=== PATIENT | female | born 1975 | race Caucasian/White ===

== ENCOUNTER 2020-04-26 15:41 | Outpatient (CLI) | payer BC, SELFPAY ==
--- NOTE | ~2020-04-26 | XR_ITS ---
XR knee RT 3V 04/26/2020 16:04 INDICATION: Right knee pain PROCEDURE: 3 views right knee COMPARISON: 04/03/2015 FINDINGS: Fracture, dislocation or subluxation is not identified. No significant joint effusion. The soft tissues appear within normal limits. No foreign bodies are identified. IMPRESSION: 1: NO ACUTE BONE OR JOINT ABNORMALITY IDENTIFIED. Reviewed, dictated and finalized at location B.
== END 2020-04-26 15:42 | disposition home or self-care (01) ==
PROVIDERS: Visit Provider Physician Assistant
DX: M25.561 Pain in right knee (principal)
CPT/HCPCS: 73562

== ENCOUNTER 2020-05-04 16:26 | Emergency (ER) | payer BC, SELFPAY ==
--- NOTE | ~2020-05-04 | CT_ITS ---
EXAMINATION: CT abdomen pelvis w con INDICATION: Abdominal pain TECHNIQUE: Computed tomographic images of the abdomen and pelvis were obtained after the administrati on of 100 cc of Omnipaque 350 intravenous contrast. The dose-length product (DLP) was 1308.52 mGy-cm. Automated exposure control and iterative reconstruction technique were employed. COMPARISON: 09/25/2016 FINDINGS: Minimal dependent atelectasis is present in the lung bases. The heart size is normal. The g allbladder is surgically absent. The liver, spleen, pancreas, and adrenal glands are normal. The kidn eys are unremarkable. No pathologically enlarged abdominal or pelvic lymph nodes are identified. Ther e is no free intraperitoneal gas or evidence of bowel obstruction. The appendix is normal. There is a fat-containing umbilical hernia. Mild lumbar spondylosis is noted. IMPRESSION: 1. No CT correlate for the patient's symptoms. Reviewed, dictated and finalized at location A.
[2020-05-04 16:54] VITALS: BP 160/58; PULSE 87; RESP 18; TEMP 36.9; O2SAT 100
[2020-05-04 17:30] LABS: Basophils Percent Auto 0.5 % (0.2-1.2); Eosinophils Absolute Auto 0.4 K/mm3 (0-0.3); Eosinophils Percent Auto 4.6 % (0-4.4); Hematocrit 43.7 % (37.0-47.0); Hemoglobin 14.4 g/dL (12.0-15.0); Immature Granulocyte Absolute 0.02 K/mm3 (0.00-0.031); Immature Granulocyte Percent A 0.2 % (0-0.5); Lymphocytes Absolute Auto 2.43 K/mm3 (0.9-3.2); Lymphocytes Percent Auto 29.6 % (18.3-44.2); Mean Corpuscular Hemoglobin 31.6 pg (26-34); Mean Corpuscular Volume 95.8 fl (80-100); Mean Platelet Volume 10.5 fl (7.4-10.4); Monocytes Absolute Auto 0.6 K/mm3 (0.1-0.6); Monocytes Percent Auto 7.4 % (2.6-8.5); Neutrophils Absolute Auto 4.7 K/mm3 (1.3-6.7); Neutrophils Percent Auto 57.7 % (45.5-73.1); Platelet Count Result 264 k/mm3 (150-375); Red Blood Count 4.56 M/mm3 (4.2-5.4); Red Cell Distribution Width 12.9 % (11.5-14.5); White Blood Count 8.2 K/mm3 (4.5-10.0)
[2020-05-04 17:33] LABS: Add Urine Microscopic? NO; Appearance Urine Clear (Clear); Bilirubin Urine Negative (Negative); Blood Urine Negative (Negative); Color Urine Colorless (Yellow); Glucose Urine UA Negative (Negative); Ketones Urine Negative (Negative); Leukocyte Esterase Ur Negative LEU/UL (Negative); Nitrate Urine Negative (Negative); Protein Urine Negative (Negative); Urobilinogen Urine Negative mg/dL (<2.0)
[2020-05-04 17:36] LABS: Specific Grav Ur 1.003 (1.001-1.035)
[2020-05-04 17:41] LABS: Alanine Aminotransferase 27 U/L (4-35); Albumin Level 4.3 g/dL (3.5-5.1); Alkaline Phosphatase 118 U/L (38-126); Anion Gap 6 mmol/L (8-16); Aspartate Amino Transferase 25 U/L (14-36); Bilirubin,Total 0.4 mg/dL (0.2-1.3); Blood Urea Nitrogen 16 mg/dL (7-17); Calcium 9.6 mg/dL (8.4-10.2); Carbon Dioxide 27 mmol/L (22-30); Chloride 105 mmol/L (98-107); Estimated Glomerular Filt Rate > 60; Glucose 109 mg/dL (65-105); Lipase 85 U/L (23-300); Potassium 3.9 mmol/L (3.4-5.0); Sodium 138 mmol/L (137-145)
[2020-05-04] MEDS: SODIUM CHLORIDE 0.9% IV 1,000 ML 999 ML IV CONT (18:47)
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
[2020-05-04 20:28] VITALS: BP 138/72; PULSE 68; RESP 16; O2SAT 99
== END 2020-05-04 20:45 | disposition home or self-care (01) ==
PROVIDERS: Emergency Medicine; Emergency Provider Emergency Medicine; PCP Physician Assistant
DX: R10.13 Epigastric pain (principal)
CPT/HCPCS: 36415; 74177; 80053; 81003; 81025; 83690; 85025; 96360; 99284; J7030; Q9967

== ENCOUNTER 2020-09-17 16:53 | Outpatient (CLI) | payer BC, SELFPAY ==
[2020-09-17 17:30] LABS: Hematocrit 41.8 % (37.0-47.0); Mean Corpuscular HGB Conc 33.5 g/dl (32-36); Mean Corpuscular Hemoglobin 32.6 pg (26-34); Mean Corpuscular Volume 97.2 fl (80-100); Platelet Count Result 246 k/mm3 (150-375); Red Cell Distribution Width 13.1 % (11.5-14.5); White Blood Count 9.5 K/mm3 (4.5-10.0)
[2020-09-17 17:48] LABS: Alanine Aminotransferase 22 U/L (4-35); Albumin Level 4.1 g/dL (3.5-5.1); Alkaline Phosphatase 113 U/L (38-126); Anion Gap 5 mmol/L (8-16); Aspartate Amino Transferase 23 U/L (14-36); Bilirubin,Total 0.3 mg/dL (0.2-1.3); Blood Urea Nitrogen 14 mg/dL (7-17); CRP 0.7 mg/dL (<1.0); Calcium 9.4 mg/dL (8.4-10.2); Carbon Dioxide 29 mmol/L (22-30); Chloride 106 mmol/L (98-107); Estimated Glomerular Filt Rate > 60; Glucose 104 mg/dL (65-105); Lipase 73 U/L (23-300); Potassium 3.6 mmol/L (3.4-5.0); Sodium 140 mmol/L (137-145)
[2020-09-17 18:04] LABS: Amylase 58 U/L (30-110)
== END 2020-09-17 16:54 | disposition home or self-care (01) ==
LOC: ANHLAB 16:55
PROVIDERS: PCP Physician Assistant; Visit Provider Internal Medicine Gastroenterology
DX: R10.84 Generalized abdominal pain (principal); R11.0 Nausea
CPT/HCPCS: 36415; 80053; 82150; 83690; 85027; 86140

== ENCOUNTER 2021-03-10 19:22 | Emergency (ER) | payer SELFPAY ==
--- NOTE | 2021-03-10 20:24 | PC.NURSE ---
no answer for triage at 2023.
[2021-03-10 20:25] VITALS: BP 124/78; PULSE 90; RESP 18; TEMP 38.1; O2SAT 97
--- NOTE | 2021-03-10 22:12 | PC.NURSE ---
pt states my is gonna come get me and i'm gonna go lie down . ambulatory c steady, even, unassisted gait. speech clear. ambulatory out of ed waiting room.
== END 2021-03-10 22:27 | disposition left against medical advice (07) ==
LOC: ANHED 22:21
PROVIDERS: PCP Physician Assistant
DX: R50.9 Fever, unspecified (principal)
CPT/HCPCS: 99199

== ENCOUNTER → 2021-04-17 13:49 | Outpatient (CLI) | payer OTHER, SELFPAY ==
--- NOTE | ~2021-04-17 | US_ITS ---
EXAMINATION: US pelvic complete w TV EXAM DATE: 04/17/2021 14:59 INDICATION: Other intra-abdominal and pelvic swelling, mass and lump . CT scan at outside institution . TECHNIQUE: Pelvic transabdominal and transvaginal sonogram was performed. There are multiple graysca le and Doppler images available for interpretation. Comparison is made to prior examination from 10/30. Correlation was made with CT abdomen pelvis 05/04/2020. FINDINGS: Uterus measures 13.3 x 8.1 cm cm, suboptimally visualized due to left pelvic mass. Endomet rial stripe not well visualized. There is no free pelvic fluid. Right adnexa: Right ovary measures 9.0 x 6.6 x 8.1 cm, has complex cystic appearance, new compared to 2010. Correlation made to CT abdomen pelvis 01/02/2020, this is also new compared to that exam. Left adnexa: Surgically removed IMPRESSION: Right ovarian pelvic mass, new compared to last year. Differential diagnosis includes hem orrhagic cyst, endometrioma, malignant or benign cystic ovarian neoplasm. Options include 6 week foll ow-up pelvic sonogram, pelvic MR, or histologic correlation. Reviewed, dictated and finalized at location A. IMPRESSION: Right ovarian pelvic mass, new compared to last year. Differential diagnosis includes hemorrhagic cyst, endometrioma, malignant or benign cystic o varian neoplasm. Options include 6 week follow-up pelvic sonogram, pelvic MR, o r histologic correlation.
== END ==
PROVIDERS: PCP Physician Assistant; Visit Provider Nurse Practitioner
DX: R19.09 Other intra-abdominal and pelvic swelling, mass and lump (principal); R93.89 Abnormal findings on diagnostic imaging of other specified body structures
CPT/HCPCS: 76830; 76856

== ENCOUNTER 2021-04-18 08:52 | Outpatient (CLI) | payer OTHER, SELFPAY ==
[2021-04-21 00:57] LABS: CA-125 21 U/mL (<35)
== END 2021-04-18 08:53 | disposition home or self-care (01) ==
LOC: ANHLAB 08:56
PROVIDERS: PCP Physician Assistant; Visit Provider Obstetrics & Gynecology Gynecology
DX: N83.291 Other ovarian cyst, right side (principal)
CPT/HCPCS: 36415; 86304

== ENCOUNTER → 2021-05-16 13:04 | Outpatient (CLI) | payer OTHER, SELFPAY ==
--- NOTE | ~2021-05-16 | US_ITS ---
EXAMINATION: US pelvic complete w TV DATE: 05/16/2021 13:32 INDICATION: Unspecified ovarian cyst, right. Pelvic pain. TECHNIQUE: Multiple transabdominal and transvaginal sonographic images of the pelvis were obtained. COMPARISON: Ultrasound 04/17/2021, CT abdomen and pelvis 03/21/2021, 05/04/2020 FINDINGS: TRANSABDOMINAL ULTRASOUND: The uterus measures 5.7 x 3.6 x 3.3 cm. There is no free fluid in the pelvis. TRANSVAGINAL ULTRASOUND: The endometrial complex measures 8 mm in thickness. There is a 1.8 cm hypoechoic intramural fibroid i n the uterine fundus. There is a 7.7 x 6.7 x 6.5 cm hypoechoic mass in the left adnexa. The ovaries a re not visualized. IMPRESSION: 1. 7.7 cm left adnexal mass with improvement from 03/21/2021, consistent with hematoma. 2. Uterine fibroid. 3. Ovaries not visualized. Reviewed, dictated and finalized at location A. IMPRESSION: 1. 7.7 cm left adnexal mass with improvement from 03/21/2021, consistent with he matoma. 2. Uterine fibroid. 3. Ovaries not visualized.
== END ==
PROVIDERS: PCP Family Medicine; Visit Provider Nurse Practitioner
DX: N83.201 Unspecified ovarian cyst, right side (principal); D25.9 Leiomyoma of uterus, unspecified
CPT/HCPCS: 76830; 76856

== ENCOUNTER 2021-05-27 10:11 | Outpatient (CLI) | payer OTHER, SELFPAY ==
--- NOTE | ~2021-05-27 | XR_ITS ---
EXAMINATION: XR chest 2V 05/27/2021 14:21 INDICATION: Covid19. Dyspnea. PROCEDURE: 2 view chest COMPARISON: 05/22/2016 FINDINGS: The lungs are clear. The cardiomediastinal silhouette is within normal limits. There are no pleural effusions. There is no pneumothorax suspected. IMPRESSION: 1: NO ACUTE CARDIOPULMONARY DISEASE. Reviewed, dictated and finalized at location B.
[2021-05-27 10:54] LABS: Basophils Absolute Auto 0.1 K/mm3 (0.0-0.1); Basophils Percent Auto 1.1 % (0.2-1.2); Eosinophils Absolute Auto 0.2 K/mm3 (0-0.3); Eosinophils Percent Auto 3.4 % (0-4.4); Hematocrit 42.9 % (37.0-47.0); Hemoglobin 14.1 g/dL (12.0-15.0); Immature Granulocyte Absolute 0.01 K/mm3 (0.00-0.031); Immature Granulocyte Percent A 0.2 % (0-0.5); Lymphocytes Percent Auto 37.4 % (18.3-44.2); Mean Corpuscular HGB Conc 32.9 g/dl (32-36); Mean Corpuscular Hemoglobin 31.3 pg (26-34); Mean Corpuscular Volume 95.3 fl (80-100); Mean Platelet Volume 9.8 fl (7.4-10.4); Monocytes Absolute Auto 0.4 K/mm3 (0.1-0.6); Monocytes Percent Auto 7.8 % (2.6-8.5); Neutrophils Absolute Auto 2.8 K/mm3 (1.3-6.7); Neutrophils Percent Auto 50.1 % (45.5-73.1); Platelet Count Result 251 k/mm3 (150-375); Red Cell Distribution Width 13.8 % (11.5-14.5); White Blood Count 5.6 K/mm3 (4.5-10.0)
[2021-05-27 11:14] LABS: Cholesterol 287 mg/dL (0-200); HDL Direct 38 mg/dL; Triglycerides 253 mg/dL (<150)
[2021-05-27 11:26] LABS: LDL Cholesterol Direct 205 mg/dL
[2021-05-27 12:06] LABS: Iron 126 ug/dL (37-170)
[2021-05-27 12:15] LABS: Percent Iron Saturation 54 % (20-50)
[2021-05-27 12:27] LABS: Folic Acid 12.9 ng/mL (2.76->20)
== END 2021-05-27 10:12 | disposition home or self-care (01) ==
PROVIDERS: PCP Family Medicine; Visit Provider Nurse Practitioner Family
DX: U07.1 COVID-19 (principal); D64.9 Anemia, unspecified; J12.82 Pneumonia due to coronavirus disease 2019; R53.1 Weakness; Z13.220 Encounter for screening for lipoid disorders
CPT/HCPCS: 36415; 71046; 80061; 82607; 82728; 82746; 83540; 83550; 84443; 85025

== ENCOUNTER 2021-06-06 10:27 | Outpatient (CLI) | payer OTHER, SELFPAY ==
[2021-06-06 11:27] LABS: Alanine Aminotransferase 25 U/L (4-35); Alkaline Phosphatase 83 U/L (38-126); Anion Gap 5 mmol/L (8-16); Aspartate Amino Transferase 29 U/L (14-36); Bilirubin,Total 0.5 mg/dL (0.2-1.3); Blood Urea Nitrogen 6 mg/dL (7-17); Calcium 9.8 mg/dL (8.4-10.2); Carbon Dioxide 30 mmol/L (22-30); Chloride 104 mmol/L (98-107); Estimated Glomerular Filt Rate > 60; Glucose 95 mg/dL (65-110); Potassium 3.5 mmol/L (3.4-5.0); Sodium 139 mmol/L (137-145)
== END 2021-06-06 10:28 | disposition home or self-care (01) ==
LOC: ANHLAB 10:29
PROVIDERS: PCP Family Medicine; Visit Provider Nurse Practitioner Family
DX: D64.9 Anemia, unspecified (principal); R53.1 Weakness; Z68.31 Body mass index [BMI] 31.0-31.9, adult; U07.1 COVID-19; J12.82 Pneumonia due to coronavirus disease 2019
CPT/HCPCS: 36415; 80053

== ENCOUNTER 2021-07-29 09:46 | Outpatient (CLI) | payer OTHER, SELFPAY ==
--- NOTE | ~2021-07-29 | XR_ITS ---
EXAMINATION: XR shoulder RT min 2V DATE: 07/29/2021 10:10 INDICATION: Right shoulder pain TECHNIQUE: AP internally and externally rotated, AP oblique externally rotated and transscapular Y vi ews of the right shoulder were obtained. COMPARISON: None FINDINGS: Normal alignment. No fracture. Glenohumeral joint is normal. Mild acromioclavicular osteoarthritis. The acromion undersurface is curved in morphology (type II). Mild to moderate thoracic spondylosis. Soft tissues are unremarkable. Right lung is clear with no pleural effusion or pneumothorax. IMPRESSION: Mild right acromioclavicular osteoarthritis. No acute osseous abnormality. Reviewed, dictated and finalized at [facility]. [employer]
== END 2021-07-29 09:47 | disposition home or self-care (01) ==
LOC: ANHIMG 09:50
PROVIDERS: PCP Family Medicine; Visit Provider Nurse Practitioner Family
DX: M25.511 Pain in right shoulder (principal); M47.814 Spondylosis without myelopathy or radiculopathy, thoracic region
CPT/HCPCS: 73030

== ENCOUNTER 2021-08-14 15:49 | Outpatient (CLI) | payer OTHER, SELFPAY ==
--- NOTE | ~2021-08-14 | US_ITS ---
EXAMINATION: US pelvic complete w TV EXAM DATE: 08/14/2021 17:44 INDICATION: Ovarian cyst. TECHNIQUE: Pelvic transabdominal and transvaginal sonogram was performed. There are multiple graysca le and Doppler images available for interpretation. Comparison is made to prior examination from 05/16, correlation made to CT scan from outside institution 03/21/2021. FINDINGS: Uterus measures 4.4 x 3.7 x 4.3 cm, is retroverted, possibly with 1 cm fibroid posteriorly . Endometrial stripe measures 10 mm, within normal limits. There is no free pelvic fluid. Right adnexa: The ovary is not identified. There is no adnexal mass. Left adnexa: Reportedly left-sided nephrectomy. Complex cystic left ovarian mass measuring 3.9 x 3.6 x 5.2 cm (previous dimensions obtained at 7.7 x 6.7 x 6.5). Correlating with prior outside CT scan pa jessica did have large hematoma in the left side of the pelvis and retroperitoneum. IMPRESSION: Persistent nonspecific left adnexal region mass with continued interval decrease in size. Could be chronic hematoma seroma given prior imaging. Solid mass not excludable but would be unusual given oophorectomy. Reviewed, dictated and finalized at location A. [employer] IMPRESSION: Persistent nonspecific left adnexal region mass with continued inte rval decrease in size. Could be chronic hematoma seroma given prior imaging. So lid mass not excludable but would be unusual given oophorectomy.
== END 2021-08-14 15:50 | disposition home or self-care (01) ==
PROVIDERS: PCP Family Medicine; Visit Provider Obstetrics & Gynecology Gynecology
DX: N83.202 Unspecified ovarian cyst, left side (principal)
CPT/HCPCS: 76830; 76856

== ENCOUNTER 2021-11-11 07:04 | Outpatient (CLI) | payer OTHER, SELFPAY ==
[2021-11-11 07:45] LABS: Hematocrit 43.4 % (37.0-47.0); Hemoglobin 14.1 g/dL (12.0-15.0); Mean Corpuscular HGB Conc 32.5 g/dl (32-36); Mean Corpuscular Volume 98.4 fl (80-100); Mean Platelet Volume 10.1 fl (7.4-10.4); Platelet Count Result 226 k/mm3 (150-375); Red Blood Count 4.41 M/mm3 (4.2-5.4); Red Cell Distribution Width 12.6 % (11.5-14.5); White Blood Count 5.4 K/mm3 (4.5-10.0)
[2021-11-11 08:32] LABS: Iron 120 ug/dL (37-170)
[2021-11-11 08:41] LABS: Percent Iron Saturation 44 % (20-50)
== END 2021-11-11 07:05 | disposition home or self-care (01) ==
LOC: ANHLAB 07:05
PROVIDERS: PCP Family Medicine; Visit Provider Nurse Practitioner Family
DX: D64.9 Anemia, unspecified (principal)
CPT/HCPCS: 36415; 83540; 83550; 85027

== ENCOUNTER 2021-12-06 09:43 | Outpatient (CLI) | payer OTHER, SELFPAY ==
[2021-12-06 09:58] LABS: Hematocrit 47.1 % (37.0-47.0); Hemoglobin 15.6 g/dL (12.0-15.0); Mean Corpuscular HGB Conc 33.1 g/dl (32-36); Mean Corpuscular Hemoglobin 31.8 pg (26-34); Mean Corpuscular Volume 96.1 fl (80-100); Mean Platelet Volume 9.5 fl (7.4-10.4); Platelet Count Result 225 k/mm3 (150-375); Red Cell Distribution Width 12.3 % (11.5-14.5); White Blood Count 6.2 K/mm3 (4.5-10.0)
[2021-12-06 10:11] LABS: Alanine Aminotransferase 34 U/L (4-35); Albumin Level 4.3 g/dL (3.5-5.1); Alkaline Phosphatase 131 U/L (38-126); Anion Gap 7 mmol/L (8-16); Aspartate Amino Transferase 33 U/L (14-36); Bilirubin,Total 0.3 mg/dL (0.2-1.3); Blood Urea Nitrogen 12 mg/dL (7-17); Calcium 9.3 mg/dL (8.4-10.2); Carbon Dioxide 27 mmol/L (22-30); Chloride 103 mmol/L (98-107); Estimated Glomerular Filt Rate > 60; Glucose 97 mg/dL (65-110); Potassium 3.3 mmol/L (3.4-5.0); Sodium 137 mmol/L (137-145)
== END 2021-12-06 09:44 | disposition home or self-care (01) ==
LOC: ANHLAB 09:45
PROVIDERS: PCP Family Medicine; Visit Provider Nurse Practitioner Family
DX: R19.7 Diarrhea, unspecified (principal)
CPT/HCPCS: 36415; 80053; 85027

== ENCOUNTER 2021-12-30 12:30 | Outpatient (CLI) | payer OTHER, SELFPAY ==
--- NOTE | ~2021-12-30 | US_ITS ---
EXAMINATION: US pelvic complete w TV DATE: 12/30/2021 13:31 INDICATION: Follow-up left adnexal mass/hematoma Comparison:Ultrasound dated 08/14/2021 TECHNIQUE: Multiple transabdominal and endovaginal sonographic images of the pelvis performed. FINDINGS: The uterus measures 5.7 x 3.3 x 3 cm. The endometrial complex measures 2 mm. There is a sma ll fibroid at the fundus measuring 1.2 x 0.7 x 0.5 cm The right ovary measures 1.2 x 1 x 1 cm and the left ovary is absent surgically. There is trace free fluid in the pelvis. There are no abnormal masses seen on either side. IMPRESSION: 1. Small uterine fibroid at the fundus measuring 1.2 cm maximum dimension. Reviewed, dictated and finalized at location A.
== END 2021-12-30 12:31 | disposition home or self-care (01) ==
PROVIDERS: PCP Family Medicine; Visit Provider Obstetrics & Gynecology Gynecology
DX: R19.04 Left lower quadrant abdominal swelling, mass and lump (principal); D25.9 Leiomyoma of uterus, unspecified
CPT/HCPCS: 76830; 76856

== ENCOUNTER 2022-02-23 11:33 | Emergency (ER) | payer OTHER, SELFPAY ==
[2022-02-23 11:59] VITALS: BP 173/76; PULSE 68; RESP 16; TEMP 37.2; O2SAT 100
--- NOTE | 2022-02-23 12:36 | ED.SKABFB ---
HPI - Skin/Abscess/Foreign Bdy General Chief complaint: Skin/Abscess/Foreign Body Stated complaint: swollen/redness/itchy face Time Seen by Provider: 02/23/22 12:37 Source: patient and RN notes reviewed Mode of arrival: ambulatory Limitations: no limitations History of Present Illness HPI narrative: 47-year-old female presents to the [facility] with complaints of a rash to her face and anterior neck after applying some vitamin C cream. States that she was out of Benadryl. Has not taken anything. Reports that started today. No lip or tongue swelling. No chest pain or shortness of breath. Describes it as very itchy. Related Data Home Medications Medication Instructions Recorded Confirmed multivitamin 1 tablet PO DAILY 05/08/20 12/06/21 Allergies Allergy/AdvReac Type Severity Reaction Status Date / Time bupivacaine Allergy Unknown Hypotension Verified 12/06/21 08:56 BUPIVACAINE HCL AdvReac Intermediate HR DROP Uncoded 12/06/21 08:56 Review of Systems Review of Systems: All systems reviewed & are unremarkable except as noted in HPI and below Constitutional: Constitutional: Reports no additional constitutional complaints, Denies chills and Denies fever(s) Eyes: Eyes: Reports no additional eye complaints ENT: Reports system reviewed and no additional complaints, except as documented Cardiovascular: Cardiovascular: Reports no additional cardiovascular complaints Respiratory: Respiratory: Reports no additional respiratory complaints Gastrointestinal: Gastrointestinal: Reports no additional gastrointestinal complaints Musculoskeletal: Musculoskeletal: Reports no additional musculoskeletal complaints Integumentary/Breasts: Skin/Breast: Reports as per HPI and Reports rash Neurologic: Reports system reviewed and no additional complaints, except as documented Psychiatric: Psychiatric: Reports no additional psychiatric complaints Allergic/Immunologic: Allergic/Immunologic: Reports no additional allergic/immunologic complaints [facility] Past Medical History Medical History Adult BMI 32.0-32.9 kg/sq m BMI 31.0-31.9,adult Surgical History Surgical History Hx laparoscopic cholecystectomy 12/04/2009 at [facility] with Dr. houser Hx of section Hx of laparoscopy multiple for endometriosis Hx of tonsillectomy Family History Family History Mother Hypertension Depression Arthritis Father Patient's father is Family history of cardiovascular disease Acute myocardial infarction Sibling Family history of cardiovascular disease COPD (chronic obstructive pulmonary disease) Sibling Family history of [place] (myocardial infarction) COVID-19 Acute myocardial infarction Grandparent Family history of malignant neoplasm of breast Family history of cardiovascular disease Other Family history of heart disease in male family member before age 55 Family history of malignant neoplasm of breast in first degree relative Social History Social History Second hand tobacco smoke exposure: Yes Alcohol intake: current Substance use: never Substance use type: does not use 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 There is no relevant family history pertinent to the patient complaint. Exam Const: General: healthy appearing, no acute distress and alert Nutritional Appearance: well nourished Orientation/consciousness: patient oriented x3 Limitations: no limitations HENMT: Head: normal to inspection Ears: external ears normal Mouth: Yes Normal oral and palatal mucosa pres
== END 2022-02-23 12:52 | disposition home or self-care (01) ==
PROVIDERS: Emergency Provider Nurse Practitioner
DX: L25.9 Unspecified contact dermatitis, unspecified cause (principal)
CPT/HCPCS: 99213; G0463

== ENCOUNTER 2022-03-28 07:38 | Emergency (ER) | payer OTHER, SELFPAY ==
[2022-03-28] VITALS (15 sets, daily range): BP systolic 123–167; BP diastolic 66–109; PULSE 95–102; RESP 16; TEMP 36.8; O2SAT 86–99
--- NOTE | ~2022-03-28 | CT_ITS ---
EXAMINATION: CT abdomen pelvis w con INDICATION: Left flank pain TECHNIQUE: Computed tomographic images of the abdomen and pelvis were obtained after the administrati on of 100 cc of Omnipaque 350 intravenous contrast. The dose-length product (DLP) was 936.05 mGy-cm. Automated exposure control and iterative reconstruction technique were employed. COMPARISON: 05/04/2020 FINDINGS: Minimal dependent atelectasis is present in the lung bases. The heart size is normal. The g allbladder is surgically absent. There is focal fatty infiltration of the liver near the ligamentum t eres. The spleen, pancreas, and adrenal glands are normal. The kidneys are unremarkable. The appendix is normal. There is inflammation and a small amount of fluid in the left pelvis and left internal in guinal region which tracks into the cul-de-sac. IMPRESSION: 1. Small amount of free fluid in the left pelvis of unclear etiology which could possibly be related to the left adnexa or ovary. Further evaluation with pelvic ultrasound is recommended. Reviewed, dictated and finalized at location A. IMPRESSION: 1. Small amount of free fluid in the left pelvis of unclear etiology which coul d possibly be related to the left adnexa or ovary. Further evaluation with pelv ic ultrasound is recommended.
--- NOTE | ~2022-03-28 | US_ITS ---
EXAMINATION: US transvaginal DATE: 03/28/2022 12:16 INDICATION: Left flank pain. Fluid seen in the left adnexa on CT examination. Postmenopausal. Comparison:CT dated 03/28/2022 TECHNIQUE: Multiple transabdominal and endovaginal sonographic images of the pelvis performed. FINDINGS: The uterus measures 5.7 x 3.9 x 4.8 cm. The endometrial complex measures 1 mm. Small amount of fluid in the endometrium. There is a small uterine fibroid measuring 8 mm at the fundus.. The ovaries are not visualized. There is no free fluid in the pelvis. There are no abnormal masses seen on either side. IMPRESSION: 1. Small amount of free fluid in the pelvis, nonspecific. No adnexal masses are identified. 2: Normal endometrial thickness with trace fluid in the endometrium. 3: Small 8 mm uterine fibroid at the fundus. Reviewed, dictated and finalized at location B.
--- NOTE | 2022-03-28 07:47 | ED.BACK ---
HPI - Back Pain/Injury General Chief Complaint: Back Pain/Injury Stated Complaint: 2nd COVID shot - not feeling well Time Seen by Provider: 03/28/22 07:42 History of Present Illness HPI Narrative: Patient states she got her second COVID shot yesterday, and then around 1 AM started having chills and body aches. She was concerned because she also started having some pain in her left flank, and overwhelming urge to urinate, and was unable to the bathroom when she cannot hold it anymore. She was concerned because she has had similar symptoms in the past where she had kidney bleeding. Related Data Home Medications Medication Instructions Recorded Confirmed multivitamin 1 tablet PO DAILY 05/08/20 02/24/22 Allergies Allergy/AdvReac Type Severity Reaction Status Date / Time bupivacaine Allergy Unknown Hypotension Verified 02/24/22 13:07 BUPIVACAINE HCL AdvReac Intermediate HR DROP Uncoded 02/24/22 13:07 Review of Systems Review of Systems: CONST: No fever. HEENT: No sore throat C/V: No chest pain RESP: No cough GI: Left flank pain : dysuria. M/S: Muscle pains SKIN: No rash. NEURO: [No headache or focal numbness or weakness] PSYCH: [No depression] PMFSH Past Medical History Medical History Adult BMI 32.0-32.9 kg/sq m BMI 31.0-31.9,adult BMI 33.0-33.9,adult Surgical History Surgical History Hx laparoscopic cholecystectomy 12/04/[address] [facility] [address] houser Hx of section Hx of laparoscopy multiple for endometriosis Hx of tonsillectomy Family History Family History Mother Hypertension Depression Arthritis Father Patient's father is Family history of cardiovascular disease Acute myocardial infarction Sibling Family history of cardiovascular disease COPD (chronic obstructive pulmonary disease) Sibling Family history of [place] (myocardial infarction) COVID-19 Acute myocardial infarction Grandparent Family history of malignant neoplasm of breast Family history of cardiovascular disease Other Family history of heart disease in male family member before age 55 Family history of malignant neoplasm of breast in first degree relative Social History Social History Smoking status: Never smoker Second hand tobacco smoke exposure: Yes Alcohol intake: current Substance use: never Substance use type: does not use 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 EYES: EOMI, conjunctiva normal ENT: Hearing grossly intact LUNGS: Nonlabored breathing. HEART: [Regular rate and rhythm] ABD: Soft nontender abdomen, some left CVA tenderness EXT: Normal range of motion SKIN: [No rashes or lesions.] NEURO: [Alert and oriented x 3. No gross focal sensory or strength deficits.] PSYCH: Normal affect Course Vital Signs Vital signs: Vital Signs Temperature 98.3 F 03/28/22 07:42 Pulse Rate 102 H 03/28/22 07:42 Respiratory Rate 16 03/28/22 07:42 Blood Pressure 167/109 H 03/28/22 07:42 Pulse Oximetry 99 03/28/22 07:42 Oxygen Delivery Room Air 03/28/22 07:42 Temperature 98.3 F 03/28/22 07:42 Pulse Rate 102 H 03/28/22 07:42 Respiratory Rate 16 03/28/22 07:42 Blood Pressure 142/83 H 03/28/22 11:31 Pulse Oximetry 97 03/28/22 11:31 Oxygen Delivery Room Air 03/28/22 07:42 MDM - Back Pain/Injury MDM Narrative Medical decision making narrative: 47-year-old female presents concerned she may have bleeding again in her abdomen as she had similar symptoms in the past, vital
[2022-03-28] MEDS: ACETAMINOPHEN 500 MG TABLET 1000 MG PO (08:01)
[2022-03-28 08:14] LABS: Basophils Percent Auto 0.3 % (0.2-1.2); Eosinophils Absolute Auto 0.1 K/mm3 (0-0.3); Hemoglobin 13.7 g/dL (12.0-15.0); Immature Granulocyte Absolute 0.02 K/mm3 (0.00-0.031); Immature Granulocyte Percent A 0.3 % (0-0.5); Lymphocytes Absolute Auto 0.39 K/mm3 (0.9-3.2); Lymphocytes Percent Auto 5.4 % (18.3-44.2); Mean Corpuscular HGB Conc 33.4 g/dl (32-36); Mean Corpuscular Volume 95.8 fl (80-100); Mean Platelet Volume 9.5 fl (7.4-10.4); Monocytes Absolute Auto 0.3 K/mm3 (0.1-0.6); Neutrophils Absolute Auto 6.4 K/mm3 (1.3-6.7); Platelet Count Result 185 k/mm3 (150-375); Red Blood Count 4.28 M/mm3 (4.2-5.4); Red Cell Distribution Width 12.4 % (11.5-14.5); White Blood Count 7.2 K/mm3 (4.5-10.0)
[2022-03-28 08:26] LABS: Appearance Urine Clear (Clear); Bilirubin Urine Negative (Negative); Blood Urine Negative (Negative); Color Urine Yellow (Yellow); Glucose Urine UA Negative (Negative); Ketones Urine Negative (Negative); Leukocyte Esterase Ur Negative LEU/UL (Negative); Nitrate Urine Negative (Negative); Protein Urine Negative (Negative); Urobilinogen Urine 0.2 mg/dL (<2.0); pH Urine 8.5 (5.0-9.0)
[2022-03-28 08:28] LABS: Alanine Aminotransferase 19 U/L (6-35); Alkaline Phosphatase 113 U/L (38-126); Anion Gap 8 mmol/L (8-16); Aspartate Amino Transferase 20 U/L (14-36); Bilirubin,Total 0.6 mg/dL (0.2-1.3); Blood Urea Nitrogen 12 mg/dL (7-17); Calcium 9.2 mg/dL (8.4-10.2); Carbon Dioxide 26 mmol/L (22-30); Chloride 100 mmol/L (98-107); Estimated CRCL calculation 87 ml/min; Estimated Glomerular Filt Rate > 60; Glucose 109 mg/dL (65-110); Potassium 3.8 mmol/L (3.4-5.0); Sodium 134 mmol/L (137-145)
[2022-03-28 08:31] LABS: Add Urine Microscopic? NO
[2022-03-28] MEDS: MORPHINE SULFATE (*CRX) 4 MG/ML INJ IV PUSH (10:46)
== END 2022-03-28 12:58 | disposition home or self-care (01) ==
PROVIDERS: Emergency Provider Emergency Medicine; PCP Nurse Practitioner Family
DX: R10.2 Pelvic and perineal pain (principal); T50.B95A Adverse effect of other viral vaccines, initial encounter; Z77.22 Contact with and (suspected) exposure to environmental tobacco smoke (acute) (chronic)
CPT/HCPCS: 36415; 74177; 76830; 80053; 81003; 85025; 96374; 99284; A9270; J2270; Q9967

== ENCOUNTER 2022-04-05 14:42 | Emergency (ER) | payer OTHER, SELFPAY ==
--- NOTE | ~2022-04-05 | XR_ITS ---
EXAM: XR ribs LT 2V w CXR 2V DATE: 04/05/2022 15:24 HISTORY: left anterior rib pain s/p fall 5 days ago . COMPARISON: 05/27/2021. FINDINGS: Normal mineralization. No fracture or dislocation. No lytic or blastic lesion. Low lung vo lumes, otherwise clear. Unremarkable cardiomediastinal silhouette. Cholecystectomy clips. Stable exag gerated thoracic kyphosis. Osteopenia. IMPRESSION: No acute osseous finding in the left ribs. Reviewed, dictated and finalized at location K.
[2022-04-05 15:01] VITALS: BP 141/98; PULSE 92; RESP 16; TEMP 37.1; O2SAT 100
--- NOTE | 2022-04-05 15:33 | ED.GENADULT ---
HPI - General Adult General Chief complaint: Unspecified Stated complaint: RIB PAIN Time Seen by Provider: 04/05/22 15:34 History of Present Illness HPI narrative: Kourtney Parry is a 47 yo female with only PMH related to COVID in March 30 including pneumonia DIC respiratory failure and long-term COVID symptoms such as loss of short-term memory loss-[facility] a fall on Thursday where she fell straight out and hit her left rib cage on the concrete she has abrasions on her legs and on her arms but her rib cage still is hurting. No sob but pain with movement Related Data Allergies Allergy/AdvReac Type Severity Reaction Status Date / Time bupivacaine Allergy Unknown Hypotension Verified 04/05/22 14:59 BUPIVACAINE HCL AdvReac Intermediate HR DROP Uncoded 04/05/22 14:59 Review of Systems Review of Systems: CONSTITUTIONAL: Denies fever, chills, sweats. EYES: Denies visual changes, redness, discharge. ENT: Denies rhinorrhea, congestion, sore throat, otalgia. CARDIOVASCULAR: Denies chest pain, palpitations, edema. RESPIRATORY: Denies dyspnea, wheezing, cough GASTROINTESTINAL: Denies abdominal pain, nausea, vomiting, diarrhea. GENITOURINARY: Denies dysuria, hematuria, abnormal discharge SKIN: Denies rash or itching. NEUROLOGIC: Denies numbness, or focal weakness. PSYCHIATRIC: Denies anxiety or depression. Left-sided anterior rib pain PMFSH Past Medical History Medical History Adult BMI 32.0-32.9 kg/sq m BMI 31.0-31.9,adult BMI 33.0-33.9,adult COVID-19 Surgical History Surgical History Hx laparoscopic cholecystectomy 12/04/2009 at [facility] with Dr. houser Hx of section Hx of laparoscopy multiple for endometriosis Hx of tonsillectomy Family History Family History Mother Hypertension Depression Arthritis Father Patient's father is Family history of cardiovascular disease Acute myocardial infarction Sibling Family history of cardiovascular disease COPD (chronic obstructive pulmonary disease) Sibling Family history of [place] (myocardial infarction) COVID-19 Acute myocardial infarction Grandparent Family history of malignant neoplasm of breast Family history of cardiovascular disease Other Family history of heart disease in male family member before age 55 Family history of malignant neoplasm of breast in first degree relative Social History Social History Smoking status: Never smoker Second hand tobacco smoke exposure: Yes Alcohol intake: current Substance use: never Substance use type: does not use 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 HEAD: normocephalic, atraumatic. EYES: Sclera clear/white. Vision is grossly intact. EARS: External ears normal, auditory canals clear and without drainage, TMs normal without perforation. Hearing grossly intact. NOSE: External nose normal without nasal discharge, nares without redness, no rhinorrhea. THROAT: Mucous membranes moist, NECK: Neck supple, non-tender CARDIOVASCULAR: Regular rate and rhythm without murmurs, gallops, or rubs.L sided rib pain that is reproduced with turning and movement up and down RESPIRATORY: Clear to auscultation. Breath sounds equal bilaterally. No wheezes, rales, or rhonchi. GASTROINTESTINAL: Abdomen soft, non-tender, SKIN: warm, intact with no suspicious lesions or rash, good texture and turgor. NEURO: awake, alert, and oriented to person, place and time. There were no obvious focal neurologic abnormalities. Steady gait EXTREMITIES: Normal range of motion. BACK: Nontender without deformity Course Cou
== END 2022-04-05 15:54 | disposition home or self-care (01) ==
PROVIDERS: Emergency Provider Nurse Practitioner; PCP Nurse Practitioner Family
DX: S20.212A Contusion of left front wall of thorax, initial encounter (principal); W19.XXXA Unspecified fall, initial encounter; Z86.16 Personal history of COVID-19
CPT/HCPCS: 71046; 71100; 99213; G0463

== ENCOUNTER 2022-04-08 16:47 | Outpatient (CLI) | payer OTHER, SELFPAY ==
[2022-04-08 17:18] LABS: Hematocrit 43.5 % (37.0-47.0); Hemoglobin 14.3 g/dL (12.0-15.0); Mean Corpuscular HGB Conc 32.9 g/dl (32-36); Mean Corpuscular Hemoglobin 31.8 pg (26-34); Mean Corpuscular Volume 96.7 fl (80-100); Mean Platelet Volume 9.3 fl (7.4-10.4); Platelet Count Result 356 k/mm3 (150-375); Red Cell Distribution Width 12.7 % (11.5-14.5); White Blood Count 8.6 K/mm3 (4.5-10.0)
[2022-04-08 17:37] LABS: Rheumatoid Factor < 8.6 IU/ML (<12)
[2022-04-08 17:39] LABS: CRP < 0.5 mg/dL (<1.0)
[2022-04-08 18:01] LABS: Erythrocyte Sedimentation Rate 12 mm/hr (0-20)
== END 2022-04-08 16:48 | disposition home or self-care (01) ==
LOC: ANHLAB 16:49
PROVIDERS: PCP Family Medicine; Visit Provider Nurse Practitioner Family
DX: M25.50 Pain in unspecified joint (principal)
CPT/HCPCS: 36415; 85027; 85652; 86038; 86140; 86430

== ENCOUNTER 2022-05-02 06:50 | Outpatient (CLI) | payer OTHER, SELFPAY ==
--- NOTE | ~2022-05-02 | MR_ITS ---
EXAMINATION: MR brain/brain stem wo con DATE: 05/02/2022 07:29 INDICATION: Cognitive decline. Memory loss. TECHNIQUE: Magnetic resonance imaging (MRI) of the brain and brainstem was performed without intraven ous contrast. Sequences included sagittal T1-weighted FSE and axial T2-weighted SE. The exam was term inated early due to claustrophobia. COMPARISON: Head CT 11/20/2011 FINDINGS: There are scattered areas of nonspecific increased T2-weighted signal intensity in the cere bral white matter. There is no abnormal mass. The ventricles are normal in size. The orbits are kelsea l. The mastoid air cells are normal. The paranasal sinuses are clear. IMPRESSION: 1. Mild nonspecific cerebral white matter disease. The differential diagnosis includes premature lunchroom aide princess small vessel ischemic disease (especially if the patient has cardiovascular risk factors), demyel inating disease such as multiple sclerosis, drug abuse, vasculitis, or reactive astrocytosis (gliosis ) secondary to nonspecific etiology. 2. Few sequences were performed due to the patient's claustrophobia, which decreases sensitivity. Reviewed, dictated and finalized at location A. IMPRESSION: 1. Mild nonspecific cerebral white matter disease. The differential diagnosis i ncludes premature chronic small vessel ischemic disease (especially if the [place] ent has cardiovascular risk factors), demyelinating disease such as multiple sc lerosis, drug abuse, vasculitis, or reactive astrocytosis (gliosis) secondary t o nonspecific etiology. 2. Few sequences were performed due to the patient's claustrophobia, which decr eases sensitivity.
== END 2022-05-02 06:51 | disposition home or self-care (01) ==
PROVIDERS: PCP Family Medicine; Visit Provider Nurse Practitioner Family
DX: R41.81 Age-related cognitive decline (principal); R90.82 White matter disease, unspecified; F40.240 Claustrophobia
CPT/HCPCS: 70551

== ENCOUNTER 2022-06-06 07:10 | Outpatient (CLI) | payer OTHER, SELFPAY ==
--- NOTE | ~2022-06-06 | XR_ITS ---
XR knee RT 3V 06/06/2022 07:33 Indication: Right knee pain Procedure: 3 views right knee Comparison: 04/26/2020 Findings: No significant joint space narrowing. No fracture, subluxation or dislocation. There is shannan tomic alignment. No joint effusion. No foreign bodies. Impression: 1: No significant bone or joint abnormality. Reviewed, dictated and finalized at location D. Impression: 1: No significant bone or joint abnormality.
== END 2022-06-06 07:11 | disposition home or self-care (01) ==
PROVIDERS: PCP Family Medicine; Visit Provider Nurse Practitioner Family
DX: M25.369 Other instability, unspecified knee (principal)
CPT/HCPCS: 73562

== ENCOUNTER 2022-07-24 13:41 | Outpatient (CLI) | payer OTHER, SELFPAY ==
[2022-07-24 14:56] LABS: Basophils Absolute Auto 0.1 K/mm3 (0.0-0.1); Basophils Percent Auto 0.6 % (0.2-1.2); Eosinophils Absolute Auto 0.3 K/mm3 (0-0.3); Eosinophils Percent Auto 3.8 % (0-4.4); Hematocrit 44.5 % (37.0-47.0); Hemoglobin 14.5 g/dL (12.0-15.0); Immature Granulocyte Absolute 0.01 K/mm3 (0.00-0.031); Immature Granulocyte Percent A 0.1 % (0-0.5); Lymphocytes Absolute Auto 2.66 K/mm3 (0.9-3.2); Lymphocytes Percent Auto 31.8 % (18.3-44.2); Mean Corpuscular HGB Conc 32.6 g/dl (32-36); Mean Corpuscular Hemoglobin 31.8 pg (26-34); Mean Corpuscular Volume 97.6 fl (80-100); Mean Platelet Volume 10.1 fl (7.4-10.4); Monocytes Absolute Auto 0.6 K/mm3 (0.1-0.6); Monocytes Percent Auto 7.1 % (2.6-8.5); Neutrophils Absolute Auto 4.7 K/mm3 (1.3-6.7); Neutrophils Percent Auto 56.6 % (45.5-73.1); Platelet Count Result 254 k/mm3 (150-375); Red Blood Count 4.56 M/mm3 (4.2-5.4); Red Cell Distribution Width 12.6 % (11.5-14.5); White Blood Count 8.4 K/mm3 (4.5-10.0)
[2022-07-24 15:12] LABS: Vitamin D 25 Hydroxy 21.2 ng/mL
[2022-07-29 11:38] LABS: Methylmalonic Acid 236 nmol/L (87-318)
[2022-07-29 21:38] LABS: Homocysteine 11.8 umol/L (<10.4)
[2022-08-02 14:16] LABS: Red Blood Cell Folate 562 ng/mL RBC (>280)
== END 2022-07-24 13:42 | disposition home or self-care (01) ==
LOC: ANHLAB 13:43
PROVIDERS: PCP Family Medicine; Visit Provider Student in an Organized Health Care Education/Training Program
DX: R68.89 Other general symptoms and signs (principal)
CPT/HCPCS: 36415; 82306; 82607; 82728; 82747; 83090; 83921; 84443; 85025

== ENCOUNTER 2022-11-07 10:33 | Outpatient (CLI) | payer OTHER, SELFPAY ==
[2022-11-07 11:03] LABS: Hematocrit 44.4 % (37.0-47.0); Hemoglobin 14.4 g/dL (12.0-15.0); Mean Corpuscular HGB Conc 32.4 g/dl (32-36); Mean Corpuscular Hemoglobin 31.9 pg (26-34); Mean Corpuscular Volume 98.2 fl (80-100); Mean Platelet Volume 9.9 fl (7.4-10.4); Platelet Count Result 266 k/mm3 (150-375); Red Blood Count 4.52 M/mm3 (4.2-5.4); Red Cell Distribution Width 12.7 % (11.5-14.5); White Blood Count 6.7 K/mm3 (4.5-10.0)
[2022-11-07 11:25] LABS: Iron 86 ug/dL (37-170)
[2022-11-07 11:37] LABS: Percent Iron Saturation 30 % (20-50)
[2022-11-12 04:48] LABS: FSH 123.8 mIU/mL (***)
[2022-11-16 15:37] LABS: Estrogen 165.2 pg/mL
== END 2022-11-07 10:34 | disposition home or self-care (01) ==
LOC: ANHLAB 10:34
PROVIDERS: PCP Family Medicine; Visit Provider Nurse Practitioner Family
DX: R68.89 Other general symptoms and signs (principal); D64.9 Anemia, unspecified; I10 Essential (primary) hypertension
CPT/HCPCS: 36415; 82672; 83001; 83540; 83550; 85027

== ENCOUNTER 2022-11-26 09:00 | Outpatient (CLI) | payer OTHER, SELFPAY ==
--- NOTE | ~2022-11-26 | XR_ITS ---
Left foot Technique: AP, oblique, and lateral views were obtained. Clinical History: Injury Findings: No acute fracture or dislocation is seen. Osseous alignment is anatomic. Joint spaces are p reserved without erosive or degenerative change. Soft tissues are unremarkable. Impression: Unremarkable left foot radiographs. Reviewed, dictated and finalized at location . Impression: Unremarkable left foot radiographs.
== END 2022-11-26 09:01 | disposition home or self-care (01) ==
PROVIDERS: PCP Family Medicine; Visit Provider Nurse Practitioner Family
DX: S99.929A Unspecified injury of unspecified foot, initial encounter (principal); T14.90XA Injury, unspecified, initial encounter
CPT/HCPCS: 73630

== ENCOUNTER 2023-04-07 14:02 | Outpatient (CLI) | payer OTHER, SELFPAY ==
[2023-04-07 14:57] LABS: Basophils Percent Auto 0.6 % (0.2-1.2); Eosinophils Absolute Auto 0.3 K/mm3 (0-0.3); Eosinophils Percent Auto 4.3 % (0-4.4); Hematocrit 45.5 % (37.0-47.0); Hemoglobin 14.9 g/dL (12.0-15.0); Immature Granulocyte Absolute 0.01 K/mm3 (0.00-0.031); Immature Granulocyte Percent A 0.1 % (0-0.5); Lymphocytes Absolute Auto 2.08 K/mm3 (0.9-3.2); Lymphocytes Percent Auto 29.8 % (18.3-44.2); Mean Corpuscular HGB Conc 32.7 g/dl (32-36); Mean Corpuscular Volume 97.6 fl (80-100); Mean Platelet Volume 10.2 fl (7.4-10.4); Monocytes Absolute Auto 0.5 K/mm3 (0.1-0.6); Monocytes Percent Auto 6.7 % (2.6-8.5); Neutrophils Absolute Auto 4.1 K/mm3 (1.3-6.7); Neutrophils Percent Auto 58.5 % (45.5-73.1); Platelet Count Result 259 k/mm3 (150-375); Red Blood Count 4.66 M/mm3 (4.2-5.4); Red Cell Distribution Width 12.9 % (11.5-14.5)
[2023-04-07 15:19] LABS: Alanine Aminotransferase 28 U/L (6-35); Albumin Level 4.5 g/dL (3.5-5.1); Alkaline Phosphatase 100 U/L (38-126); Anion Gap 9 mmol/L (8-16); Aspartate Amino Transferase 30 U/L (14-36); Bilirubin,Total 0.4 mg/dL (0.2-1.3); Blood Urea Nitrogen 17 mg/dL (7-17); CRP < 0.5 mg/dL (<1.0); Calcium 9.5 mg/dL (8.4-10.2); Carbon Dioxide 30 mmol/L (22-30); Chloride 102 mmol/L (98-107); Creatine Kinase 188 U/L (30-135); Estimated Glomerular Filt Rate > 60; Glucose 116 mg/dL (65-110); Magnesium 2.1 mg/dL (1.6-2.3); Potassium 3.8 mmol/L (3.4-5.0); Sodium 141 mmol/L (137-145)
[2023-04-07 15:58] LABS: Erythrocyte Sedimentation Rate 10 mm/hr (0-20)
[2023-04-07 16:21] LABS: Folic Acid 15.6 ng/mL (2.76->20)
[2023-04-07 16:48] LABS: Vitamin D 25 Hydroxy 20.4 ng/mL
== END 2023-04-07 14:03 | disposition home or self-care (01) ==
PROVIDERS: PCP Family Medicine
DX: U09.9 Post COVID-19 condition, unspecified (principal)
CPT/HCPCS: 36415; 80048; 80076; 82306; 82550; 82607; 82746; 83735; 84443; 85025; 85652; 86140

== ENCOUNTER 2023-06-01 12:32 | Outpatient (CLI) | payer OTHER, SELFPAY ==
--- NOTE | ~2023-06-01 | XR_ITS ---
EXAM: [id number] DATE: 06/01/2023 14:09 HISTORY: M79.672 - Pain in left foot, PLANTAR CALCANEUS PAIN, NO INJ . COMPARISON: None available. FINDINGS: Normal mineralization. No fracture or dislocation. No lytic or blastic lesion. Plantar and Achilles enthesopathy Joint spaces and physes are maintained. No erosion or periosteal change. Soft tissues within normal limits. IMPRESSION: Plantar and Achilles enthesopathy. Reviewed, dictated and finalized at location K.
== END 2023-06-01 12:33 | disposition home or self-care (01) ==
PROVIDERS: PCP Family Medicine; Visit Provider Nurse Practitioner Family
DX: M79.672 Pain in left foot (principal); M77.8 Other enthesopathies, not elsewhere classified
CPT/HCPCS: 73630

== ENCOUNTER 2023-09-16 11:44 | Outpatient (CLI) | payer OTHER, SELFPAY ==
--- NOTE | ~2023-09-16 | US_ITS ---
EXAMINATION: US transvaginal DATE: 09/16/2023 12:11 INDICATION: Pelvic and perineal pain TECHNIQUE: Multiple endovaginal sonographic images of the pelvis were obtained. COMPARISON: 03/28/2022 FINDINGS: The uterus measures 4.8 x 2.8 x 4.2 cm. There is a 9 mm intramural fibroid of the uterine f undus. The endometrial complex measures 3 mm. The right ovary is not visualized however no right adne xal abnormality is seen. The left ovary is surgically absent. There is no free fluid in the pelvis. IMPRESSION: 1. No sonographic correlate for the patient's symptoms. Reviewed, dictated and finalized at location B. PRINTER
== END 2023-09-16 11:45 ==
PROVIDERS: PCP Nurse Practitioner; Visit Provider Nurse Practitioner
DX: R10.2 Pelvic and perineal pain (principal)
CPT/HCPCS: 76830

== ENCOUNTER 2023-12-06 13:00 | Emergency (ER) | payer OTHER, SELFPAY ==
[2023-12-06 13:09] VITALS: BP 161/96; PULSE 60; RESP 16; TEMP 37; O2SAT 97
--- NOTE | 2023-12-06 13:28 | ED.EAR ---
HPI - Ear Problem General Chief complaint: Ear Stated complaint: Ears Irritation Time Seen by Provider: 12/06/23 13:28 Source: patient Mode of arrival: ambulatory Limitations: no limitations History of Present Illness HPI Narrative: 48-year-old female presented for c/o sinus congestion and drainage, bilateral ear pressure, left ear pain and drainage over the past 5 days. She took a dose of antihistamine. Denies tinnitus, decreased hearing, dizziness, nausea, vomiting, fevers or chills. MD Complaint: ear pain Related Data Home Medications Medication Instructions Recorded Confirmed red beet root 250 mg-sour orta 1 tablet PO DAILY 10/12/23 12/06/23 extract 0.5 mg chewable tablet Allergies Allergy/AdvReac Type Severity Reaction Status Date / Time bupivacaine Allergy Unknown Hypotension Verified 12/06/23 13:01 BUPIVACAINE HCL AdvReac Intermediate HR DROP Uncoded 12/06/23 13:01 Review of Systems Review of Systems: CONSTITUTIONAL: Denies malaise, chills, or fever. EYES: Denies visual changes, redness, or discharge. ENT: Reports ear pain, rhinorrhea, congestion CARDIOVASCULAR: Denies chest pain, palpitations, or edema. RESPIRATORY: Denies cough or dyspnea. GASTROINTESTINAL: Denies abdominal pain, nausea, vomiting, diarrhea SKIN: Denies rash or itching. MUSCULOSKELETAL: Denies myalgia. NEUROLOGIC: Denies headache. All systems reviewed & are unremarkable except as noted in HPI and below PMFSH Past Medical History Medical History Adult BMI 32.0-32.9 kg/sq m BMI 31.0-31.9,adult BMI 33.0-33.9,adult BMI 34.0-34.9,adult COVID-19 Surgical History Surgical History Hx laparoscopic cholecystectomy 12/04/2009 at [facility] with Dr. houser Hx of section Hx of laparoscopy multiple for endometriosis Hx of tonsillectomy Family History Family History Mother Hypertension Depression Arthritis Father Patient's father is Family history of cardiovascular disease Acute myocardial infarction Sibling Family history of cardiovascular disease COPD (chronic obstructive pulmonary disease) Sibling Family history of [place] (myocardial infarction) COVID-19 Acute myocardial infarction Grandparent Family history of malignant neoplasm of breast Family history of cardiovascular disease Other Family history of heart disease in male family member before age 55 Family history of malignant neoplasm of breast in first degree relative Social History Social History Smoking status: Never smoker Second hand tobacco smoke exposure: Yes Alcohol intake: current Alcohol use details: occassionally Substance use: never Substance use type: does not use and marijuana Other substance usage details: uses edibles occassionally Do You Feel Safe in your Home?: Yes Lack of Transportation: No Lack of Food: Never True Current Housing: I Have Housing Concerned About Future Housing: No Difficulty Paying Gas/Electric Bills: No Difficulty Paying for Meds: No Currently Unemployed: No Education: High School Diploma/GED Difficulty w/ Childcare or Family Care: No Living arrangements: with family Occupation/Education: occupation 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 There is no relevant family history pertinent to the presenting complaint Exam Narrative: GENERAL: Well-appearing EYES: PERRLA, conjunctivae clear ENT: Nares clear. Mucous membranes moist. TMs pearly joshi with dull light reflex bilaterally, left with clear effusion; no tragal tenderness. no drooling, no hoarseness, no
== END 2023-12-06 13:40 | disposition home or self-care (01) ==
PROVIDERS: Emergency Provider Nurse Practitioner Family; PCP Family Medicine
DX: H65.02 Acute serous otitis media, left ear (principal); J06.9 Acute upper respiratory infection, unspecified; Z86.16 Personal history of COVID-19
CPT/HCPCS: 99213; G0463

== ENCOUNTER 2024-03-11 09:48 | Emergency (ER) | payer OTHER, SELFPAY ==
[2024-03-11 09:58] VITALS: BP 182/87; PULSE 99; RESP 18; TEMP 36.6; O2SAT 100
--- NOTE | 2024-03-11 11:00 | PC.NURSE ---
Patient called to be taken to room without answer in the waiting room at this time.
--- NOTE | 2024-03-11 12:05 | PC.NURSE ---
patient called without answer for second time from waiting room.
== END 2024-03-11 12:26 | disposition left against medical advice (07) ==
LOC: ANHED 12:14
PROVIDERS: PCP Family Medicine
DX: M25.552 Pain in left hip (principal); M25.551 Pain in right hip
CPT/HCPCS: 99199

== ENCOUNTER 2024-03-14 13:00 | Outpatient (CLI) | payer OTHER, SELFPAY ==
[2024-03-14 13:22] LABS: Basophils Absolute Auto 0.1 K/mm3 (0.0-0.1); Basophils Percent Auto 0.6 % (0.2-1.2); Eosinophils Absolute Auto 0.3 K/mm3 (0-0.3); Eosinophils Percent Auto 4.4 % (0-4.4); Hematocrit 45.7 % (37.0-47.0); Hemoglobin 14.9 g/dL (12.0-15.0); Immature Granulocyte Absolute 0.03 K/mm3 (0.00-0.031); Immature Granulocyte Percent A 0.4 % (0-0.5); Lymphocytes Absolute Auto 2.61 K/mm3 (0.9-3.2); Lymphocytes Percent Auto 33.7 % (18.3-44.2); Mean Corpuscular HGB Conc 32.6 g/dl (32-36); Mean Corpuscular Hemoglobin 31.8 pg (26-34); Mean Corpuscular Volume 97.4 fl (80-100); Mean Platelet Volume 9.8 fl (7.4-10.4); Monocytes Absolute Auto 0.6 K/mm3 (0.1-0.6); Monocytes Percent Auto 7.1 % (2.6-8.5); Neutrophils Absolute Auto 4.2 K/mm3 (1.3-6.7); Neutrophils Percent Auto 53.8 % (45.5-73.1); Platelet Count Result 288 k/mm3 (150-375); Red Blood Count 4.69 M/mm3 (4.2-5.4); Red Cell Distribution Width 12.9 % (11.5-14.5); White Blood Count 7.8 K/mm3 (4.5-10.0)
[2024-03-14 13:34] LABS: Alanine Aminotransferase 25 U/L (6-35); Albumin Level 4.6 g/dL (3.5-5.1); Alkaline Phosphatase 120 U/L (38-126); Anion Gap 9 mmol/L (4-12); Aspartate Amino Transferase 28 U/L (14-36); Bilirubin,Total 0.6 mg/dL (0.2-1.3); Blood Urea Nitrogen 16 mg/dL (7-17); Calcium 9.4 mg/dL (8.4-10.2); Carbon Dioxide 29 mmol/L (22-30); Chloride 100 mmol/L (98-107); Creatine Kinase 85 U/L (30-135); Estimated Glomerular Filt Rate > 60; Glucose 105 mg/dL (65-110); Sodium 138 mmol/L (137-145)
[2024-03-14 16:12] LABS: Erythrocyte Sedimentation Rate 9 mm/hr (0-20)
[2024-03-14 18:43] LABS: Vitamin D 25 Hydroxy 23.3 ng/mL
[2024-03-14 19:34] LABS: Iron 134 ug/dL (37-170)
[2024-03-14 19:47] LABS: Percent Iron Saturation 48 % (20-50)
== END 2024-03-14 13:01 | disposition home or self-care (01) ==
LOC: ANHLAB 13:02
PROVIDERS: PCP Family Medicine; Visit Provider Nurse Practitioner Family
DX: D64.9 Anemia, unspecified (principal); E53.8 Deficiency of other specified B group vitamins; I10 Essential (primary) hypertension; E55.9 Vitamin D deficiency, unspecified; M25.50 Pain in unspecified joint; D58.2 Other hemoglobinopathies; R79.89 Other specified abnormal findings of blood chemistry
CPT/HCPCS: 36415; 80053; 82306; 82550; 82607; 83540; 83550; 84443; 85025; 85652; 86038; 86039

== ENCOUNTER 2024-03-20 21:41 | Emergency (ER) | payer OTHER, SELFPAY ==
[2024-03-20 22:27] VITALS: BP 174/100; PULSE 74; RESP 20; TEMP 36.6; O2SAT 100
== END 2024-03-21 01:00 | disposition left against medical advice (07) ==
LOC: ANHED 03-21 00:56
PROVIDERS: PCP Family Medicine
DX: H57.89 Other specified disorders of eye and adnexa (principal)
CPT/HCPCS: 99199

== ENCOUNTER 2024-03-21 16:21 | Emergency (ER) | payer OTHER, SELFPAY ==
--- NOTE | 2024-03-21 16:25 | ED.URI ---
HPI - URI/Sore Throat General Chief Complaint: Upper Respiratory Infection Stated Complaint: Sinus Time Seen by Provider: 03/21/24 16:33 Source: patient and RN notes reviewed Mode of arrival: ambulatory Limitations: no limitations History of Present Illness HPI Narrative: 49-year-old female presents with concern for a day history of sinus congestion, pressure, sinus pain, ear pressure. Reports right sided watery eyes. She reports when symptoms initially started she had a fever. She has been taking Halle D without relief MD elicited complaint: sinus pain Related Data Home Medications Medication Instructions Recorded Confirmed red beet root 250 mg-sour orta 1 tablet PO DAILY 10/12/23 03/21/24 extract 0.5 mg chewable tablet Allergies Allergy/AdvReac Type Severity Reaction Status Date / Time bupivacaine Allergy Unknown Hypotension Verified 03/21/24 16:26 BUPIVACAINE HCL AdvReac Intermediate HR DROP Uncoded 03/21/24 16:26 Review of Systems Review of Systems: CONSTITUTIONAL: Denies malaise, chills, sweats, or fever. EYES: Denies visual changes, redness. Reports right eye watery discharge. ENT: Reports rhinorrhea, congestion, sinus pain, otalgia CARDIOVASCULAR: Denies chest pain, palpitations, or edema. RESPIRATORY: Denies cough. Denies dyspnea. GASTROINTESTINAL: Denies abdominal pain, nausea, vomiting, diarrhea SKIN: Denies rash or itching. MUSCULOSKELETAL: Denies myalgia. NEUROLOGIC: Denies headache. All systems reviewed & are unremarkable except as noted in HPI and below PMFSH Past Medical History Medical History (Updated 03/21/24 @ 16:43 by Alena May NP) Adult BMI 32.0-32.9 kg/sq m BMI 31.0-31.9,adult BMI 33.0-33.9,adult BMI 34.0-34.9,adult COVID-19 Pneumonia due to COVID-19 virus Sphincter of Oddi dysfunction Weakness Surgical History Surgical History Hx laparoscopic cholecystectomy 12/04/2009 at [facility] with Dr. houser Hx of section Hx of laparoscopy multiple for endometriosis Hx of tonsillectomy Family History Family History Mother Hypertension Depression Arthritis Father Patient's father is Family history of cardiovascular disease Acute myocardial infarction Sibling Family history of cardiovascular disease COPD (chronic obstructive pulmonary disease) Sibling Family history of [place] (myocardial infarction) COVID-19 Acute myocardial infarction Grandparent Family history of malignant neoplasm of breast Family history of cardiovascular disease Other Family history of heart disease in male family member before age 55 Family history of malignant neoplasm of breast in first degree relative Social History Social History Smoking status: Never smoker Second hand tobacco smoke exposure: Yes Alcohol intake: current Alcohol use details: occassionally Substance use: never Substance use type: does not use and marijuana Other substance usage details: uses edibles occassionally Do You Feel Safe in your Home?: Yes Lack of Transportation: No Lack of Food: Never True Current Housing: I Have Housing Concerned About Future Housing: No Difficulty Paying Gas/Electric Bills: No Difficulty Paying for Meds: No Currently Unemployed: No Education: High School Diploma/GED Difficulty w/ Childcare or Family Care: No Living arrangements: with family 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 There is no relevant family history pertinent to the presenting complaint Exam Narrative: GENERAL: Well-appearing, well-nourished, and in no acute dist
[2024-03-21 16:28] VITALS: BP 196/102; PULSE 72; RESP 20; TEMP 36.9; O2SAT 100
[2024-03-21 16:33] VITALS: BP 186/91
--- NOTE | 2024-03-21 16:34 | PC.NURSE ---
pt has high blood pressure upon arrival, pt stated she took her medicine but also has been taking Alegra D.
== END 2024-03-21 16:50 | disposition home or self-care (01) ==
PROVIDERS: Emergency Provider Nurse Practitioner; PCP Nurse Practitioner Family
DX: J01.90 Acute sinusitis, unspecified (principal); F12.90 Cannabis use, unspecified, uncomplicated; Z86.16 Personal history of COVID-19
CPT/HCPCS: 99213; G0463

== ENCOUNTER 2024-03-29 18:21 | Emergency (ER) | payer OTHER, SELFPAY ==
[2024-03-29 18:30] VITALS: BP 143/108; PULSE 99; RESP 16; TEMP 36.3; O2SAT 98
--- NOTE | 2024-03-29 21:03 | PC.NURSE ---
Pt and family came up to desk stating they are leaving. Pt left in NAD @ 2100.
== END 2024-03-29 21:00 | disposition left against medical advice (07) ==
PROVIDERS: PCP Family Medicine
DX: M25.50 Pain in unspecified joint (principal)
CPT/HCPCS: 99199

== ENCOUNTER 2024-03-31 09:46 | Emergency (ER) | payer OTHER, SELFPAY ==
--- NOTE | ~2024-03-31 | XR_ITS ---
EXAMINATION: XR chest 2V DATE: 03/31/2024 10:48 INDICATION: Weakness and dizziness. TECHNIQUE: Frontal and lateral views of the chest were obtained. COMPARISON: Chest 2 views 04/05/2022 FINDINGS: There is no pneumonia, pleural effusion, or pneumothorax. The heart size is normal. Surgica l clips in the right upper quadrant are likely from cholecystectomy. There is mild chronic anterior w edging of multiple thoracic vertebral bodies. IMPRESSION: 1. No acute cardiopulmonary disease. Reviewed, dictated and finalized at location A.
[2024-03-31 09:50] VITALS: BP 160/79; PULSE 91; RESP 17; TEMP 36.7; O2SAT 100
[2024-03-31 11:00] VITALS: BP 121/80; PULSE 79; RESP 16; O2SAT 100
[2024-03-31] MEDS: SODIUM CHLORIDE 0.9% IV 1,000 ML 999 ML IV CONT (11:00)
[2024-03-31 11:15] LABS: BEDSIDEPREGUCG Negative
[2024-03-31 11:16] LABS: Basophils Absolute Auto 0.1 K/mm3 (0.0-0.1); Basophils Percent Auto 0.6 % (0.2-1.2); Eosinophils Absolute Auto 0.2 K/mm3 (0-0.3); Eosinophils Percent Auto 2.7 % (0-4.4); Hematocrit 45.9 % (37.0-47.0); Hemoglobin 15.5 g/dL (12.0-15.0); Immature Granulocyte Absolute 0.01 K/mm3 (0.00-0.031); Immature Granulocyte Percent A 0.1 % (0-0.5); Lymphocytes Absolute Auto 2.79 K/mm3 (0.9-3.2); Lymphocytes Percent Auto 32.4 % (18.3-44.2); Mean Corpuscular HGB Conc 33.8 g/dl (32-36); Mean Corpuscular Hemoglobin 32.2 pg (26-34); Mean Corpuscular Volume 95.4 fl (80-100); Mean Platelet Volume 9.9 fl (7.4-10.4); Monocytes Absolute Auto 0.8 K/mm3 (0.1-0.6); Monocytes Percent Auto 9.6 % (2.6-8.5); Neutrophils Absolute Auto 4.7 K/mm3 (1.3-6.7); Neutrophils Percent Auto 54.6 % (45.5-73.1); Platelet Count Result 302 k/mm3 (150-375); Red Blood Count 4.81 M/mm3 (4.2-5.4); Red Cell Distribution Width 12.6 % (11.5-14.5); White Blood Count 8.6 K/mm3 (4.5-10.0)
[2024-03-31 11:17] LABS: Add Urine Microscopic? NO; Appearance Urine Clear (Clear); Bilirubin Urine Negative (Negative); Blood Urine Negative (Negative); Color Urine Yellow (Yellow); Glucose Urine UA Negative (Negative); Ketones Urine Negative (Negative); Leukocyte Esterase Ur Negative LEU/UL (Negative); Nitrate Urine Negative (Negative); Protein Urine Negative (Negative); Specific Grav Ur 1.008 (1.001-1.035); Urobilinogen Urine 0.2 mg/dL (<2.0)
[2024-03-31 11:26] LABS: Alanine Aminotransferase 32 U/L (6-35); Albumin Level 4.5 g/dL (3.5-5.1); Alkaline Phosphatase 119 U/L (38-126); Anion Gap 9 mmol/L (4-12); Aspartate Amino Transferase 32 U/L (14-36); Bilirubin,Total 0.9 mg/dL (0.2-1.3); Blood Urea Nitrogen 18 mg/dL (7-17); Calcium 9.9 mg/dL (8.4-10.2); Carbon Dioxide 30 mmol/L (22-30); Chloride 95 mmol/L (98-107); Estimated CRCL calculation 93 ml/min; Estimated Glomerular Filt Rate > 60; Glucose 104 mg/dL (65-110); Magnesium 2.1 mg/dL (1.6-2.3); Potassium 3.5 mmol/L (3.4-5.0); Sodium 134 mmol/L (137-145)
[2024-03-31 11:52] LABS: Influenza A QL RT-PCR Negative (Negative); Influenza B QL RT-PCR Negative (Negative); RSV RNA, RT-PCR Negative (Negative); SARS-CoV-2 RNA PCR Negative (Negative)
[2024-03-31 12:00] VITALS: BP 123/70; PULSE 79; RESP 16; O2SAT 100
--- NOTE | 2024-03-31 12:14 | ED.GENADULT ---
HPI - General Adult General Chief complaint: Unspecified Stated complaint: joint pain/shakey Time Seen by Provider: 03/31/24 09:55 History of Present Illness HPI narrative: Patient is a 49-year-old female who presents ER with multiple issues. Three weeks ago she was bit by a horse fly and since then has been feeling off. Today she felt weak and shaky. She called her PCP and he cannot see her until next week. She was seen recently in urgent care and diagnosed with sinusitis. She has also been seen by her PCP for issues including joint pain and swelling. She reports she still has some achiness. No redness or swelling of her joints at this time. After being bit she had a splotchy red rash that went up her left leg however that has since resolved. She has no fevers or chills or sweats. No difficulty breathing or swallowing. No recent tick bite. Related Data Home Medications Medication Instructions Recorded Confirmed red beet root 250 mg-sour rota 1 tablet PO DAILY 10/12/23 03/21/24 extract 0.5 mg chewable tablet Allergies Allergy/AdvReac Type Severity Reaction Status Date / Time bupivacaine Allergy Unknown Hypotension Verified 03/22/24 07:38 morphine AdvReac Vomiting Verified 03/31/24 09:53 BUPIVACAINE HCL AdvReac Intermediate HR DROP Uncoded 03/22/24 07:38 Review of Systems Review of Systems: All systems reviewed & are unremarkable except as noted in HPI and below Constitutional: Constitutional: Reports no additional constitutional complaints ENT: Reports system reviewed and no additional complaints, except as documented Cardiovascular: Cardiovascular: Reports no additional cardiovascular complaints Respiratory: Respiratory: Reports no additional respiratory complaints Musculoskeletal: Musculoskeletal: Reports arthralgias, Denies joint swelling, Denies muscle weakness and Denies numbness Integumentary/Breasts: Skin/Breast: Reports system reviewed and no additional complaints, except as docu [facility] Past Medical History Medical History (Updated 03/31/24 @ 12:15 by Lev Donnelly MD) COVID-19 Pneumonia due to COVID-19 virus Sphincter of Oddi dysfunction Weakness Surgical History Surgical History Hx laparoscopic cholecystectomy 12/04/[address] [facility] [address] houser Hx of section Hx of laparoscopy multiple for endometriosis Hx of tonsillectomy Family History Family History Mother Hypertension Depression Arthritis Father Patient's father is Family history of cardiovascular disease Acute myocardial infarction Sibling Family history of cardiovascular disease COPD (chronic obstructive pulmonary disease) Sibling Family history of [place] (myocardial infarction) COVID-19 Acute myocardial infarction Grandparent Family history of malignant neoplasm of breast Family history of cardiovascular disease Other Family history of heart disease in male family member before age 55 Family history of malignant neoplasm of breast in first degree relative Social History Social History Smoking status: Never smoker Second hand tobacco smoke exposure: Yes Alcohol intake: current Alcohol use details: occassionally Substance use: never Substance use type: does not use and marijuana Other substance usage details: uses edibles occassionally Do You Feel Safe in your Home?: Yes Lack of Transportation: No Lack of Food: Never True Current Housing: I Have Housing Concerned About Future Housing: No Difficulty Paying Gas/Electric Bills: No Difficulty Paying for Meds: No Currently Unemployed: No Education: High School Diploma/GED Difficulty w/ Childcare or Family Care: No Living arrangements: with family Occupation/Education: occupation 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
[2024-03-31 12:28] VITALS: BP 114/71; PULSE 75; RESP 16; TEMP 36.6; O2SAT 100
== END 2024-03-31 12:32 | disposition home or self-care (01) ==
PROVIDERS: Emergency Provider Emergency Medicine; PCP Family Medicine
DX: R53.1 Weakness (principal); Z20.822 Contact with and (suspected) exposure to COVID-19; I10 Essential (primary) hypertension; K83.4 Spasm of sphincter of Oddi; Z87.01 Personal history of pneumonia (recurrent); Z86.16 Personal history of COVID-19; Z90.49 Acquired absence of other specified parts of digestive tract; Z77.22 Contact with and (suspected) exposure to environmental tobacco smoke (acute) (chronic); Z79.899 Other long term (current) drug therapy
CPT/HCPCS: 36415; 71046; 80053; 81003; 81025; 83735; 85025; 87637; 96360; 99283; J7030

== ENCOUNTER 2024-04-07 09:48 | Emergency (ER) | payer OTHER, SELFPAY ==
[2024-04-07] VITALS (14 sets, daily range): BP systolic 105–179; BP diastolic 54–92; PULSE 92–135; RESP 15–24; TEMP 36.4–36.6; O2SAT 94–100
--- NOTE | ~2024-04-07 | CT_ITS ---
EXAMINATION: CT brain wo con DATE: 04/07/2024 11:44 INDICATION: Headache and paresthesias TECHNIQUE: Computed tomography (CT) of the head was performed without intravenous contrast. Sagittal and coronal reconstructions were performed. The mA was adjusted according to patient size. Iterative reconstruction technique was employed. The dose-length product was 605.33 mGy-cm. COMPARISON: head CT dated 11/20/11 FINDINGS: No acute intracranial hemorrhage, acute infarction or abnormal extra axial fluid collection. Ventricl es are normal and symmetric. No mass/mass effect. The orbits, paranasal sinuses and mastoid air cells are normal. IMPRESSION: 1. Normal head CT. Reviewed, dictated and finalized at location A. IMPRESSION: 1. Normal head CT.
--- NOTE | 2024-04-07 10:37 | ECG_ITS ---
Test Date: 2024-04-07 10:42:37 Measurements Intervals [place] Rate: 131 P: 46 RI: 155 QRS: -6 QRSD: 86 T: 28 QT: 305 QTc: 451 Interpretive Statements SINUS TACHYCARDIA ABNORMAL RHYTHM ECG No previous ECG available for comparison Electronically Signed On 04-07-2024 13:26:35 CDT by Júnior Quezada M.D.
--- NOTE | 2024-04-07 11:02 | ED.HA ---
HPI - Headache General Chief Complaint: Headache Stated Complaint: twitching, lightheaded, headache Time Seen by Provider: 04/07/24 10:19 Source: patient Mode of arrival: ambulatory Limitations: no limitations History of Present Illness HPI Narrative: This is a 49 year old female that presents to the ER for headache. Reports ongoing over the last couple of weeks. She has had episodes where she feels shaky, had flashes of light in her vision, and then gets a headache. Today she also had associated paresthesias in her arms and felt like her tongue was heavy. Her symptoms have now largely resolved, she does feel a little anxious. Denies fever, chest pain, shortness of breath, vomiting, focal numbness or weakness. Related Data Home Medications Medication Instructions Recorded Confirmed red beet root 250 mg-sour orta 1 tablet PO DAILY 10/12/23 03/21/24 extract 0.5 mg chewable tablet Allergies Allergy/AdvReac Type Severity Reaction Status Date / Time bupivacaine Allergy Unknown Hypotension Verified 03/22/24 07:38 morphine AdvReac Vomiting Verified 03/31/24 09:53 BUPIVACAINE HCL AdvReac Intermediate HR DROP Uncoded 03/22/24 07:38 Review of Systems Review of Systems: CONSTITUTIONAL: Denies fever EYES: Reports visual changes CARDIOVASCULAR: Denies chest pain RESPIRATORY: Denies dyspnea. GASTROINTESTINAL: Denies vomiting NEUROLOGIC: Reports headache. Denies numbness, or weakness. All systems reviewed & are unremarkable except as noted in HPI and below PMFSH Past Medical History Medical History (Updated 04/07/24 @ 13:16 by Cordelia Storey PA-C) COVID-19 Pneumonia due to COVID-19 virus Sphincter of Oddi dysfunction Weakness Surgical History Surgical History Hx laparoscopic cholecystectomy 12/04/2009 at [facility] with Dr. houser Hx of section Hx of laparoscopy multiple for endometriosis Hx of tonsillectomy Family History Family History Mother Hypertension Depression Arthritis Father Patient's father is Family history of cardiovascular disease Acute myocardial infarction Sibling Family history of cardiovascular disease COPD (chronic obstructive pulmonary disease) Sibling Family history of [place] (myocardial infarction) COVID-19 Acute myocardial infarction Grandparent Family history of malignant neoplasm of breast Family history of cardiovascular disease Other Family history of heart disease in male family member before age 55 Family history of malignant neoplasm of breast in first degree relative Social History Social History Smoking status: Never smoker Second hand tobacco smoke exposure: Yes Alcohol intake: current Alcohol use details: occassionally Substance use: never Substance use type: does not use and marijuana Other substance usage details: uses edibles occassionally Do You Feel Safe in your Home?: Yes Lack of Transportation: No Lack of Food: Never True Current Housing: I Have Housing Concerned About Future Housing: No Difficulty Paying Gas/Electric Bills: No Difficulty Paying for Meds: No Currently Unemployed: No Education: High School Diploma/GED Difficulty w/ Childcare or Family Care: No Living arrangements: with family Occupation/Education: occupation 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 HEAD: Normocephalic, atraumatic. EYES: PERRLA and EOMI. ENT: Nares clear, no rhinorrhea or epistaxis. Mucous membranes moist. Oropharynx without tonsillar hypertrophy exudate or other lesions. Bilateral TMs pearly joshi non-bulging NECK: Supple. No adenopathy or masses. No JVD CHEST: Clear to ausc
[2024-04-07] MEDS: SODIUM CHLORIDE 0.9% IV 1,000 ML 999 ML IV CONT (11:20)
[2024-04-07 11:28] LABS: Basophils Absolute Auto 0.1 K/mm3 (0.0-0.1); Basophils Percent Auto 0.6 % (0.2-1.2); Eosinophils Absolute Auto 0.2 K/mm3 (0-0.3); Eosinophils Percent Auto 1.4 % (0-4.4); Hematocrit 44.4 % (37.0-47.0); Hemoglobin 15.4 g/dL (12.0-15.0); Immature Granulocyte Absolute 0.03 K/mm3 (0.00-0.031); Immature Granulocyte Percent A 0.3 % (0-0.5); Lymphocytes Absolute Auto 2.11 K/mm3 (0.9-3.2); Lymphocytes Percent Auto 19.9 % (18.3-44.2); Mean Corpuscular HGB Conc 34.7 g/dl (32-36); Mean Corpuscular Volume 92.3 fl (80-100); Mean Platelet Volume 9.9 fl (7.4-10.4); Neutrophils Absolute Auto 7.3 K/mm3 (1.3-6.7); Neutrophils Percent Auto 68.8 % (45.5-73.1); Platelet Count Result 309 k/mm3 (150-375); Red Blood Count 4.81 M/mm3 (4.2-5.4); Red Cell Distribution Width 12.1 % (11.5-14.5); White Blood Count 10.6 K/mm3 (4.5-10.0)
[2024-04-07 11:29] LABS: Add Urine Microscopic? NO; Appearance Urine Clear (Clear); Bilirubin Urine Negative (Negative); Blood Urine Negative (Negative); Color Urine Yellow (Yellow); Glucose Urine UA Negative (Negative); Ketones Urine Negative (Negative); Leukocyte Esterase Ur Negative LEU/UL (Negative); Nitrate Urine Negative (Negative); Protein Urine Negative (Negative); Specific Grav Ur 1.012 (1.001-1.035); Urobilinogen Urine 0.2 mg/dL (<2.0)
[2024-04-07 11:46] LABS: Alanine Aminotransferase 27 U/L (6-35); Albumin Level 4.6 g/dL (3.5-5.1); Alkaline Phosphatase 129 U/L (38-126); Anion Gap 15 mmol/L (4-12); Aspartate Amino Transferase 31 U/L (14-36); Bilirubin,Total 0.6 mg/dL (0.2-1.3); Blood Urea Nitrogen 17 mg/dL (7-17); Calcium 10.1 mg/dL (8.4-10.2); Carbon Dioxide 25 mmol/L (22-30); Chloride 95 mmol/L (98-107); Estimated CRCL calculation 94 ml/min; Estimated Glomerular Filt Rate > 60; Glucose 124 mg/dL (65-110); Potassium 3.4 mmol/L (3.4-5.0); Sodium 135 mmol/L (137-145)
[2024-04-07 11:48] LABS: Amphetamine Screen Urine Negative (Negative); Barbiturate Screen Urine Negative (Negative); Benzodiazepines Screen Urine Negative (Negative); Cannabinoid Screen Urine Negative (Negative); Cocaine Screen Urine Negative (Negative); Methadone Screen Urine Negative (Negative); Opiate Screen Urine Negative (Negative); Phencyclidine Screen Urine Negative (Negative)
[2024-04-07 12:56] LABS: Folic Acid 9.3 ng/mL (2.76->20)
== END 2024-04-07 14:01 | disposition home or self-care (01) ==
PROVIDERS: Emergency Provider Physician Assistant; PCP Family Medicine
DX: R51.9 Headache, unspecified (principal); K83.09 Other cholangitis; Z86.16 Personal history of COVID-19; Z87.01 Personal history of pneumonia (recurrent); Z90.49 Acquired absence of other specified parts of digestive tract; Z77.22 Contact with and (suspected) exposure to environmental tobacco smoke (acute) (chronic); R00.0 Tachycardia, unspecified
CPT/HCPCS: 36415; 70450; 80053; 80307; 81003; 82607; 82746; 83735; 84443; 85025; 93005; 96360; 99284; J7030

== ENCOUNTER 2024-10-04 07:23 | Outpatient (CLI) | payer MEDICARE, OTHER, SELFPAY ==
--- OUTSIDE RECORDS SUMMARY | 2024-10-04 07:29 | XMS_ITS | Referral Summary ---
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 07/15/2022 COVID-19 long hauler manifes ting chronic concentration deficit 07/15/2022 COVID-19 long hauler manifesting chronic fatigue 07/15/2022 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 Anxiety 07/15/2022 Hypertension 07/15/2022 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 07/15/2022 Immunizations Immunization Administration Dates Next Due Pfizer SARS-CoV-2 Monovalent Vaccination (12+ Yrs) PURPLE 03/27/2022,03/05/2022 Social History Tobacco Use Types Packs/Day Years Used Date Smoking Tobacco: Never Assessed Comments Unknown Sex and Gender Information Value Date Recorded Sex Assigned at Not on file Legal Sex Female 8:30 AM CDT Gender Identity Not on file Sexual Orientation Not on file Last Filed Vital Signs Vital Sign Reading Time Taken Comments Blood Pressure 169/97 04/27/2023 9:35 AM CDT Pulse 80 04/27/2023 9:35 AM CDT Temperature 36.7 C (98 F) 04/27/2023 9:35 AM CDT Respiratory Rate 18 04/27/2023 9:35 AM CDT Oxygen Saturation - - Inhaled Oxygen Concentration - - Weight 91.5 kg (201 lb 11.2 oz) 04/27/2023 9:35 AM CDT Height 165.1 cm (5' 5) 04/27/2023 9:35 AM CDT Body Mass Index 33.56 04/27/2023 9:35 AM CDT Plan of Treatment Not on file Insurance [facility] CHOICE PLUS [facility] HMO/PPO Address: [address] [address] [place] [address] Care Teams Air Support Control Officer Relationship Specialty Start Date End Date Sharmaine Dukes PA PCP - General Physician Web Design Specialist 04/05/21 Radha Carney [facility] [address] [facility] [address] Cutting Machine Tender Helper Infectious Diseases 07/14/22
--- OUTSIDE RECORDS SUMMARY | 2024-10-04 07:29 | XMS_ITS | Clinical Summary ---
Author Organization [facility] Address [address] [place] [address] Care Team Providers Care Flight Data Technician Name Role Phone Unavailable Primary Care Provider Unavailabl e Source Comments [facility],non-owned Affiliates and Associated Physician Practices is amultiple site organization consisting of ambulatory clinics and hospital sitesin [place], [place], [place] and [place]. This disclosure is being madepursuant to the Care Everywhere program and may not contain all information available regarding this patient. Last updated 18.[facility] Espressi Social History Tobacco Use Types Packs/Day Years Used Date Smoking Tobacco: Never Alcohol Use Standard Drinks/Week Comments No 0 (1 standard drink = 0.6 oz pur e alcohol) Sex and Gender Information Value Date Recorded Sex Assigned at Not on file Gender Identity Not on file Sexual Orientation Not on file Last Filed Vital Signs Vital Sign Reading Time Taken Comments Blood Pressure 154/99 06/13/2013 5:49 PM TIMBER GIRDLER Pulse 84 06/13/2013 5:49 PM TIMBER GIRDLER Temperature 36.8 C (98.3 F) 06/13/2013 5:49 PM TIMBER GIRDLER Respiratory Rate 16 06/13/2013 5:49 PM TIMBER GIRDLER Oxygen Saturation 99% 06/13/2013 5:49 PM TIMBER GIRDLER Inhaled Oxygen Concentration - - Weight 81.6 kg (180 lb) 06/13/2013 5:49 PM TIMBER GIRDLER Height 165.1 cm (5' 5) 06/13/2013 5:49 PM TIMBER GIRDLER Body Mass Index 29.95 06/13/2013 5:49 PM TIMBER GIRDLER Plan of Treatment Health Maintenance Due Date Last Done Comments COLOGUARD (AGES 45-75) - COL ON CA SCREENING 1977 COLON MONITORING 1977 COLONOSCOPY - COLON CA SCREENING 1977 CT COLONOGRAPHY - COLON CA SCREENING 1977 Colorectal Cancer Screening 1977 FIT - COLON CA SCREENING 1977 FLEX SIG - COLON CA SCREENING 1977 LIPID TESTING 1977 MAMMOGRAM 1977 PAP SMEAR 1977 HIV SCREENING 01/18/1992 HEPATITIS C SCREENING 01/13/1995 DTAP/TDAP/TD VACCINES (1 - Tdap) 01/18/1996 HEPATITIS B VACCINE (1 of 3 - 19+ 3-dose series) 01/18/1996 COVID-19 VACCINE (1 2023-2 5 season) 2024 INFLUENZA VACCINE (#1) 2024 DEPRESSION SCREENING 08/10/2024 ZOSTER VACCINE (1 of 2) 2027 HIB VACCINE Aged Out No longer eligi ble based on patient's age to complete this topic HPV VACCINE Aged Out No longer eligi ble based on patient's age to complete this topic MENINGOCOCCAL (Group B) VACCINE Aged Out No longer eligible based on patient's age to complete this topic MENINGOCOCCAL VACCINE Aged Out No camelia kasandra eligible based on patient's age to complete this topic PNEUMOCOCCAL VACCINE Aged Out No long er eligible based on patient's age to complete this topic
--- OUTSIDE RECORDS SUMMARY | 2024-10-04 07:29 | XMS_ITS | Clinical Summary ---
Author Organization [facility] Address [address] [place] [address] Care Team Providers Care Carton Wrapper Name Role Phone Sree Leonardo MD Primary Care Provider [phone] Allergies No known active allergies Medications halobetasol 0.05 % cream Apply 1 each topically daily. 1 Active ondansetron (ZOFRAN-ODT) 4 MG disintegrating tablet Take 1 tablet (4 mg total) by mouth every 8 (eight) hours as needed. 20 tablet 4 Active Active Problems Problem Noted Date Diagnosed Date Acute respiratory failure ([facility]) 02/2021 Pneumonia due to COVID-19 virus 03/12/2021 COVID-19 03/11/2021 Family History Medical History Relation Comments Heart Disease Father Heart Disease Paternal Grandfather Relation Status Comments Father Paternal Grandfather Social History Tobacco Use Types Packs/Day Years Used Date Smoking Tobacco: Never Smokeless Tobacco: Never Alcohol Use Standard Drinks/Week Comments Never 0 (1 standard drink = 0.6 oz pur e alcohol) AUDIT-C Answer Date Recorded Q1: How often do you have a drink containing alc ohol? Never 03/11/2021 Average Number of Drinks Not on file 021 Frequency of Binge Drinking Not on file 09/2020 Comments No Sex and Gender Information Value Date Recorded Sex Assigned at Not on file Legal Sex Female 10:42 AM CDT Gender Identity Not on file Sexual Orientation Not on file Last Filed Vital Signs Vital Sign Reading Time Taken Comments Blood Pressure 163/91 08/17/2023 12:15 PM CREDIT RISK ANALYST Pulse 116 08/17/2023 12:15 PM CREDIT RISK ANALYST Temperature 37.5 C (99.5 F) 08/17/2023 12:15 PM CREDIT RISK ANALYST Respiratory Rate 18 08/17/2023 12:15 PM CREDIT RISK ANALYST Oxygen Saturation 97% 08/17/2023 12:15 PM CREDIT RISK ANALYST Inhaled Oxygen Concentration - - Weight 88.5 kg (195 lb) 08/17/2023 12:15 PM CREDIT RISK ANALYST Height 165.1 cm (5' 5) 08/17/2023 12:15 PM CREDIT RISK ANALYST Body Mass Index 32.45 08/17/2023 12:15 PM CREDIT RISK ANALYST Plan of Treatment Health Maintenance Due Date Last Done Comments Cervical Cancer Screening Pa p Smear (Age 30 to 64) Every 3 Years 1977 Colorectal Cancer Screening Colonoscopy (10 Years) 1977 Annual Physical 01/18/1980 Hepatitis C 1995 DTaP, Tdap and Td Vaccines ( 1 - Tdap) 01/18/1996 Hepatitis B Vaccines (1 of 3 - 19+ 3-dose series) 01/18/1996 Cervical Cancer Screening Pa p with HPV Testing (Age 30 to 64) Every 5 Years 2007 Cervical Cancer Screening wi th HPV 2007 Mammogram Screening 2017 COVID-19 Vaccine (3 - 2023-2 5 season) 2024 03/27/2022, 03/05/2022 Influenza Adult (#1) 2024 Meningococcal B Vaccine Aged Out No l onger eligible based on patient's age to complete this topic Meningococcal Vaccine Aged Out No camelia kasandra eligible based on patient's age to complete this topic Pneumococcal Vaccine: Pediatrics (0 to 5 Years) and At-Risk Patients (6 to 64 Years) Aged Out No longer eligible b ased on patient's age to complete this topic RSV Immunizations Under 20 Months Aged Out No longer eligible b ased on patient's age to complete this topic Goals Goal Patient Goal Type Associated Problems Recent Progress Patient-Stated? Author Family - family caregiver with be involved in care transitions and discharge planning General No Yasmeen Barba, GUNITE MIXERanimal cop Advance Directives * Full Code (Latest Code Status on File) Date Activated Date Inactivated Comments 03/16/2021 4:16 AM 03/31/2021 3:34 PM * Full Code Date Activated Date Inactivated Comments 03/11/2021 2:32 PM 03/15/2021 9:09 PM Care Teams Carton Wrapper Relationship Specialty Start Date End Date Sree Leonardo MD [address] [place], [place] [id number] PCP - General FAMILY PRACTICE 08/17/23
--- OUTSIDE RECORDS SUMMARY | 2024-10-04 07:29 | XMS_ITS | Patient Health Summary ---
Author Organization [facility] Address [address] [place] [address] Care Team Providers Care Training Development Director Name Role Phone Unavailable Primary Care Provider Unavailabl e Note from [facility],non-owned Affiliates and Associated Physician Practices is amultiple site organization consisting of ambulatory clinics and hospital sitesin [place], [place], [place] and [place]. This disclosure is being madepursuant to the Care Everywhere program and may not contain all information available regarding this patient. Last updated 18.[facility] Social History Tobacco Use Types Packs/Day Years [...] Comments Blood Pressure 154/99 06/13/2013 5:49 PM CARDIAC/VASCULAR SONOGRAPHER Pulse 84 06/13/2013 5:49 PM CARDIAC/VASCULAR SONOGRAPHER Temperature 36.8 C (98.3 F) 06/13/2013 5:49 PM CARDIAC/VASCULAR SONOGRAPHER Respiratory Rate 16 06/13/2013 5:49 PM CARDIAC/VASCULAR SONOGRAPHER Oxygen Saturation 99% 06/13/2013 5:49 PM CARDIAC/VASCULAR SONOGRAPHER Inhaled Oxygen Concentration - - Weight 81.6 kg (180 lb) 06/13/2013 5:49 PM CARDIAC/VASCULAR SONOGRAPHER Height 165.1 cm (5' 5) 06/13/2013 5:49 PM CARDIAC/VASCULAR SONOGRAPHER Body Mass Index 29.95 06/13/2013 5:49 PM CARDIAC/VASCULAR SONOGRAPHER
--- OUTSIDE RECORDS SUMMARY | 2024-10-04 07:29 | XMS_ITS | Clinical Summary ---
Author Organization [facility] Office Center Address [address] [place] [address] Care Team Providers Care Asp Net Mvc Developer Name Role Phone Sharmaine Dukes Primary Care [...] on file Sexual Orientation Not on file Obstetrics History Last Filed Vital Signs Vital Sign Reading [...] 04/27/2023 9:35 AM CDT Plan of Treatment Health Maintenance Due Date Last Done Comments Breast Cancer Screening-Mammogram 1977 Cervical Cancer Screening 1977 Colon Cancer Screening-Colonoscopy 1977 Depression Screening 1977 Hepatitis C Screening 1977 DTaP/Tdap/Td Vaccine (1 - Tdap) 01/18/1988 Hepatitis B Screening 1995 Regular Well Visit/Exam 18-64 1995 Covid-19 Vaccine (3 2023-2 5 season) 2024 03/27/2022, 03/05/2022 Influenza Vaccine (#1) 2024 Pneumococcal vaccine <65 Aged Out No longer eligible based on patient's age to complete this topic Insurance [facility] CHOICE PLUS Care Teams Asp Net Mvc Developer Relationship Specialty Start Date End Date Sharmaine Dukes PA PCP - General Physician Overlock Hemmer 04/05/21 Radha Carney, [facility] [address] [address] Powder Truck Driver Infectious Diseases 07/14/22
--- OUTSIDE RECORDS SUMMARY | 2024-10-04 07:29 | XMS_ITS | Referral Summary ---
Author Organization [facility] Address [address] [place] [address] Care Team Providers Care Padded Box Sewer Name Role Phone Unavailable Primary Care Provider Unavailabl e Source Comments [facility],non-owned Affiliates and Associated Physician Practices is amultiple site organization consisting of ambulatory clinics and hospital sitesin [place], [place], [place] and [place]. This disclosure is being madepursuant to the Care Everywhere program and may not contain all information available regarding this patient. Last updated 18.[facility] Social History Tobacco Use Types Packs/Day Years [...] Comments Blood Pressure 154/99 06/13/2013 5:49 PM UNIVERSITY ADMINISTRATIVE ASSISTANT Pulse 84 06/13/2013 5:49 PM UNIVERSITY ADMINISTRATIVE ASSISTANT Temperature 36.8 C (98.3 F) 06/13/2013 5:49 PM UNIVERSITY ADMINISTRATIVE ASSISTANT Respiratory Rate 16 06/13/2013 5:49 PM UNIVERSITY ADMINISTRATIVE ASSISTANT Oxygen Saturation 99% 06/13/2013 5:49 PM UNIVERSITY ADMINISTRATIVE ASSISTANT Inhaled Oxygen Concentration - - Weight 81.6 kg (180 lb) 06/13/2013 5:49 PM UNIVERSITY ADMINISTRATIVE ASSISTANT Height 165.1 cm (5' 5) 06/13/2013 5:49 PM UNIVERSITY ADMINISTRATIVE ASSISTANT Body Mass Index 29.95 06/13/2013 5:49 PM UNIVERSITY ADMINISTRATIVE ASSISTANT Plan of Treatment Not on file
[2024-10-04 07:57] LABS: Anion Gap 7 mmol/L (4-12); Blood Urea Nitrogen 15 mg/dL (7-17); Calcium 9.6 mg/dL (8.4-10.2); Carbon Dioxide 31 mmol/L (22-30); Chloride 102 mmol/L (98-107); Estimated Glomerular Filt Rate > 60; Glucose 88 mg/dL (65-110); Sodium 140 mmol/L (137-145)
[2024-10-04 09:40] LABS: Vitamin D 25 Hydroxy 26.3 ng/mL
== END 2024-10-04 07:24 | disposition home or self-care (01) ==
LOC: ANHLAB 07:24
PROVIDERS: PCP Family Medicine; Visit Provider Nurse Practitioner Family
DX: T78.40XA Allergy, unspecified, initial encounter (principal); U09.9 Post COVID-19 condition, unspecified; D64.9 Anemia, unspecified; L65.9 Nonscarring hair loss, unspecified; L50.8 Other urticaria
CPT/HCPCS: 36415; 80048; 82306; 84443

== ENCOUNTER 2024-11-23 10:51 | Outpatient (CLI) | payer MEDICARE, OTHER, SELFPAY ==
[2024-11-23 11:23] LABS: Uric Acid 5.9 mg/dL (2.5-7.5)
--- OUTSIDE RECORDS SUMMARY | 2024-11-23 12:12 | XMS_ITS | Clinical Summary ---
Author Organization [facility] Address [address] [place] [address] Care Team Providers Care Shorthand Teacher Name Role Phone Unavailable Primary Care Provider Unavailabl e Source Comments [facility],non-owned Affiliates and Associated Physician Practices is amultiple site organization consisting of ambulatory clinics and hospital sitesin [place], [place], [place] and [place]. This disclosure is being madepursuant to the Care Everywhere program and may not contain all information available regarding this patient. Last updated 18.[facility] Badge Social History Tobacco Use Types Packs/Day Years Used Date Smoking Tobacco: Never Alcohol Use Standard Drinks/Week Comments No 0 (1 standard drink = 0.6 oz pur e alcohol) Comments Unknown Sex and Gender Information Value Date Recorded Sex Assigned at Not on file Legal Sex Female 6:42 PM COMB CAPPER Gender Identity Not on file Sexual Orientation Not on file Last Filed Vital Signs Vital Sign Reading Time Taken Comments Blood Pressure 154/99 06/13/2013 5:49 PM COMB CAPPER Pulse 84 06/13/2013 5:49 PM COMB CAPPER Temperature 36.8 C (98.3 F) 06/13/2013 5:49 PM COMB CAPPER Respiratory Rate 16 06/13/2013 5:49 PM COMB CAPPER Oxygen Saturation 99% 06/13/2013 5:49 PM COMB CAPPER Inhaled Oxygen Concentration - - Weight 81.6 kg (180 lb) 06/13/2013 5:49 PM COMB CAPPER Height 165.1 cm (5' 5) 06/13/2013 5:49 PM COMB CAPPER Body Mass Index 29.95 06/13/2013 5:49 PM COMB CAPPER Plan of Treatment Health Maintenance Due Date Last Done Comments COLOGUARD (AGES 45-75) - COL ON CA SCREENING 1977 COLON MONITORING 1977 COLONOSCOPY - COLON CA SCREENING 1977 CT COLONOGRAPHY - COLON CA SCREENING 1977 Colorectal Cancer Screening 1977 FIT - COLON CA SCREENING 1977 FLEX SIG - COLON CA SCREENING 1977 LIPID TESTING 1977 MAMMOGRAM 1977 HIV SCREENING 01/18/1992 HEPATITIS C SCREENING 01/13/1995 DTAP/TDAP/TD VACCINES (1 - Tdap) 01/18/1996 HEPATITIS B VACCINE (1 of 3 - 19+ 3-dose series) 01/18/1996 COVID-19 VACCINE (1 - 2023-2 5 season) 2024 DEPRESSION SCREENING 08/10/2024 INFLUENZA VACCINE (Season Ended) 2025 ZOSTER VACCINE (1 of 2) 2027 HIB VACCINE Aged Out No longer eligi ble based on patient's age to complete this topic HPV VACCINE Aged Out No longer eligi ble based on patient's age to complete this topic MENINGOCOCCAL (Group B) VACC INE SHARED DECISION-MAKING Aged Out No longer eligibl e based on patient's age to complete this topic MENINGOCOCCAL GROUPS A/C/Y/W VACCINE Aged Out No longer eligible b ased on patient's age to complete this topic PNEUMOCOCCAL VACCINE Aged Out No long er eligible based on patient's age to complete this topic
--- OUTSIDE RECORDS SUMMARY | 2024-11-23 12:12 | XMS_ITS | Data Portability ---
Author Organization [facility] Address [address] [facility], [place] [address] Care Team Providers Care Systems Applications Programming Lead Name Role Phone DEREK CANO Primary Care Provider Assessment No assessment recorded. Plan of Treatment Reminders Order Date Submit Date Provider Last Modified By Organization Details Last Modified Time Details Appointments None recorded. Lab TSH + free T4, serum 2020 021 [facility], [address] [place] [address], [address], [place], [address], 09:38:49 vitamin D, 25-hydroxy , total, serum 2020 021 [facility], [address] [place] [address], [address], [place], [address], 09:38:52 vitamin B12 + folate, serum or blood 2020 021 [facility], [address] [place] [address], [address], [place], [address], 09:38:51 CMP, serum or plasma 2020 021 [facility], [address] [place], [place] [address]DidLog Gal, [address], [place], [address], 09:38:50 albumin/cr eatinine, mass ratio, urine 2020 021 JOHNSON LAGUNA, Maya Santo, [address], [place], [address], 1 09:38:51 CBC w/ auto diff 2019 020 JOHNSON LAGUNA, Maya [address]anto, [address], [place], [address], 0 16:53:10 CMP, serum or plasma 2019 020 JOHNSON LAGUNA, Maya Santo, [address], [place], [address], 0 16:53:10 TSH, ultra-sens itive, serum 2019 020 JOHNSON LAGUNA, Maya [address]anto, [address], [place], [address], 0 16:53:41 lipid panel, serum 2019 020 JOHNSON LAGUNA, Maya Santo, [address], [place], [address], 0 16:51:53 CMP, serum or plasma 2018 019 JOHNSON LAGUNA, Maya Santo, [address], [place], [address], 9 15:13:26 CBC w/ auto diff 2018 019 JOHNSON LAGUNA, Maya Santo, [address], [place], [address], 9 15:13:25 lipid panel, serum 2018 019 Maya CORMIER, [address], [place], [address], 9 15:13:26 Referral physical therapist referral 2020 021 francis 1 [facility], [address], [place], [address], 1 09:45:06 Procedures None recorded. Surgeries None recorded. Imaging MAMMO, screening, bilateral [address] (Imaging), [facility]0 [facility] [address] [place] [address], [address], 1 14:42:51 XR, knee, 3 view [address] (Imaging), [facility]0 [facility] [address], [address], 0 10:57:04 Medication Orders lisinopril 10 mg tablet 2020 021 [facility] [address], [place], [address], 1 15:49:05 albuterol sulfate HFA 90 mcg/actuat ion aerosol inhaler 2019 020 [facility] [address], [place], [address], 0 12:04:47 Tessalon Perles 100 mg capsule 2019 020 [facility] [address], [place], [address], 0 12:04:50 ciprofloxa taty 0.3 % eye drops 2018 019 [facility] [address], [place], [address], 0 16:26:54 amoxicilli n 250 mg/5 mL oral suspension 2018 019 [facility] In [facility], [facility] [address], [place], [address], 0 16:51:28 Patient TargetsNo targets recorded. Patient Instructions Encounter Date Encounter Id Patient Instructions Last Modified By Organization Details Last Modified Time 04/26/2020 [id number] knee pain or injury: care instructions Not available 04/30/2020 09:55:14 04/18/2021 [id number] dash diet: care instructions Not available 04/18/2021 14:36:44 How To Lower Blood Pressure Not available 04/18/2021 14:36:44 Reason for Referral Physical Therapist Referral for Muscle weakness Referring Physician: Derek Cano, Customer Care Representative, Encounter Date: 04/18/2021 Results Created Date Observation Date Name Description Value Unit Range Abnormal Flag Note LastModifiedBy Organization Detail LastModifiedTime 09/19/1909/20/2020 TSH + free T4, serum TSH 1.500 uIU/m L 0.450- 4.500 Not Available [facility] ([facility]) [address] [place], [address], 09/20/2020 09:38:49 09/19/1909/20/2020 TSH + free T4, serum T4,free(dire ct) 0.97 NG/dL 0.82-1 .77 Not Available [facility] ([facility]) [address] [place], [address], 09/20/2020 09:38:49 09/19/1909/20/2020 CMP, serum or plasm a glucose 97 mg/dL 65-99 Not Available [facility] ([facility]) [address] [place], [address], 09/20/2020 09:38:50 09/19/19 21 09/20/2020 CMP, serum or plasm a BUN 8 mg/dL 6-24 Not Available [facility] ([facility]) [address] [place], [address], 09/20/2020 09:38:50 09/19/1909/20/2020 CMP, serum or plasm a creatinine 0.69 mg/dL 0.57-1 .00 Not Available [facility] ([facility]) [address] [place], [address], 09/20/2020 09:38:50 09/19/19 21 09/20/2020 CMP, serum or plasm a eGFR if nonafricn AM 107 mL/mi n/1.7 3 >59 Not Available [facility] ([facility]) [address] [place], [address], 09/20/2020 09:38:50 09/19/19 21 09/20/2020 CMP, serum or plasm a eGFR if africn AM 123 mL/mi n/1.7 3 >59 Not Available [facility] ([facility]) [address] [facility], [place], [address], 09/20/2020 09:38:50 09/19/1909/20/2020 CMP, serum or plasm a BUN/creatini ne ratio 12 9-23 Not Available [facility] ([facility]) [address] [place], [address], 09/20/2020 09:38:50 09/19/1909/20/2020 CMP, serum or plasm a sodium 143 mmol/ L 134-14 4 Not Available [facility] ([facility]) [address] [place], [address], 09/20/2020 09:38:50 09/19/1909/20/2020 CMP, serum or plasm a potassium 4.0 mmol/ L 3.5-5. 2 Not Available [facility] ([facility]) [address] [place], [address], 09/20/2020 09:38:50 09/19/19 21 09/20/2020 CMP, serum or plasm a chloride 104 mmol/ L 96-106 Not Available [facility] ([facility]) [address] [place], [address], 09/20/2020 09:38:50 09/19/19 21 09/20/2020 CMP, serum or plasm a carbon dioxide, total 24 mmol/ L 20-29 Not Available [facility] ([facility]) [address] [place], [address], 09/20/2020 09:38:50 09/19/19 21 09/20/2020 CMP, serum or plasm a calcium 9.4 mg/dL 8.7-10 .2 Not Available [facility] ([facility]) [address] [place], [address], 09/20/2020 09:38:50 09/19/19 21 09/20/2020 CMP, serum or plasm a protein, total 6.9 g/dL 6.0-8. 5 Not Available [facility] ([facility]) [address] [place], [address], 09/20/2020 09:38:50 09/19/19 21 09/20/2020 CMP, serum or plasm a albumin 4.2 g/dL 3.8-4. 8 Not Available [facility] ([facility]) [address] [place], [address], 09/20/2020 09:38:50 09/19/19 21 09/20/2020 CMP, serum or plasm a globulin, total 2.7 g/dL 1.5-4. 5 Not Available [facility] ([facility]) [address] [place], [address], 09/20/2020 09:38:50 09/19/19 21 09/20/2020 CMP, serum or plasm a A/G ratio 1.6 1.2-2. 2 Not Available [facility] ([facility]) [address] [place], [address], 09/20/2020 09:38:50 09/19/19 21 09/20/2020 CMP, serum or plasm a bilirubin, total 0.2 mg/dL 0.0-1. 2 Not Available [facility] ([facility]) [address] [place], [address], 09/20/2020 09:38:50 09/19/19 21 09/20/2020 CMP, serum or plasm a alkaline phosphatase 131 IU/L 39-117 above high normal Not Available [facility] ([facility]) [address] [place], [address], 09/20/2020 09:38:50 09/19/19 21 09/20/2020 CMP, serum or plasm a AST (SGOT) 17 IU/L 0-40 Not Available [facility] ([facility]) [address] [place], [address], 09/20/2020 09:38:50 09/19/19 21 09/20/2020 CMP, serum or plasm a ALT (SGPT) 23 IU/L 0-32 Not Available [facility] ([facility]) [address] [place], [address], 09/20/2020 09:38:50 09/19/19 21 09/20/2020 album in/cr eatin ine, mass ratio , urine creatinine, urine 65.3 mg/dL not estab. Not Available [facility] ([facility]) [address] [place], [address], 09/20/2020 09:38:51 09/19/19 21 09/20/2020 album in/cr eatin ine, mass ratio , urine albumin, urine <3.0 ug/mL not estab. Beth ified by lissa florez sis Not Available [facility] ([facility]) [address] [facility], [place], [address], 09/20/2020 09:38:51 09/19/19 21 09/20/2020 album in/cr eatin ine, mass ratio , urine alb/creat ratio <5 mg/g_ creat 0-29 Rachel l: 0 - 29 Moder ately incre ased: 30 - 300 Sever kane incre ased: >300 Not Available [facility] ([facility]) [address] [facility], [place], [address], 09/20/2020 09:38:51 09/19/19 21 09/20/2020 vitam in B12 + folat e, serum or blood vitamin B12 478 pg/mL 232-12 45 Not Available [facility] ([facility]) [address] [place], [address], 09/20/2020 09:38:51 09/19/1909/20/2020 vitam in B12 + folat e, serum or blood folate (folic acid), serum 12.6 NG/mL >3.0 A serum folat e leonidas ntrat ion of less than 3.1 ng/mL is consi dered to repre sent clini presley defic iency . Not Available [facility] ([facility]) [address] [facility], [place], [address], 09/20/2020 09:38:51 09/19/1909/20/2020 vitam in D, 25-hy droxy , total , serum vitamin D, 25-hydroxy 9.4 NG/mL 30.0-1 00.0 below low normal Vitam in D defic iency has been defin ed by the Insti courte of Medic ine and an Endoc rine Socie ty pract ice guide line as a level of serum 25-OH vitam in D less than 20 ng/mL (1,2) . The Endoc rine Socie ty went on to furth er defin e vitam in D insuf ficie ncy as a level betwe en 21 and 29 ng/mL (2). 1. IOM (Inst itute of Medic ine). 2010. Dieta ry refer ence inttadeo es for calci um and D. Kiel sherwood [place]: [facility] . 2. Hi glover MF, Jerad isabel [place], Iron off-F errar i CARDENAS, et al. Evalu ation , treat ment, and preve ntion of vitam in D defic iency : an Endoc rine Socie ty clini presley pract ice guide line. JCEM. 2010; 96(7) :1911 -30. Not Available [facility] ([facility]) [address] [facility], [place], [address], 09/20/2020 09:38:52 04/26/20 20 04/26/2020 XR, knee, 3 view No observ ation record ed. [address], [address], 04/27/2020 14:51:45 05/02/20 20 04/26/2020 XR, knee, 3 view No observ ation record ed. [address] (Imaging) [address] [place] [address], [address], 05/02/2020 17:19:46 05/05/20 20 05/04/2020 CT, abdom en + pelvi s, w/ contr ast No observ ation record ed. [address], [address], 05/07/2020 11:33:29 05/15/20 20 05/04/2020 CT, abdom en + pelvi s, w/ contr ast No observ ation record ed. Not Available 2019 14:33:44 03/16/20 21 03/16/2021 imagi ng/di agnos tic resul t No observ ation record ed. [address] [place], [address], 03/20/2021 17:34:17 03/19/20 21 03/19/2021 XR, chest No observ ation record ed. [address] [place], [address], 03/20/2021 17:34:35 03/19/20 21 03/19/2021 CT, abdom en + pelvi s, w/o contr ast No observ ation record ed. [email or web address] [place], [address], 03/20/2021 17:34:56 03/21/20 21 03/21/2021 CT, abdom en + pelvi s, w/ contr ast No observ ation record ed. [address] [place], [address], 03/21/2021 14:07:46 03/21/20 21 03/21/2021 US, duple x, venou s, extre mity, compl ete No observ ation record ed. [place], [address], 03/26/2021 16:23:22 03/21/20 21 03/21/2021 US, duple x, venou s, lower extre mity No observ ation record ed. [facility] [place], [address], 03/26/2021 16:23:46 03/21/20 21 03/21/2021 US, duple x, venou s, lower extre mity No observ ation record ed. [facility] [address] [facility], [place], [address], 03/26/2021 16:24:06 03/23/20 21 03/23/2021 XR, chest No observ ation record ed. [facility] [address] [facility], [place], [address], 03/26/2021 16:27:15 03/31/20 21 03/31/2021 oxyge n evalu ation * No observ ation record ed. Not Available 2020 12:47:00 04/17/20 21 04/17/2021 US, pelvi s, compl ete No observ ation record ed. [facility] [address], [place], [address], 04/25/2021 14:36:38 04/17/20 21 04/17/2021 US, pelvi s, compl ete No observ ation record ed. [facility] [address], [place], [address], 04/25/2021 14:42:09 04/19/20 21 04/17/2021 US, pelvi s, compl ete No observ ation record ed. [facility] [address], [place], [address], 04/25/2021 14:44:46 Result Notes None recorded. Problems Name Problem SNOMED Code Status Onset Date Resolution Date Notes Provider Name and Address Organization Details Recorded Time History of endometrios is [id number] 4107 Active 2018 Sena Vick MA [facility], [place] - S[facility] 9 14:46:16 Increased blood pressure 43711748 Active 2018 JOSIAS SHOEMAKER Attn: Zora rubio,[address] [facility], [place], [address], [facility] - [facility] 9 15:11:46 Pelvic mass 39877496 Active 2020 JOSIAS SHOEMAKER Attn: Zora rubio,[address] [facility], [place], [address], [facility] - [facility] 1 14:36:25 Essential hypertensio n 26938399 Active 2020 JOSIAS SHOEMAKER Attn: Zora rubio,[address] [facility], [place], [address], [facility] - [facility] 1 14:36:29 Problem Notes None recorded. Procedures Surgical History Date Name Laterality Status Provider Name and Address Organization Details Recorded Time 2020 esophagogastroduodenoscopy completed Charles Medrano MA [facility] 14:17:24 2020 colonoscopy completed Juanita Medrano MA [facility] 1 14:17:35 2019 Date of Last Pap Smear completed Juanita Medrano MA [facility] 1 14:10:50 cholecystectomy completed Sena Vick MA [place] - [facility] 9 14:46:32 Imaging Results Imaging Date Name Status LastModified by [facility] Details LastModified Time 04/26/2020 XR, knee, 3 view completed [address], [address], 04/27/2020 14:51:45 04/26/2020 XR, knee, 3 view completed [address] (Imaging) [address] [place] [address], [address], 05/02/2020 17:19:46 05/04/2020 CT, abdomen + pelvis, w/ contrast completed [address], [address], 05/07/2020 11:33:29 05/04/2020 CT, abdomen + pelvis, w/ contrast completed Information not available 05/15/2020 14:33:44 03/16/2021 imaging/diagno stic result completed [address] [place], [address], 03/20/2021 17:34:17 03/19/2021 XR, chest completed [address] [place], [address], 03/20/2021 17:34:35 03/19/2021 CT, abdomen + pelvis, w/o contrast completed [address] [place], [address], 03/20/2021 17:34:56 03/21/2021 CT, abdomen + pelvis, w/ contrast [facility] [place], [address], 03/21/2021 14:07:46 03/21/2021 US, duplex, venous, extremity, complete completed [place], [address], 03/26/2021 16:23:22 03/21/2021 US, duplex, venous, lower extremity completed [place], [address], 03/26/2021 16:23:46 03/21/2021 US, duplex, venous, lower extremity completed [facility] [place], [address], 03/26/2021 16:24:06 03/23/2021 XR, chest completed [facility], [place], [address], 03/26/2021 16:27:15 03/31/2021 oxygen evaluation* completed Information not available 04/02/2021 12:47:00 04/17/2021 US, pelvis, complete completed [facility] [place] [facility] [address], [place], [address], 04/25/2021 14:36:38 04/17/2021 US, pelvis, complete [facility] [place] [facility] [address], [place], [address], 04/25/2021 14:42:09 04/17/2021 US, pelvis, complete completed [facility] [place] [facility] [address], [place], [address], 04/25/2021 14:44:46 Procedure Notes None recorded. Medical Equipment None Reported. Allergies No known drug allergies Medications Name Sig Start Date Stop Date Status Note LastModified by Organization Details LastModified Time nystatin 100,000 unit/mL oral suspension Take 5 mL 4 times a day by oral route for 7 days. 04/18 completed Not Available Not Available Not Available amoxicillin 600 mg-potassiu m clavulanate 42.9 mg/5 mL oral suspension 03/25 completed Not Available Not Available Not Available prednisone 20 mg tablet 04/18 completed Not Available Not Available Not Available Tessalon Perles 100 mg capsule Take 1 capsule 3 times a day by oral route. 04/26 completed Not Available Not Available Not Available amoxicillin 250 mg/5 mL oral suspension Take 10 mL every 12 hours by oral route for 7 days. 08/12 completed Not Available Not Available Not Available ciprofloxac in 0.3 % eye drops INSTILL 1 DROP INTO AFFECTED EYE(S) BY OPHTHALMI C ROUTE EVERY 2 HOURSWHIL E AWAKE FOR 2 DAYS THEN 1 DROP EVERY 4 HRS WHILE AWAKE FOR 5 DAYS 08/12 completed Not Available Not Available Not Available lisinopril 10 mg tablet TAKE 1 TABLET BY MOUTH EVERY DAY 2020 active Not Available Not Available Not Avai lable halobetasol propionate 0.05 % topical cream active Not Available Not Available Not Available mupirocin 2 % topical ointment 04/18 completed Not Available Not Available Not Available ergocalcife rol (vitamin D2) 1,250 mcg (50,000 unit) capsule Take 1 capsule every week by oral route. active Not Available Not Available No t Available albuterol sulfate HFA 90 mcg/actuati on aerosol inhaler Inhale 2 puffs every 4 hours by inhalatio n route as needed. 04/26 completed Not Available Not Available Not Available Multi Vitamin active Not Available Not Available Not Available Vitals Date Recorded Body height Body mass index (BMI) Body weight Body temperature Heart rate Oxygen saturation Oxygen saturation in Arterial blood by Pulse oximetry Systolic blood pressure Diastolic blood pressure Provider Name and Address Organization Details Last Updated DateTime 9 165.1 cm 33.1 kg/m2 58073.8 8 g 98 [degF] 63 /min 99 % 99 % 146 mm[Hg] 98 mm[Hg] Sena Vick MA [facility] 9 14:51:25 Date Recorded Body height Body mass index (BMI) Body weight Body temperature Heart rate Oxygen saturation Oxygen saturation in Arterial blood by Pulse oximetry Systolic blood pressure Diastolic blood pressure Provider Name and Address Organization Details Last Updated DateTime 0 165.1 cm 34.5 kg/m2 56310.3 2 g 98.7 [degF] 92 /min 98 % 98 % 128 mm[Hg] 82 mm[Hg] Eliana Ku [place] [facility] 0 16:33:13 Date Recorded Body height Provider Name an d Address Organization Details Last Updated DateTime 04/26/2020 165.1 cm Caro Resendiz MA [facility] 2019 12:04:33 Date Recorded Body height Body temperature Body mass index (BMI) Body weight Heart rate Oxygen saturation Oxygen saturation in Arterial blood by Pulse oximetry Systolic blood pressure Diastolic blood pressure Provider Name and Address Organization Details Last Updated DateTime 165.1 cm 93.7 [degF] 35.7 kg/m2 35265.8 7 g 75 /min 99 % 99 % 192 mm[Hg] 110 mm[Hg] Juanita Medrano MA [facility] 14:18:53 Date Recorded Body height Provider Name an d Address Organization Details Last Updated DateTime 04/18/2021 165.1 cm Caro Resendiz MA [facility] 2020 11:27:13 Social History Question Answer Notes LastModified by Organizat ion Details LastModified Time Tobacco Smoking Status Never Smoker Sena Vick MA [facility], [facility] 03/25/2019 14:48:36 Do You Have An Advance Directive? No Information not available 09/19/2020 Is Your Home Air Conditioned? Yes Information not available 09/19/2020 What Is Your Level Of Alcohol Consumption? Occasional Information not available 09/19/2020 If You Are , What Was Your Level Of Alcohol Consumption Prior To ? None Information not available 09/19/2020 Are You Currently Sexually Active With Anyone Who Has Traveled (within The Last 12 Weeks) To A Zika-affected Area? No Information not available 09/19/2020 Do You Have A Basement? No Information not available 09/19/2020 Do You Wear A Helmet When Biking? Yes Information not available 09/19/2020 Are You Blind Or Do You Have Difficulty Seeing? No Information not available 09/19/2020 Is Blood Transfusion Acceptable In An Emergency? Yes Information not available 09/19/2020 What Is Your Level Of Caffeine Consumption? Moderate Tea, Daily Information not available 04/26/2020 Are You A Caregiver? No Information not available 09/19/2020 What Type Of Process Worker Do You Use? None Information not available 09/19/2020 In The 14 Days Before Symptom Onset, Have You Had Close Contact With A Laboratory-confi rmed COVID-19 While That Case Was Ill? No Information not available 09/19/2020 In The 14 Days Before Symptom Onset, Have You Had Close Contact With A Person Who Is Under Investigation For COVID-19 While That Person Was Ill? No Information not available 09/19/2020 Have You Been To An Area Known To Be High Risk For COVID-19? No Information not available 09/19/2020 Are You Currently Employed? Yes Information not available 04/26/2020 Are You Deaf Or Do You Have Serious Difficulty Hearing? No Information not available 09/19/2020 What Type Of Diet Are You Following? REGULAR Information not available 04/26/2020 Do You Have A Directive To Physicians? No Information not available 09/19/2020 Have You Processed Blood Or Body Fluids From An Ebola Virus Disease Patient Without Appropriate PPE? No Information not available 09/19/2020 Do You Reside In Or Have You Traveled To An Area Where Ebola Virus Transmission Is Active? No Information not available 09/19/2020 Do You Or Have You Ever Used E-cigarettes Or Vape? Never Used Electronic Cigarettes Information not available 04/26/2020 What Is The Highest Grade Or Level Of School You Have Completed Or The Highest Degree You Have Received? [id number] Information not available 09/19/2020 Do You Have An Electrostatic Air Filter? No Information not available 09/19/2020 Who Is Your Employer? [employer] Information not available 09/19/2020 What Is Your Occupation? [place] [employer] Information not available 09/19/2020 How Many Days Of Moderate To Strenuous Exercise, Like A Brisk Walk, Did You Do In The Last 7 Days? 4 Information not available 09/19/2020 On Those Days That You Engage In Moderate To Strenuous Exercise, How Many Minutes, On Average, Do You Exercise? 60 Information not available 09/19/2020 Have You Been Exposed To Chemicals Or Toxins? No Information not available 09/19/2020 Have You Been Exposed To Heavy Metals? No Information not available 09/19/2020 Have There Been Any Changes To Your Family Or Social Situation? No Information not available 09/19/2020 What Is The Fluoride Status Of Your Home? Unknown Information not available 09/19/2020 Are There Any Guns Present In Your Home? No Information not available 09/19/2020 Which Of Your Hands Is Dominant? Right Information not available 09/19/2020 Have You Recently Or Are You Planning To Travel To An Area With Zika Virus? No Information not available 09/19/2020 Do You Have A Humidifier? No Information not available 09/19/2020 Where Do You Live? Other [facility] Information not available 09/19/2020 Live Alone Or With Others? With Others Information not available 04/26/2020 Do You Have A High School Diploma Or Higher Education? Yes Information not available 09/19/2020 Do You Sometimes Have To Miss Your Medical Appointments Due To Difficult Getting Transportation? No Information not available 09/19/2020 Do You Feel Unfairly Treated Due To Things Such As Race, Age, Gender, Disability Or Some Other Reason? No Information not available 09/19/2020 Do You Feel Physically And Emotionally Safe While Living At Home? Yes Information not available 09/19/2020 Do You Feel Physically And Emotionally Safe In Your Neighborhood Or Other Public Places? Yes Information not available 09/19/2020 How Long Have You Lived There? 6 Years Information not available 09/19/2020 Do You Have A Medical Power Of Welfare Eligibility Worker? No Information not available 09/19/2020 Do You Have Moisture Problems In Your Home? No Information not available 09/19/2020 What Was The Date Of Your Most Recent Tobacco Screening? 04/18/2021 Information not available 04/18/2021 How Many Children Do You Have? 1 Information not available 04/26/2020 Are There Any Occupational Health Risks Where You Work? No Information not available 09/19/2020 Do You Have An Out Of Hospital DNR? No Information not available 09/19/2020 Have You Ever Been Counseled For Unhealthy Alcohol Use? No Information not available 09/19/2020 Do You Have Any Pets? No Information not available 09/19/2020 Do You Use Protection During Sex? No Information not available 09/19/2020 What Is Your Relationship Status? Information not available 09/19/2020 Do You Use Your Seat Belt Or Car Seat Routinely? Yes Information not available 09/19/2020 Are You Sexually Active? Yes Information not available 09/19/2020 Do You Have Smoke And Carbon Monoxide Detectors In Your Home? Yes Information not available 09/19/2020 Are You Passively Exposed To Smoke? No Information not available 09/19/2020 Do You Or Have You Ever Used Smokeless Tobacco? Never Used Smokeless Tobacco Information not available 04/26/2020 Are There Any Smokers In Your House? Yes Information not available 09/19/2020 How Much Tobacco Do You Smoke? No [email or web address] Information not available 03/25/2019 Do You Participate In Social Media? Yes Information not available 09/19/2020 What Types Of Sporting Activities Do You Participate In? None Information not available 09/19/2020 General Stress Level Low Information not available 04/26/2020 Do You Feel Stressed (tense, Restless, Nervous, Or Anxious, Or Unable To Sleep At Night)? [id number] Information not available 09/19/2020 Do You Use Any Illicit Or Recreational Drugs? No Information not available 09/19/2020 Has Tobacco Cessation Counseling Been Provided? No Information not available 09/19/2020 On What Date Was Tobacco Cessation Counseling Provided? 04/18/2021 Information not available 04/18/2021 Have You Recently Traveled Abroad? No Information not available 09/19/2020 Are You Currently In School? No Information not available 09/19/2020 Do You Have Any Dietary Restrictions? No Information not available 09/19/2020 Do You Or Have You Ever Used Any Other Forms Of Tobacco Or Nicotine? No Information not available 09/19/2020 Sex: Unknown Functional Status Question Answer Note LastModified by Organizat ion Details LastModified Time Do you have difficulty walking or climbing stairs? No Information not available 09/19/2020 Do you have transportation difficulties? No Information not available 09/19/2020 Are you able to walk? YESWOREST Information not available 09/19/2020 Do you have difficulty doing errands alone? No Information not available 09/19/2020 Are you able to care for yourself? Yes Information n ot available 04/26/2020 Do you have difficulty dressing or bathing? No Information not available 09/19/2020 What is your exercise level? Moderate 3-4 times weeking Information not available 09/19/2020 Mental Status Question Answer Note LastModified by Organizat ion Details LastModified Time Do you have difficulty concentrating, remembering or making decisions? Yes Difficulty concentrating Information not available 09/19/2020 Family History Relationship Description Onset Age of this Age Resolved Age Notes LastModified by Organization Details LastModified Time Father Myocardial infarction 49 [email or web address] Not available 03/25 14:48:01 Paternal Grandfather Myocardial infarction 49 [email or web address] Not available 03/25 14:48:17 Brother Myocardial infarction 44 [email or web address] Not available 03/25 14:48:26 Medical History Condition Response Coronary Artery Disease N Other N High Blood Pressure N Atrial Fibrillation N Kidney or Bladder Problems N Thyroid Problems N GI Problems N Depression N COPD N Blood Clots N Skin Problems N Anemia N Heart Attack (CA) N Anxiety Disorder N Diabetes N Muscle, Joint, or Bone Problems N Seizures/Epilepsy N Acid Reflux (GERD) N Cancer N Stroke N Asthma N Allergies N High Cholesterol N Hepatitis N Liver Disease N Headaches N Heart Failure N Osteoporosis N Gynecological History Statement/Question Response If Post Menopausal, Age at Menopause Date of LMP On BCP's at Conception? N Menses Monthly N STIs/STDs N Date of Last Pap Smear 08/10/2019 Age at Menarche 15 Current Control Method Ablation Age at First Child 29 LMP Unknown Obstetrics History GPAL:G 1 P 1 0 0 1 Type Value Multiple Births 0 Full Term 1 Induced 0 Spontaneous 0 Premature 0 Living 1 Ectopics 0 Total 1 Past Encounters Encounter ID Performer Location Encounter Start Date Encounter Closed Date Diagnosis/Indication Diagnosis SNOMED-CT Code Diagnosis ICD10 Code Diagnosis Note [id number] JOSIAS SHOEMAKER [facility] [address] [place] [address] 03/25/2019 14:28:59 03/28/2019 08:57:21 Eye infection 393314382 H44.009 Kourtney is a 44 YO F presenting for right eye irritation x 1 week. On exam clear discharge is noted on right eye. EOM intact. no vision abnormalit ies. right cheek slightly erythemato us but not swollen - abx eyedrops- amoxicilli n 500mg x 7 days- f/u next week to make- opthalmolo gy if not cleared Increased blood pressure 91900364 R03.0 Patient has a family history of cardiac before age 50 in 3 family members. Today her BP 146/98 - take bp at home x 1 week- come back for BP check next week- checking labs for other causes of elevated BP and cardiac risk factors- kidney, cholestero l [id number] JOSIAS SHOEMAKER [facility] [address] [place] [address] 08/12/2019 16:25:31 08/15/2019 11:22:56 Cholesterol screening 694623372 Z13.220 Elevated blood-pressure reading without diagnosis of hypertension 203536443 R03.0 Upper resp iratory infection 02180665 J06.9 patient presents with uri. She is feeling better but continues to have a cough. afebrile on exam. - teslorrie layton prn- honey tea- f/u if not improving Wheezing 63836937 R06.2 [id number] JOSIAS SHOEMAKER [facility] [address] [place] [address] 04/26/2020 12:03:33 04/30/2020 10:57:04 Pain in right knee [id number] 58067 M25.561 right knee pain x 2 weeks after running into table. Reports some bruising and instabilit y. pain comes and goes and today is 11/17. - RICE- xr- knee brace [id number] JOSIAS SHOEMAKER [facility] [address] [place] [address] 09/19/2020 14:01:34 09/20/2020 20:12:11 Essential hypertension 23352893 I10 BP 192/110 and 160/110 on recehck of left arm, not wnl. Patient is to buy BP cuff today and call back thursday with BP readings. She states she is in pain today. Will start Lisinopril 10 mg. denies cp, sob, vision changes. Advised to check BP regularly with a goal of <140/90, if BP consistent ly >140/90, advised to contact clinic Discussed DASH diet Advised weight loss and diet is best way to control BP Advised 30 minutes of exercise minimum daily Advised tobacco, alcohol, caffeine all increase BP Advised goal for BP is <140/90 Intolerant of cold 06817 000 R68.89 Patient c/o being cold, depressed mood, dr skin. Will run labs and f/u. Screening mammography 24 829393 Z12.31 never had mammogram. no breast complaints [id number] JOSIAS SHOEMAKER [facility] [address] [place] [address] 04/18/2021 09:16:21 04/20/2021 10:20:26 Muscle weakness 57187952 M62.81 Patient was hospitaliz ed for 20 or so days in ICU with COVID pneumonia. She was released three weeks ago and is building up her strength again. Patient is still having some weakness sitting to standing and sometimes with walking. She lost >15 lbs while in hospital. She would benefit from home PT. Pneumonia caused by SARS-CoV-2 [id number] 78171848 J12.82 She was hospitaliz ed from - at [facility] . While hsoitalize d she also has internal bleeding. She weaned herself off oxygen on Thursday without supervisio n. States oxygen is 96-97 when at rest and 94-95 when walking slowly. denies CP but states she does cough and get sob when walking. Respiratory failure [id number] 89714 J96.90 Patient had respirator y failure from COVID pneumonia. She was hospitaliz ed from 10-02 at [facility] . While hospitaliz ed she also has internal bleeding. She weaned herself off oxygen on Thursday without supervisio n. States oxygen is 96-97 when at rest and 94-95 when walking slowly. denies CP but states she does cough and get sob when walking. - advised calling homehealth to make sure she can be off oxygen- f/u one month- f/u with pulmonolog ist Essential hypertension 15860980 I10 Patient states BP at hospital and her appointmen t for OBGYN was controlled without lisinopril . Will have her come in office one month and continue monitoring at home. Advised to check BP regularly with a goal of <140/90, if BP consistent ly >140/90, advised to contact clinic Discussed DASH diet Advised weight loss and diet is best way to control BP Advised 30 minutes of exercise minimum daily Advised tobacco, alcohol, caffeine all increase BP Advised goal for BP is <140/90 Pelvic mass [id number] R19 .00 During hospitaliz ation they found a mass in her pelvic region-com plex ovarian cysts? and a large boggy uterus.. had blood work [facility] mass ovary and US done yesterday. no fam hx ovarian cancer. large uterus. well woman exam next Thursday. Health Concerns Section Related Observation LastModified by Organization Detai ls LastModified Time None Recorded Concern Status LastModified by Organization Details LastModified Time None Recorded Advance Directives Directive N: Payers Encounter Date Sequence Insurance Name Policy Number Policy Blas Covered Member ID Blas Member ID Guarantor Name 03/25/2019 1 [place] [id number] Kourtney Sohan [id number] Kourtney Cook 08/12/2019 1 [place] [id number] Kourtney Cook [id number] Kourtney Cook 04/26/2020 1 [place] [id number] Kourtney Cook [id number] Kourtney Cook 09/19/2020 1 [place] [id number] Kourtney Cook [id number] Kourtney Parry 04/18/2021 1 [facility] [id number] Tony Parry [id number] Kourtney Parry Notes Date Note Type Note Provider Name and Address Organization Details Recorded Time 03/25/2019 text/html Kourtney is a 44 Y O F presenting for right eye irritation x 1 week Eye watering on right side, slightly swollen, and pt stated it also hurts some. It started when hiking over the weekend. It is not affecting her vision. JOSIAS SHOEMAKER Attn: Accounting,[address] [place], [address], [facility] 03/28/2019 05:53:11 08/12/2019 text/html Upper Respirator y SymptomsReported bypatient.Location:hea d; chest Quality:feels percent of normal;congested;dry cough Severity:mild; c/o nose being sore from wiping drainage Duration:3-4 days duration Onset/Timing:gradual Context:no sick contacts; no foreign travel; non-smoker Associated Symptoms:no sputum production; no shortness of breath; no wheezing; no change in number of pillows needed to sleep at night; no sweats; no fever; no significant weight gain; no significant weight loss; no morning cough; no sore throat; no vomiting; no diarrhea; no rash; no nausea patient presents with URI JOSIAS SHOEMAKER Attn: Accounting[address] [place], [address], [facility] 08/14/2019 04:33:22 04/26/2020 text/html KneeReported bypatient.Location:rig ht Quality:aching; throbbing Severity:moderate Duration:days; 2 weeks Timing:gradual Context:hit on table Alleviating Factors:rest; elevation; NSAIDs Aggravating Factors:standing Associated Symptoms:no weakness; no numbness; no tingling; no redness; no warmth; no ecchymosis; no catching/locking; no buckling; no grinding; no radiation down leg; no drainage; no fever; no chills; no weight loss; no change in bowel/bladder habits;swelling;ecchym osis;popping/clicking; instability Prior Imaging:MRI; 2014 Work Related:no Patient presents with right knee pain x 2 weeks two weeks ago patient ran into table hurting the anterior part of her knee where the bone is. She reports some swelling and bruising. leg wants to give out.has not been seen by provider yet. ibuprofen 400 mg once every few days. pain today 4/10, pain waxes and wanes. feels like a pulling sensation. 2014 mri of same knee showed mild effusion and edema. She is working from home and able to ice and elevate. JOSIAS SHOEMAKER Attn: Accounting,[address] [facility], [place], [address], [facility] 04/30/2020 09:55:36 09/19/2020 text/html Kourtney is a 45 Y O F here for I'm always cold She saw Dr Bueno in [place] for RUQ pain. EGD normal and colonoscopy also done but waiting on results. Was told it may be sphincter of anh dysfunction. does say has dry skin, depressed mood, feeling cold all the time, hard to lose weight. JOSIAS SHOEMAKER Attn: Accounting,[address] [facility], [place], [address], [facility] 09/19/2020 15:53:57 04/18/2021 text/html Kourtney is a 46 Y O F pmhxz hypertension,obesity, COVID pneumonia complicated by resp failure and hemmorrhage presenting for f/u released 3 weeks ago from [facility]. She was hospitalized from ThursdayMar 11-. weaned herself off oxygen. has not been on 02 since Thursday. She was on 1 when at rest and 2 when standing. O2 has been 96-97 at rest. walking 93-94. Still coughing. denies cp. sob if walking. home health has not reched out to her. She had to relearn how to walk and still having weakness. did see pulm in hospital and does have f/u this month. During hospitalization they found a mass in her pelvic region-complex ovarian cysts? and a large boggy uterus.. had blood work [facility] mass ovary and US done yesterday. no fam hx ovarian cancer. large uterus. well woman exam next Thursday. She states her BP has been under control. At her appointment with OBGYN yesterday it was 123/82, not on lisinopril. She has not checked outher amado. JOSIAS SHOEMAKER Attn: Accounting,[address] [place], [address], [facility] 04/18/2021 14:36:49 OBGyn Episode No OBEpisode recorded.
--- OUTSIDE RECORDS SUMMARY | 2024-11-23 12:13 | XMS_ITS | Clinical Summary ---
Author Organization [facility] at [facility] Office Center Address [address] [place] [address] Care Team Providers Care Baster Hand Name Role Phone Sharmaine Dukes Primary Care [...] patient's age to complete this topic Insurance [facility] CHOICE PLUS Care Teams Baster Hand Relationship Specialty Start Date End Date Sharmaine Dukes PA PCP - General Physician Plastic Dolls Mold Filler 04/05/21 Radha Carney, [facility] [address] [facility] [address] [employer] Director Infectious Diseases 07/14/22
--- OUTSIDE RECORDS SUMMARY | 2024-11-23 12:13 | XMS_ITS | Clinical Summary ---
Author Organization [facility] Address [address] [place] [address] Care Team Providers Care Dairy Associate Name Role Phone Sree Leonardo MD Primary Care Provider [phone] Allergies No known active allergies Medications halobetasol 0.05 % cream Apply 1 each topically daily. 1 Active ondansetron (ZOFRAN-ODT) 4 MG disintegrating tablet Take 1 tablet (4 mg total) by mouth every 8 (eight) hours as needed. 20 tablet 4 Active Active Problems Problem Noted Date Diagnosed Date Acute respiratory failure ([facility]) 02/2021 Pneumonia due to COVID-19 virus 03/12/2021 [...] Comments Blood Pressure 163/91 08/17/2023 12:15 PM WASTE BALER Pulse 116 08/17/2023 12:15 PM WASTE BALER Temperature 37.5 C (99.5 F) 08/17/2023 12:15 PM WASTE BALER Respiratory Rate 18 08/17/2023 12:15 PM WASTE BALER Oxygen Saturation 97% 08/17/2023 12:15 PM WASTE BALER Inhaled Oxygen Concentration - - Weight 88.5 kg (195 lb) 08/17/2023 12:15 PM WASTE BALER Height 165.1 cm (5' 5) 08/17/2023 12:15 PM WASTE BALER Body Mass Index 32.45 08/17/2023 12:15 PM WASTE BALER Plan of Treatment Health Maintenance Due Date [...] - 2023-2 5 season) 2024 03/27/2022, 03/05/2022 Meningococcal B Vaccine Aged Out No l onger eligible based on patient's age to complete this topic Meningococcal Vaccine Aged Out No camelia kasandra eligible based on patient's age to complete this topic Pneumococcal Vaccine: Pediatrics (0 to 5 Years) and At-Risk Patients (6 to 49 Years) Aged Out No longer eligible b ased on patient's age to complete this topic RSV Immunizations Under 20 Months Aged Out No longer eligible b ased on patient's age to complete this topic Goals Goal Patient Goal Type Associated Problems Recent Progress Patient-Stated? Author Family - family caregiver with be involved in care transitions and discharge planning General No Yasmeen Barba, MOBILE PET GROOMERbrake press operator [facility] Advance Directives * Full Code (Latest Code Status on File) Date Activated Date Inactivated Comments 03/16/2021 4:16 AM 03/31/2021 3:34 PM * Full Code Date Activated Date Inactivated Comments 03/11/2021 2:32 PM 03/15/2021 9:09 PM Care Teams Dairy Associate Relationship Specialty Start Date End Date Sree Leonardo MD [address] [address] PCP - General FAMILY PRACTICE 08/17/23
--- OUTSIDE RECORDS SUMMARY | 2024-11-23 12:13 | XMS_ITS | Referral Summary ---
Author Organization [facility] at [facility] Office Center Address [address] [place] [address] Care Team Providers Care Oceanography Teacher Name Role Phone Sharmaine Dukes Primary Care [...] Plan of Treatment Not on file Insurance [facility] CHOICE PLUS Care Teams Oceanography Teacher Relationship Specialty Start Date End Date Sharmaine Dukes PA PCP - General Physician Real Estate Services Coordinator 04/05/21 Radha Carney [facility] [address] [facility] [address] Ship [employer] Infectious Diseases 07/14/22
== END 2024-11-23 10:52 | disposition home or self-care (01) ==
LOC: ANHLAB 10:53
PROVIDERS: PCP Family Medicine; Visit Provider Nurse Practitioner Adult Health
DX: M79.89 Other specified soft tissue disorders (principal)
CPT/HCPCS: 36415; 84550

== ENCOUNTER 2024-12-16 13:06 | Emergency (ER) | payer OTHER, SELFPAY ==
--- OUTSIDE RECORDS SUMMARY | 2024-12-16 13:08 | XMS_ITS | Referral Summary ---
Author Organization [facility] at [facility] Office Center Address [address] [place] [address] Care Team Providers Care Technical Services Coordinator Name Role Phone Sharmaine Dukes Primary Care [...] 9:35 AM CDT Height 165.1 cm (5' 5 ) 04/27/2023 9:35 AM CDT Body Mass Index 33.56 04/27/2023 9:35 AM CDT Plan of Treatment Not on file Insurance [facility] CHOICE PLUS Care Teams Technical Services Coordinator Relationship Specialty Start Date End Date Sharmaine Dukes PA PCP - General Physician Counter Person 04/05/21 Radha Carney [facility] [address] [facility] [address] [employer] Infectious Diseases 07/14/22
--- OUTSIDE RECORDS SUMMARY | 2024-12-16 13:08 | XMS_ITS | Clinical Summary ---
Author Organization [facility] Address [address] [place] [address] Care Team Providers Care Foil Spinner Name Role Phone Unavailable Primary Care Provider Unavailabl e Source Comments [facility],non-owned Affiliates and Associated Physician Practices is amultiple site organization consisting of ambulatory clinics and hospital sitesin [place], [place], [place] and [place]. This disclosure is being madepursuant to the Care Everywhere program and may not contain all information available regarding this patient. Last updated 18.[facility] [employer] Social History Tobacco Use Types Packs/Day Years Used Date Smoking Tobacco: Never Alcohol Use Standard Drinks/Week Comments No 0 (1 standard drink = 0.6 oz pur e alcohol) Comments Unknown Sex and Gender Information Value Date Recorded Sex Assigned at Not on file Legal Sex Female 6:42 PM TYPEWRITER ALIGNER Gender Identity Not on file Sexual Orientation Not on file Last Filed Vital Signs Vital Sign Reading Time Taken Comments Blood Pressure 154/99 06/13/2013 5:49 PM TYPEWRITER ALIGNER Pulse 84 06/13/2013 5:49 PM TYPEWRITER ALIGNER Temperature 36.8 C (98.3 F) 06/13/2013 5:49 PM TYPEWRITER ALIGNER Respiratory Rate 16 06/13/2013 5:49 PM TYPEWRITER ALIGNER Oxygen Saturation 99% 06/13/2013 5:49 PM TYPEWRITER ALIGNER Inhaled Oxygen Concentration - - Weight 81.6 kg (180 lb) 06/13/2013 5:49 PM TYPEWRITER ALIGNER Height 165.1 cm (5' 5 ) 06/13/2013 5:49 PM TYPEWRITER ALIGNER Body Mass Index 29.95 06/13/2013 5:49 PM TYPEWRITER ALIGNER Plan of Treatment Health Maintenance Due Date [...]
--- OUTSIDE RECORDS SUMMARY | 2024-12-16 13:08 | XMS_ITS | Clinical Summary ---
Author Organization [facility] Address [address] [place] [address] Care Team Providers Care Electrical Development Engineer Name Role Phone Sree Leonardo MD Primary Care Provider [phone] Allergies No known active allergies Medications halobetasol 0.05 % cream Apply 1 each topically daily. 1 Active ondansetron (ZOFRAN-ODT) 4 MG disintegrating tablet Take 1 tablet (4 mg total) by mouth every 8 (eight) hours as needed. 20 tablet 4 Active Active Problems Problem Noted Date Diagnosed Date Acute respiratory failure ([facility]) 02/2021 Pneumonia due to COVID-19 virus 03/12/2021 [...] Comments Blood Pressure 163/91 08/17/2023 12:15 PM CISCO ENGINEER Pulse 116 08/17/2023 12:15 PM CISCO ENGINEER Temperature 37.5 C (99.5 F) 08/17/2023 12:15 PM CISCO ENGINEER Respiratory Rate 18 08/17/2023 12:15 PM CISCO ENGINEER Oxygen Saturation 97% 08/17/2023 12:15 PM CISCO ENGINEER Inhaled Oxygen Concentration - - Weight 88.5 kg (195 lb) 08/17/2023 12:15 PM CISCO ENGINEER Height 165.1 cm (5' 5 ) 08/17/2023 12:15 PM CISCO ENGINEER Body Mass Index 32.45 08/17/2023 12:15 PM CISCO ENGINEER Plan of Treatment Health Maintenance Due Date [...] and discharge planning General No Yasmeen Barba, NATUROPATHIC ONCOLOGY PROVIDERcommercial or institutional cleaner [place] Advance Directives * Full Code (Latest Code Status on File) Date Activated Date Inactivated Comments 03/16/2021 4:16 AM 03/31/2021 3:34 PM * Full Code Date Activated Date Inactivated Comments 03/11/2021 2:32 PM 03/15/2021 9:09 PM Care Teams Electrical Development Engineer Relationship Specialty Start Date End Date Sree Leonardo MD [address] [place] [address] PCP - General FAMILY PRACTICE 08/17/23
--- OUTSIDE RECORDS SUMMARY | 2024-12-16 13:08 | XMS_ITS | Clinical Summary ---
Author Organization [facility] at [facility] Office Center Address [address] [place] [address] Care Team Providers Care Adult Literacy Teacher Name Role Phone Sharmaine Dukes Primary [...] Regular Well Visit/Exam 18-64 1995 Covid-19 Vaccine (2023-2 5 season) 2024 03/27/2022, 03/05/2022 Influenza Vaccine (Season Ended) 2025 Pneumococcal vaccine <65 Aged Out No longer eligible based on patient's age to complete this topic Insurance [facility] CHOICE PLUS Care Teams Adult Literacy Teacher Relationship Specialty Start Date End Date Sharmaine Dukes PA PCP - General Physician Motorsports Technician 04/05/21 Radha Carney, [facility] [address] [facility] [address] Vaccinator Infectious Diseases 07/14/22
--- OUTSIDE RECORDS SUMMARY | 2024-12-16 13:08 | XMS_ITS | Data Portability ---
Author Organization [facility] Address [address] [place] [address] Care Team Providers Care Dog Raiser Name Role Phone DEREK CANO Primary Care Provider Assessment No assessment recorded. Plan of Treatment Reminders Order Date Submit Date Provider Last Modified By Organization Details Last Modified Time Details Appointments None recorded. Lab TSH + free T4, serum 2020 021 [facility], [address] [place] [address], [address], [place], [address], 09:38:49 vitamin D, 25-hydroxy , total, serum 2020 021 [facility], [address] [place] [address], [address], [place], [address], 09:38:52 vitamin B12 + folate, serum or blood 2020 021 [facility], [address] [place] [address], [address], [place], [address], 09:38:51 CMP, serum or plasma 2020 021 [facility], [address] [place], [place] [address], [address], [place], [address], 09:38:50 albumin/cr eatinine, mass ratio, urine 2020 021 JOHNSON LAGUNA, Maya [address]anto, [address], [place], [address], 1 09:38:51 CBC w/ auto diff 2019 020 JOHNSON LAGUNA, Maya [address]anto, [address], [place], [address], 0 16:53:10 CMP, serum or plasma 2019 020 JOHNSON LAGUNA, Maya [address], [address], [place], [address], 0 16:53:10 TSH, ultra-sens itive, serum 2019 020 JOHNSON LAGUNA, Maya [address], [address], [place], [address], 0 16:53:41 lipid panel, serum 2019 020 JOHNSON LAGUNA, Maya [address], [address], [place], [address], 0 16:51:53 CMP, serum or plasma 2018 019 JOHNSON LAGUNA, Maya [address], [address], [place], [address], 9 15:13:26 CBC w/ auto diff 2018 019 JOHNSON LAGUNA, Maya [address]anto, [address], [place], [address], 9 15:13:25 lipid panel, serum 2018 019 Maya CORMIER, [address], [place], [address], 9 15:13:26 Referral physical therapist referral 2020 021 francis 1 [facility], [address], [place], [address], 1 09:45:06 Procedures None recorded. Surgeries None recorded. Imaging MAMMO, screening, bilateral [address] (Imaging), [facility] [address] [place] [address], [address], 1 14:42:51 XR, knee, 3 view [address] (Imaging), [facility] [address], [place], [address], 0 10:57:04 Medication Orders lisinopril 10 mg tablet 2020 021 [facility] [address], [place], [address], 1 15:49:05 albuterol sulfate HFA 90 mcg/actuat ion aerosol inhaler 2019 020 [facility] [address], [place], [address], 0 12:04:47 Tessalon Perles 100 mg capsule 2019 020 [facility] [address], [place], [address], 0 12:04:50 ciprofloxa taty 0.3 % eye drops 2018 019 [facility] [address], [place], [address], 0 16:26:54 amoxicilli n 250 mg/5 mL oral suspension 2018 019 [facility] In [facility], [facility] [address], [place], [address], 0 16:51:28 Patient TargetsNo targets recorded. Patient Instructions Encounter Date Encounter Id Patient Instructions Last Modified By Organization Details Last Modified Time 04/26/2020 [id number] knee pain or injury: care instructions Not available 04/30/2020 09:55:14 04/18/2021 [id number] dash diet: care instructions Not available 04/18/2021 14:36:44 How To Lower Blood Pressure Not available 04/18/2021 14:36:44 Reason for Referral Physical Therapist Referral for Muscle weakness Referring Physician: Derek Cano, Video Games Mechanic, Encounter Date: 04/18/2021 Results Created Date Observation Date Name Description Value Unit Range Abnormal Flag Note LastModifiedBy Organization Detail LastModifiedTime 09/19/1909/20/2020 TSH + free T4, serum TSH 1.500 uIU/m L 0.450- 4.500 Not Available [facility] ([facility]) [address] [place], [address], 09/20/2020 09:38:49 09/19/1909/20/2020 TSH + free T4, serum T4,free(dire ct) 0.97 NG/dL 0.82-1 .77 Not Available [facility] ([facility]) [address] [place], [address], 09/20/2020 09:38:49 09/19/1909/20/2020 CMP, serum or plasm a glucose 97 mg/dL 65-99 Not Available [facility] ([facility]) [address] [place], [address], 09/20/2020 09:38:50 09/19/19 21 09/20/2020 CMP, serum or plasm a BUN 8 mg/dL 6-24 Not Available [facility] ([facility]) [address] [place], [address], 09/20/2020 09:38:50 09/19/1909/20/2020 CMP, serum or plasm a creatinine 0.69 mg/dL 0.57-1 .00 Not Available [facility] ([facility]) [address] [place], [address], 09/20/2020 09:38:50 09/19/19 21 09/20/2020 CMP, serum or plasm a eGFR if nonafricn AM 107 mL/mi n/1.7 3 >59 Not Available [facility] ([facility]) [address] [place], [address], 09/20/2020 09:38:50 09/19/19 21 09/20/2020 CMP, serum or plasm a eGFR if africn AM 123 mL/mi n/1.7 3 >59 Not Available [facility] ([facility]) [address], [place], [address], 09/20/2020 09:38:50 09/19/1909/20/2020 CMP, serum or plasm a BUN/creatini ne ratio 12 9-23 Not Available [facility] ([facility]) [address] [place], [address], 09/20/2020 09:38:50 09/19/1909/20/2020 CMP, serum or plasm a sodium 143 mmol/ L 134-14 4 Not Available [facility] ([facility]) [address] [place], [address], 09/20/2020 09:38:50 09/19/1909/20/2020 CMP, serum or plasm a potassium 4.0 mmol/ L 3.5-5. 2 Not Available [facility] ([facility]) [address] [place], [address], 09/20/2020 09:38:50 09/19/19 21 09/20/2020 CMP, serum or plasm a chloride 104 mmol/ L 96-106 Not Available [facility] ([facility]) [address] [place], [address], 09/20/2020 09:38:50 09/19/19 21 09/20/2020 CMP, serum or plasm a carbon dioxide, total 24 mmol/ L 20-29 Not Available [facility] ([facility]) [address] [place], [address], 09/20/2020 09:38:50 09/19/19 21 09/20/2020 CMP, serum or plasm a calcium 9.4 mg/dL 8.7-10 .2 Not Available [facility] ([facility]) [address] [place], [address], 09/20/2020 09:38:50 09/19/19 21 09/20/2020 CMP, serum or plasm a protein, total 6.9 g/dL 6.0-8. 5 Not Available [facility] ([facility]) [address] [place], [address], 09/20/2020 09:38:50 09/19/19 21 09/20/2020 CMP, serum or plasm a albumin 4.2 g/dL 3.8-4. 8 Not Available [facility] ([facility]) [address] [place], [address], 09/20/2020 09:38:50 09/19/19 21 09/20/2020 CMP, serum or plasm a globulin, total 2.7 g/dL 1.5-4. 5 Not Available [facility] ([facility]) [address] [place], [address], 09/20/2020 09:38:50 09/19/19 21 09/20/2020 CMP, serum or plasm a A/G ratio 1.6 1.2-2. 2 Not Available [facility] ([facility]) [address] [place], [address], 09/20/2020 09:38:50 09/19/19 21 09/20/2020 CMP, serum or plasm a bilirubin, total 0.2 mg/dL 0.0-1. 2 Not Available [facility] ([facility]) [address] [place], [address], 09/20/2020 09:38:50 09/19/19 21 09/20/2020 CMP, serum or plasm a alkaline phosphatase 131 IU/L 39-117 above high normal Not Available [facility] ([facility]) [address] [place], [address], 09/20/2020 09:38:50 09/19/19 21 09/20/2020 CMP, serum or plasm a AST (SGOT) 17 IU/L 0-40 Not Available [facility] ([facility]) [address] [place], [address], 09/20/2020 09:38:50 09/19/19 21 09/20/2020 CMP, serum or plasm a ALT (SGPT) 23 IU/L 0-32 Not Available [facility] ([facility]) [address] [place], [address], 09/20/2020 09:38:50 09/19/19 21 09/20/2020 album in/cr eatin ine, mass ratio , urine creatinine, urine 65.3 mg/dL not estab. Not Available [facility] ([facility]) [address] [place], [address], 09/20/2020 09:38:51 09/19/19 21 09/20/2020 album in/cr eatin ine, mass ratio , urine albumin, urine <3.0 ug/mL not estab. Beth ified by lissa florez sis Not Available [facility] ([facility]) [address], [place], [address], 09/20/2020 09:38:51 09/19/19 21 09/20/2020 album in/cr eatin ine, mass ratio , urine alb/creat ratio <5 mg/g_ creat 0-29 Rachel l: 0 - 29 Moder ately incre ased: 30 - 300 Sever kane incre ased: >300 Not Available [facility] ([facility]) [address], [place], [address], 09/20/2020 09:38:51 09/19/19 21 09/20/2020 vitam in B12 + folat e, serum or blood vitamin B12 478 pg/mL 232-12 45 Not Available [facility] ([facility]) [address] [place], [address], 09/20/2020 09:38:51 09/19/1909/20/2020 vitam in B12 + folat e, serum or blood folate (folic acid), serum 12.6 NG/mL >3.0 A serum folat e leonidas ntrat ion of less than 3.1 ng/mL is consi dered to repre sent clini presley defic iency . Not Available [facility] ([facility]) [address], [place], [address], 09/20/2020 09:38:51 09/19/1909/20/2020 vitam in D, 25-hy [...] um and D. Kiel sherwood [place]: The [facility] Press . 2. Hi glover MF, Jerad isabel [place], Iron off-F errar i CARDENAS, et al. Evalu ation , treat ment, and preve ntion of vitam in D defic iency : an Endoc rine Socie ty clini presley pract ice guide line. JCEM. 2010; 96(7) :1911 -30. Not Available [facility] ([facility]) [address], [place], [address], 09/20/2020 09:38:52 04/26/20 20 04/26/2020 XR, knee, 3 view No observ ation record ed. [address], [address], 04/27/2020 14:51:45 05/02/20 20 04/26/2020 XR, knee, 3 view No observ ation record ed. [address] (Imaging) [address] [place] [address], [address], 05/02/2020 17:19:46 05/05/20 20 05/04/2020 CT, abdom en + pelvi s, w/ contr ast No observ ation record ed. [address], [address], 05/07/2020 11:33:29 05/15/20 20 05/04/2020 CT, abdom en + pelvi s, w/ contr ast No observ ation record ed. Not Available 2019 14:33:44 03/16/20 21 03/16/2021 imagi ng/di agnos tic resul t No observ ation record ed. [address] [facility] [address] [place], [address], 03/20/2021 17:34:17 03/19/20 21 03/19/2021 XR, chest No observ ation record ed. [address] [place], [address], 03/20/2021 17:34:35 03/19/20 21 03/19/2021 CT, abdom en + pelvi s, w/o contr ast No observ ation record ed. [address] [place], [address], 03/20/2021 17:34:56 03/21/20 21 03/21/2021 CT, abdom en + pelvi s, w/ contr ast No observ ation record ed. [address] [place], [address], 03/21/2021 14:07:46 03/21/20 21 03/21/2021 US, duple x, venou s, extre mity, compl ete No observ ation record ed. [facility] [place], [address], 03/26/2021 16:23:22 03/21/20 21 03/21/2021 US, duple x, venou s, lower extre mity No observ ation record ed. [facility] [place], [address], 03/26/2021 16:23:46 03/21/20 21 03/21/2021 US, duple x, venou s, lower extre mity No observ ation record ed. [facility] [address] [facility], [place], [address], 03/26/2021 16:24:06 03/23/20 21 03/23/2021 XR, chest No observ ation record ed. [facility] [address] [facility], [place], [address], 03/26/2021 16:27:15 03/31/20 21 03/31/2021 oxyge n evalu ation * No observ ation record ed. Not Available 2020 12:47:00 04/17/20 21 04/17/2021 US, pelvi s, compl ete No observ ation record ed. [facility] [address], [place], [address], 04/25/2021 14:36:38 04/17/20 21 04/17/2021 US, pelvi s, compl ete No observ ation record ed. [facility] [address], [place], [address], 04/25/2021 14:42:09 04/19/20 21 04/17/2021 US, pelvi s, compl ete No observ ation record ed. [facility] [address], [place], [address], 04/25/2021 14:44:46 Result Notes None recorded. Problems Name Problem SNOMED Code Status Onset Date Resolution Date Notes Provider Name and Address Organization Details Recorded Time History of endometrios is [id number] 4107 Active 2018 Sena Vick MA [facility], [place] - S[facility] 9 14:46:16 Increased blood pressure 92304877 Active 2018 JOSIAS SHOEMAKER Attn: Zora rubio,[address] [facility], [place], [address], [facility] - [facility] 9 15:11:46 Pelvic mass 44584480 Active 2020 JOSIAS SHOEMAKER Attn: Zora rubio,[address] [facility], [place], [address], [facility] - [facility] 1 14:36:25 Essential hypertensio n 93862229 Active 2020 JOSIAS SHOEMAKER Attn: Zora rubio,[address] [facility], [place], [address], [facility] - [facility] 1 14:36:29 Problem Notes None recorded. Procedures Surgical History Date Name Laterality Status Provider Name and Address Organization Details Recorded Time 2020 esophagogastroduodenoscopy completed Charles Medrano MA [facility] 14:17:24 2020 colonoscopy completed Juanita Medrano MA [facility] 1 14:17:35 2019 Date of Last Pap Smear completed Juanita Medrano MA [facility] 1 14:10:50 cholecystectomy completed Sena Vick MA [place] - [facility] 9 14:46:32 Imaging Results Imaging Date Name Status LastModified by [facility]count includes the [facility] Details LastModified Time 04/26/2020 XR, knee, 3 view completed [address], [address], 04/27/2020 14:51:45 04/26/2020 XR, knee, 3 view completed [address] (Imaging) [address] [place] [address], [address], 05/02/2020 17:19:46 05/04/2020 CT, abdomen + pelvis, w/ contrast completed [address], [address], 05/07/2020 11:33:29 05/04/2020 CT, abdomen + pelvis, w/ contrast completed Information not available 05/15/2020 14:33:44 03/16/2021 imaging/diagno stic result completed [address] [place], [address], 03/20/2021 17:34:17 03/19/2021 XR, chest completed [address] [place], [address], 03/20/2021 17:34:35 03/19/2021 CT, abdomen + pelvis, w/o contrast completed [address] [place], [address], 03/20/2021 17:34:56 03/21/2021 CT, abdomen + pelvis, w/ contrast [facility] [place], [address], 03/21/2021 14:07:46 03/21/2021 US, duplex, venous, extremity, complete completed [facility] [place], [address], 03/26/2021 16:23:22 03/21/2021 US, duplex, venous, lower extremity completed [facility] [place], [address], 03/26/2021 16:23:46 03/21/2021 US, duplex, venous, lower extremity completed [facility] [place], [address], 03/26/2021 16:24:06 03/23/2021 XR, chest completed [facility], [place], [address], 03/26/2021 16:27:15 03/31/2021 oxygen evaluation* completed Information not available 04/02/2021 12:47:00 04/17/2021 US, pelvis, complete [facility] [address], [place], [address], 04/25/2021 14:36:38 04/17/2021 US, pelvis, complete [facility] [address], [place], [address], 04/25/2021 14:42:09 04/17/2021 US, pelvis, complete [facility] [address], [place], [address], 04/25/2021 14:44:46 Procedure Notes None recorded. Medical [...] Updated DateTime 9 165.1 cm 33.1 kg/m2 90456.8 8 g 98 [degF] 63 /min 99 % 99 % 146 mm[Hg] 98 mm[Hg] Sena Vick MA [facility] 9 14:51:25 Date Recorded Body height Body mass index (BMI) Body weight Body temperature Heart rate Oxygen saturation Oxygen saturation in Arterial blood by Pulse oximetry Systolic blood pressure Diastolic blood pressure Provider Name and Address Organization Details Last Updated DateTime 0 165.1 cm 34.5 kg/m2 41618.3 2 g 98.7 [degF] 92 /min 98 % 98 % 128 mm[Hg] 82 mm[Hg] Eliana Ku [place] - [facility] 0 16:33:13 Date Recorded Body height Provider Name an d Address Organization Details Last Updated DateTime 04/26/2020 165.1 cm Caro Resendiz MA [facility] 2019 12:04:33 Date Recorded Body height Body temperature Body mass index (BMI) Body weight Heart rate Oxygen saturation Oxygen saturation in Arterial blood by Pulse oximetry Systolic blood pressure Diastolic blood pressure Provider Name and Address Organization Details Last Updated DateTime 165.1 cm 93.7 [degF] 35.7 kg/m2 74108.8 7 g 75 /min 99 % 99 % 192 mm[Hg] 110 mm[Hg] Juanita Medrano MA [facility] 14:18:53 Date Recorded Body height Provider Name an d Address Organization Details Last Updated DateTime 04/18/2021 165.1 cm Caro Resendiz MA [facility] 2020 11:27:13 Social History Question Answer Notes LastModified by Organizat ion Details LastModified Time Tobacco Smoking Status Never Smoker Sena Vick MA [facility], [facility] 03/25/2019 14:48:36 Do You Have An [...] Information not available 09/19/2020 What Type Of Clothes Marker Do You Use? None Information not available [...] Or The Highest Degree You Have Received? TI26391-5 Information not available 09/19/2020 Do You Have An Electrostatic Air Filter? No Information not available 09/19/2020 Who Is Your Employer? [employer] Information not available 09/19/2020 What Is Your Occupation? [employer] Information not available 09/19/2020 How [...] available 09/19/2020 Where Do You Live? Other [facility] Information not available 09/19/2020 Live Alone Or [...] Do You Have A Medical Power Of Insurance Biller? No Information not available 09/19/2020 Do You [...] Anxious, Or Unable To Sleep At Night)? [id number] Information not available 09/19/2020 Do You Use [...] Response Coronary Artery Disease N Other N Atrial Fibrillation N High Blood Pressure N Kidney or Bladder Problems N Thyroid Problems N GI Problems N Depression N COPD N Blood Clots N Skin Problems N Anemia N Heart Attack (AR) N Anxiety Disorder N Diabetes N Muscle, [...] SNOMED-CT Code Diagnosis ICD10 Code Diagnosis Note [id number] JOSIAS SHOEMAKER [facility] [address] [place] [address] 03/25/2019 14:28:59 03/28/2019 08:57:21 Eye infection 173086996 H44.009 Kourtney is a 44 YO F presenting for right eye irritation x 1 week. On exam clear discharge is noted on right eye. EOM intact. no vision abnormalit ies. right cheek slightly erythemato us but not swollen - abx eyedrops- amoxicilli n 500mg x 7 days- f/u next week to make- opthalmolo gy if not cleared Increased blood pressure 92049130 R03.0 Patient has a family history of cardiac before age 50 in 3 family members. Today her BP 146/98 - take bp at home x 1 week- come back for BP check next week- checking labs for other causes of elevated BP and cardiac risk factors- kidney, cholestero l [id number] JOSIAS SHOEMAKER [facility] [address] [place] [address] 08/12/2019 16:25:31 08/15/2019 11:22:56 Cholesterol screening 298366357 Z13.220 Elevated blood-pressure reading without diagnosis of hypertension 331333127 R03.0 Upper resp iratory infection 31305694 J06.9 patient presents with uri. She is feeling better but continues to have a cough. afebrile on exam. - teslorrie layton prn- honey tea- f/u if not improving Wheezing 86651918 R06.2 [id number] JOSIAS SHOEMAKER [facility] [address] [place] [address] 04/26/2020 12:03:33 04/30/2020 10:57:04 Pain in right knee 9881140622 95084 M25.561 right knee pain x 2 weeks after running into table. Reports some bruising and instabilit y. pain comes and goes and today is 11/17. - RICE- xr- knee brace [id number] JOSIAS SHOEMAKER [facility] [address] [place] [address] 09/19/2020 14:01:34 09/20/2020 20:12:11 Essential hypertension 58975620 I10 BP 192/110 and 160/110 on recehck [...] for BP is <140/90 Intolerant of cold 87769 000 R68.89 Patient c/o being cold, depressed mood, dr skin. Will run labs and f/u. Screening mammography 24 975138 Z12.31 never had mammogram. no breast complaints [id number] JOSIAS SHOEMAKER [facility] [address] [place] [place] [address] 04/18/2021 09:16:21 04/20/2021 10:20:26 Muscle weakness 49101842 M62.81 Patient was hospitaliz ed for 20 or so days in ICU with COVID pneumonia. She was released three weeks ago and is building up her strength again. Patient is still having some weakness sitting to standing and sometimes with walking. She lost >15 lbs while in hospital. She would benefit from home PT. Pneumonia caused by SARS-CoV-2 [id number] 77753627 J12.82 She was hospitaliz ed from - at [facility] . While hsoitalize d she also has internal bleeding. She weaned herself off oxygen on Thursday without supervisio n. States oxygen is 96-97 when at rest and 94-95 when walking slowly. denies CP but states she does cough and get sob when walking. Respiratory failure 4096 28327 J96.90 Patient had respirator y failure from COVID pneumonia. She was hospitaliz ed from 10-02 at [facility] . While hospitaliz ed she also [...] month- f/u with pulmonolog ist Essential hypertension 68618063 I10 Patient states BP at hospital and [...] goal for BP is <140/90 Pelvic mass 62243738 R19 .00 During hospitaliz ation they found [...] ID Guarantor Name 03/25/2019 1 [place] [id number] Kourtney Sohan [id number] Kourtney Cook 08/12/2019 1 [place] [id number] Kourtney Cook [id number] Kourtney Cook 04/26/2020 1 [place] [id number] Kourtney Cook [id number] Kourtney Cook 09/19/2020 1 [place] [id number] Kourtney Cook [id number] Kourtney Parry 04/18/2021 1 [facility] [id number] Tony Parry [id number] Kourtney Parry Notes Date Note Type Note [...] her vision. JOSIAS SHOEMAKER Attn: Accounting,[address] [place], [address], [facility] 03/28/2019 05:53:11 08/12/2019 text/html Upper Respirator y [...] with URI JOSIAS SHOEMAKER Attn: Accounting,[address] [place], [address], [facility] 08/14/2019 04:33:22 04/26/2020 text/html KneeReported bypatient.Location:rig ht [...] part of her knee where the bone is . She reports some swelling and bruising. leg wants to give out.has not been seen by provider yet. ibuprofen 400 mg once every few days. pain today 4/10, pain waxes and wanes. feels like a pulling sensation. 2014 mri of same knee showed mild effusion and edema. She is working from home and able to ice and elevate. JOSIAS SHOEMAKER Attn: Accounting,[address] [facility], [place], [address], [facility] 04/30/2020 09:55:36 09/19/2020 text/html Kourtney is a 45 Y O F here for I'm always cold She saw Dr Bueno in [place] for RUQ pain. EGD normal and colonoscopy also done but waiting on results. Was told it may be sphincter of anh dysfunction. does say has dry skin, depressed mood, feeling cold all the time, hard to lose weight. JOISAS SHOEMAKER Attn: Accounting,[address] [facility], [place], [address], [facility] 09/19/2020 15:53:57 04/18/2021 text/html Kourtney is a 46 Y O F pmhxz hypertension,obesity, COVID pneumonia complicated by resp failure and hemmorrhage presenting for f/u released 3 weeks ago from [facility]. She was hospitalized from ThursdayMar 11-. [...] outher amado. JOSIAS SHOEMAKER Attn: Accounting,[address] [place], [address], [facility] 04/18/2021 14:36:49 OBGyn Episode No OBEpisode recorded.
[2024-12-16 13:23] VITALS: BP 203/98; PULSE 86; RESP 16; TEMP 36.4; O2SAT 100
--- OUTSIDE RECORDS SUMMARY | 2024-12-16 14:12 | XMS_ITS | Clinical Summary ---
Author Organization [facility] Address [address] [place] [address] Care Team Providers Care Computer Networking Instructor Adjunct Name Role Phone Unavailable Primary Care Provider Unavailabl e Source Comments [facility],non-owned Affiliates and Associated Physician Practices is amultiple site organization consisting of ambulatory clinics and hospital sitesin [place], [place], [place] and [place]. This disclosure is being madepursuant to the Care Everywhere program and may not contain all information available regarding this patient. Last updated 18.[facility] [employer] Social History Tobacco Use Types Packs/Day Years Used Date Smoking Tobacco: Never Alcohol Use Standard Drinks/Week Comments No 0 (1 standard drink = 0.6 oz pur e alcohol) Comments Unknown Sex and Gender Information Value Date Recorded Sex Assigned at Not on file Legal Sex Female 6:42 PM CONVEYOR LINE BATTERY CHARGER Gender Identity Not on file Sexual Orientation Not on file Last Filed Vital Signs Vital Sign Reading Time Taken Comments Blood Pressure 154/99 06/13/2013 5:49 PM CONVEYOR LINE BATTERY CHARGER Pulse 84 06/13/2013 5:49 PM CONVEYOR LINE BATTERY CHARGER Temperature 36.8 C (98.3 F) 06/13/2013 5:49 PM CONVEYOR LINE BATTERY CHARGER Respiratory Rate 16 06/13/2013 5:49 PM CONVEYOR LINE BATTERY CHARGER Oxygen Saturation 99% 06/13/2013 5:49 PM CONVEYOR LINE BATTERY CHARGER Inhaled Oxygen Concentration - - Weight 81.6 kg (180 lb) 06/13/2013 5:49 PM CONVEYOR LINE BATTERY CHARGER Height 165.1 cm (5' 5 ) 06/13/2013 5:49 PM CONVEYOR LINE BATTERY CHARGER Body Mass Index 29.95 06/13/2013 5:49 PM CONVEYOR LINE BATTERY CHARGER Plan of Treatment Health Maintenance Due Date [...]
--- OUTSIDE RECORDS SUMMARY | 2024-12-16 14:12 | XMS_ITS | Clinical Summary ---
Author Organization [facility] Address [address] [place] [id number] Care Team Providers Care Air Bag Stripper Name Role Phone Sree Leonardo MD Primary Care Provider [phone] Allergies No known active allergies Medications halobetasol 0.05 % cream Apply 1 each topically daily. 1 Active ondansetron (ZOFRAN-ODT) 4 MG disintegrating tablet Take 1 tablet (4 mg total) by mouth every 8 (eight) hours as needed. 20 tablet 4 Active Active Problems Problem Noted Date Diagnosed Date Acute respiratory failure ([facility]) 02/2021 Pneumonia due to COVID-19 virus 03/12/2021 [...] Comments Blood Pressure 163/91 08/17/2023 12:15 PM CRUDE OIL TREATER Pulse 116 08/17/2023 12:15 PM CRUDE OIL TREATER Temperature 37.5 C (99.5 F) 08/17/2023 12:15 PM CRUDE OIL TREATER Respiratory Rate 18 08/17/2023 12:15 PM CRUDE OIL TREATER Oxygen Saturation 97% 08/17/2023 12:15 PM CRUDE OIL TREATER Inhaled Oxygen Concentration - - Weight 88.5 kg (195 lb) 08/17/2023 12:15 PM CRUDE OIL TREATER Height 165.1 cm (5' 5 ) 08/17/2023 12:15 PM CRUDE OIL TREATER Body Mass Index 32.45 08/17/2023 12:15 PM CRUDE OIL TREATER Plan of Treatment Health Maintenance Due Date [...] and discharge planning General No Yasmeen Barba, RN TRAVELINGglass cleaning machine tender [facility] Advance Directives * Full Code (Latest Code Status on File) Date Activated Date Inactivated Comments 03/16/2021 4:16 AM 03/31/2021 3:34 PM * Full Code Date Activated Date Inactivated Comments 03/11/2021 2:32 PM 03/15/2021 9:09 PM Care Teams Air Bag Stripper Relationship Specialty Start Date End Date Sree Leonardo MD [address] [address] PCP - General FAMILY PRACTICE 08/17/23
--- OUTSIDE RECORDS SUMMARY | 2024-12-16 14:12 | XMS_ITS | Clinical Summary ---
Author Organization [facility] Address [address] [place] [address] Care Team Providers Care Principal Java Developer Name Role Phone Sharmaine Dukes Primary [...] patient's age to complete this topic Insurance [facility] CHOICE PLUS Care Teams Principal Java Developer Relationship Specialty Start Date End Date Sharmaine Dukes PA PCP - General Physician Billing Representative 04/05/21 Radha Carney, [facility] [address] [facility] [id number] Medical Lab Technician Infectious Diseases 07/14/22
--- OUTSIDE RECORDS SUMMARY | 2024-12-16 14:12 | XMS_ITS | Referral Summary ---
Author Organization [facility] Address [address] [place] [address] Care Team Providers Care Coordinator Mining Products Name Role Phone Sharmaine Dukes Primary Care [...] Plan of Treatment Not on file Insurance [facility] CHOICE PLUS Care Teams Coordinator Mining Products Relationship Specialty Start Date End Date Sharmaine Dukes PA PCP - General Physician District Extension Service Agent 04/05/21 Radha Carney [facility] [address] [facility] [id number] Mop Handle Assembler Infectious Diseases 07/14/22
--- NOTE | 2024-12-16 14:39 | ED.EXTPRO ---
HPI - Extremity Problem General Chief complaint: Extremity Problem,Nontraumatic Stated complaint: infected toe Time Seen by Provider: 12/16/24 13:59 History of Present Illness HPI Narrative: 49-year-old female presenting to the emergency depart with concern for right great toe infection. She states that it started in November and she has been taking topical mupirocin and finished a course of oral doxycycline November. She has a public information coordinator that she has not followed up with but has an appointment on Thursday. Denies any purulent drainage, fever, chills. Was otherwise in her normal state of health. No injury that she recalls. No history of diabetes. Related Data Home Medications ?Medication ?Instructions ?Recorded ?Confirmed ?Last Taken ?Type red beet 250 mg-sour orta 1 tablet PO DAILY 10/12/23 10/03/24 Unknown History extract 0.5 mg chewable tablet cholecalciferol (vitamin D3) 50 50 mcg PO DAILY 10/03/24 10/03/24 Unknown History mcg (2,000 unit) capsule Allergies Allergy/AdvReac Type Severity Reaction Status Date / Time lisinopril Allergy Mild Dizziness Verified 10/03/24 09:42 bupivacaine Allergy Unknown Hypotension Verified 10/03/24 09:42 amlodipine AdvReac Intermediate Nausea Verified 10/03/24 09:42 morphine AdvReac Vomiting Verified 10/03/24 09:42 BUPIVACAINE HCL AdvReac Intermediate HR DROP Uncoded 10/03/24 09:42 Review of Systems Review of Systems: As reviewed above in HPI PMFSH Past Medical History Medical History Toe swelling Anemia COVID-19 Pneumonia due to COVID-19 virus Weakness Sphincter of Oddi dysfunction Surgical History Surgical History Hx of laparoscopy multiple for endometriosis Hx of tonsillectomy Hx of section Hx laparoscopic cholecystectomy 12/04/[address] [facility] [address] houser Family History Family History Mother Hypertension Depression Arthritis Father Patient's father is Family history of cardiovascular disease Acute myocardial infarction Sibling Family history of cardiovascular disease COPD (chronic obstructive pulmonary disease) Sibling Family history of [place] (myocardial infarction) COVID-19 Acute myocardial infarction Grandparent Family history of malignant neoplasm of breast Family history of cardiovascular disease Other Family history of heart disease in male family member before age 55 Family history of malignant neoplasm of breast in first degree relative Social History Social History Smoking status: Never smoker Second hand tobacco smoke exposure: Yes Alcohol intake: current Alcohol use details: occassionally Substance use: never Substance use type: does not use and marijuana Other substance usage details: uses edibles occassionally Do You Feel Safe in your Home?: Yes Lack of Transportation: No Lack of Food: Never True Current Housing: I Have Housing Concerned About Future Housing: No Difficulty Paying Gas/Electric Bills: No Difficulty Paying for Meds: No Currently Unemployed: No Education: High School Diploma/GED Difficulty w/ Childcare or Family Care: No Living arrangements: with family Occupation/Education: occupation 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 Mucous membranes moist. NECK: Supple. CHEST: [Clear to auscultation. No respiratory distress.] HEART: [Regular rate and rhythm]. No murmur heard. [Normal peripheral pulses.] ABDOMEN: [Soft, nondistended], [nontender], [No rigidity or guarding] EXTREMITIES: Normal range of motion. [No edema.] Paronychia obviously over the right great toe on the medial aspect, minimal purulent expression is noted., mild overlying skin erythema but no significant tenderness to palpation or restricted range of motion. Isolated to the medial and top of the left great toe and nail fold. No bleeding, no punctures or ulcerations. No tenderness with the interphalangeal joints or any ecchymoses. SKIN: Warm, dry, no rash. NEURO: [No focal deficits]. Alert and oriented [x3.] PSYCH: [Normal mood and affect.] Course Vital Signs Vital signs: Vital Signs Temperature 36.4 C 12/16/24 13:23 Pulse Rate 86 12/16/24 13:23 Respiratory Rate 16 12/16/24 13:23 Blood Pressure 203/98 H 12/16/24 13:23 Pulse Oximetry 100 12/16/24 13:23 Temperature 36.4 C 12/16/24 13:23 Pulse Rate 86 12/16/24 13:23 Respiratory Rate 16 12/16/24 13:23 Blood Pressure 203/98 H 12/16/24 13:23 Pulse Oximetry 100 12/16/24 13:23 MDM - Extremity (Nontraumatic) MDM Narrative Medical decision making narrative: 49-year-old female presenting to the emergency room with right great toe paronychia for several weeks. Paronychia obviously over the right great toe on the medial aspect, minimal purulent expression is noted., mild overlying skin erythema but no significant tenderness to palpation or restricted range of motion. Isolated to the medial and top of the left great toe and nail fold. No bleeding, no punctures or ulcerations. No tenderness with the interphalangeal joints or any ecchymoses. Patient has 2+ pulses and warm extremities, no signs of injury. Paronychia was able to be easily expressed with direct pressure manipulation and there has been release of purulent material and decrease and size of the toe with immediate relief of patient's symptoms. Patient felt significantly improved afterwards. Discussed with the patient's that given that her wound is now open to the air she does not need any further incision and drainage but she does need repeat antibiotics and follow-up with her public information coordinator. She was given a prescription for Augmentin and safely discharged with referral back to her public information coordinator with an appointment on Thursday. Patient's questions were answered and she was given instructions on how to care for paronychia. Patient's triage vital signs do show elevated blood pressure but this is asymptomatic and not related to her visit today and does not need further workup, referred back to her PCP. Discharge Plan Discharge Clinical Impression: Paronychia of great toe Patient Disposition: Home Condition: Stable Instructions: Antibiotic Form, Paronychia (ED) Additional Instructions: We opened up the paronychia of your toe here and allowed some pus to drain. No other signs of deep space infection or acute concern. We will start your on oral antibiotics for the next 7 days. Take Epsom foot soaks and warm compresses several times a day for pain and swelling. Follow-up with your public information coordinator. Return with any emergent concerns. Patient Language: Polish Prescriptions: New amoxicillin-pot clavulanate 875-125 mg tablet 1 tablet PO Q12H 7 Days Qty: 14 0RF No Action red beet-sour orta extract 250-0.5 mg tablet,chewable 1 tablet PO DAILY cholecalciferol (vitamin D3) 50 mcg (2,000 unit) capsule 50 mcg PO DAILY losartan 25 mg tablet 25 mg PO DAILY Qty: 90 0RF Follow-up/Referrals: Sree Leonardo MD [Primary Care Provider] - Time of Disposition: 14:26
[2024-12-16 15:08] VITALS: BP 175/77; PULSE 88; RESP 16; TEMP 36.6; O2SAT 99
== END 2024-12-16 15:08 | disposition home or self-care (01) ==
PROVIDERS: Emergency Provider Student in an Organized Health Care Education/Training Program; PCP Family Medicine
DX: L03.031 Cellulitis of right toe (principal)
CPT/HCPCS: 99283

== ENCOUNTER 2025-05-13 12:27 | Emergency (ER) | payer OTHER, SELFPAY ==
[2025-05-13 12:39] VITALS: BP 160/83; PULSE 84; RESP 18; TEMP 36.6; O2SAT 98
--- NOTE | 2025-05-13 12:57 | ED_ITS ---
HPI - Extremity Problem General Chief complaint: Extremity Problem,Nontraumatic Stated complaint: Low Back/Right Knee Pain patient presents to the [facility] with complaints of pain across the lower back, pain and to the right hip and down the right side of thigh into the outside of her right knee that began over the last several days. Patient noted history of sciatica in usually does get a flare up of this type of pain when the weather changes. Patient does note this is slightly different from her normal and is down the side of the thigh versus the back of the thigh. Patient noted she does walk daily but has not changed any to rain or mileage and how much she is walking. Denies numbness, tingling, urinary symptoms, or rash. Related Data Home Medications ?Medication ?Instructions ?Recorded ?Confirmed ?Last Taken ?Type red beet 250 mg-sour orta 1 tablet PO DAILY 10/12/23 10/03/24 Unknown History extract 0.5 mg chewable tablet cholecalciferol (vitamin D3) 50 50 mcg PO DAILY 10/03/24 Unknown History mcg (2,000 unit) capsule Allergies Allergy/AdvReac Type Severity Reaction Status Date / Time bupivacaine AdvReac Severe Hypotension Verified 05/13/25 12:50 amlodipine AdvReac Intermediate Nausea Verified 05/13/25 12:50 lisinopril AdvReac Intermediate Dizziness Verified 05/13/25 12:50 morphine AdvReac Vomiting Verified 05/13/25 12:50 Review of Systems Constitutional: Constitutional: Reports as per HPI, Denies chills, Denies fatigue, Denies fever(s) and Denies weakness Eyes: Eyes: Reports no additional eye complaints ENT: Reports system reviewed and no additional complaints, except as documente d Cardiovascular: Cardiovascular: Reports no additional cardiovascular complaints Respiratory: Respiratory: Reports no additional respiratory complaints Gastrointestinal: Gastrointestinal: Reports as per HPI, Denies abdominal pain, Denies diarrhea, Denies nausea and Denies vomiting Genitourinary: Genitourinary: Reports as per HPI, Denies pelvic pain, Denies flank pain and Denies urinary incontinence Musculoskeletal: Musculoskeletal: Reports as per HPI, Reports back pain, Reports arthralgias, Denies joint swelling and Reports muscle cramps Integumentary/Breasts: Skin/Breast: Reports as per HPI, Denies erythema, Denies rash and Denies skin ulcer Neurologic: Reports as per HPI, Denies headache(s), Denies numbness and Denies weakness Psychiatric: Psychiatric: Reports no additional psychiatric complaints Endocrine: Endocrine: Reports no additional endocrine complaints Hematologic/Lymphatic: Hematologic/Lymphatic: Reports no additional hematologic/lymphatic complaints Allergic/Immunologic: Allergic/Immunologic: Reports no additional allergic/immunologic complaints PMFSH Past Medical History Medical History Toe swelling Anemia COVID-19 Pneumonia due to COVID-19 virus Weakness Sphincter of Oddi dysfunction Surgical History Surgical History Hx of laparoscopy multiple for endometriosis Hx of tonsillectomy Hx of section Hx laparoscopic cholecystectomy 12/04/2009 at [facility] with Dr. houser Family History Family History Mother Hypertension Depression Arthritis Father Patient's father is Family history of cardiovascular disease Acute myocardial infarction Sibling Family history of cardiovascular disease COPD (chronic obstructive pulmonary disease) Sibling Family history of [place] (myocardial infarction) COVID-19 Acute myocardial infarction Grandparent Family history of malignant neoplasm of breast Family history of cardiovascular disease Other Family history of heart disease in male family member before age 55 Family history of malignant neoplasm of breast in first degree relative Social History Social History Smoking status: Never smoker Second hand tobacco smoke exposure: Yes Alcohol intake: current Alcohol use details: occassionally Substance use: never Substance use type: does not use and marijuana Other substance usage details: uses edibles occassionally Do You Feel Safe in your Home?: Yes Lack of Transportation: No Lack of Food: Never True Current Housing: I Have Housing Concerned About Future Housing: No Difficulty Paying Gas/Electric Bills: No Difficulty Paying for Meds: No Currently Unemployed: No Education: High School Diploma/GED Difficulty w/ Childcare or Family Care: No Living arrangements: with family Occupation/Education: occupation 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 Gender identity (if verbalized by the patient): Female Exam Const: General: healthy appearing and no acute distress Nutritional Gurpreet earance: well nourished Orientation/consciousness: patient oriented x3 Limitations: no limitations Resp: Effort & Inspection: normal respiratory effort Auscultation: clear to auscultation bilaterally Cardio: Rate: regular rate Rhythm: regular rhythm GI: Inspection: non-distended GI Palp: Yes Soft to palpation, No Tenderness to palpation present (GI), No Guarding due to palpation present (GI), No Rigid due to palpation and No Rebound tenderness present Auscultation: normal bowel sounds : General: Yes bladder normal to palpation and Yes no CVA tenderness Back/Spine/Pelvis: Back: no CVA tenderness Other: No lumbar spinal tenderness. Mild bilateral paravertebral lumbar spinal tenderness. Muscle spasm noted to right buttock. Right SI tenderness. Right IT band tenderness Skin: General skin exam: normal color Rashes: no rashes Wounds: no wounds Neuro: General: patient oriented x3 and moves all extremities Speech: normal speech Gait exam (Neuro): Normal gait present Extrem: Right lower extremity: hip/thigh Details: normal to inspection, tenderness Location: of the hip and of the proximal upper leg and normal ROM; inspection normal, no swelling, ROM normal, no abrasions, no lacerations, no ecchymosis, no crepitus, no foreign bodies, no penetrating wound, no deformity and no unusual warmth Psych: Mental Status: mental status grossly normal Affect: normal affect Attitude: cooperative Course Course Level of Care: Express Care Visit Vital Signs Vital signs: Vital Signs Temperature 97.9 F 05/13/25 12:39 Pulse Rate 84 05/13/25 12:39 Respiratory Rate 18 05/13/25 12:39 Blood Pressure 160/83 H 05/13/25 12:39 Pulse Oximetry 98 05/13/25 12:39 Oxygen Delivery Room Air 05/13/25 12:39 Temperature 97.9 F 05/13/25 12:39 Pulse Rate 84 05/13/25 12:39 Respiratory Rate 18 05/13/25 12:39 Blood Pressure 160/83 H 05/13/25 12:39 Pulse Oximetry 98 05/13/25 12:39 Oxygen Delivery Room Air 05/13/25 12:39 MDM - Extremity (Nontraumatic) MDM Narrative Medical decision making narrative: patient reports chronic flare up of problems similar to previous episodes will use steroids and Flexeril ( patient has had this medication in the past). The patient was evaluated by myself in the express care. History is obtained from patient who is an independent historian and physical exam was performed. Available medical records were reviewed at this time. Exam findings show no acute concerns or changes; patient is non-toxic appearing and is in no distress. Patient is appropriate for outpatient treatment and follow-up. I have evaluated and discussed social determinants of health with the patient that could potentially impact subsequent diagnosis and treatment plans. Differential diagnosis and treatment plan were discussed with the patient. Patient agrees with discussion and after shared medical decision making agrees with plan of care. All questions were answered to the patient's satisfaction. Differential Diagnosis Differential diagnosis: Likely cellulitis, lower extremity edema, deep vein thrombosis of lower extremity and other (IT band, sciatica ) Medical Records Attestation: I reviewed the patient's medical records. Discharge Plan Discharge Clinical Impression: Low back pain radiating to right leg, Iliotibial band syndrome Patient Disposition: Home Condition: Stable Instructions: Antibiotic Form, Lumbar Radiculopathy (ED), Lower Back Exercises (ED) Additional Instructions: Take pain medications as directed. Take ibuprofen as directed to decrease inflammation and to help pain. Take cyclobenzaprine/Flexaril (muscle relaxer) as directed. Do not drink, drive, operate machinery, or do anything dangerous while taking this medication Exercise:Combine aerobic exercise, like walking or swimming, with specific exercises to keep the muscles in your back and abdomen strong and flexible. Proper Lifting:Be sure to lift heavy items with your legs, not your back. Do not bend over to pick something up. Keep your back straight and bend at your knees. Weight:Maintain a healthy weight. Being overweight puts added stress on your lower back. Avoid Smoking:Both the smoke and the nicotine cause your spine to age faster than normal. Proper Posture:Good posture is important for avoiding future problems. A therapist can teach you how to safely stand, sit, and lift. Use warm moist heat to help with pain. Follow up with Primary provider in 2-3 days, This may become a chronic condition and they will be the one to help manage your pain and order additional testing. Follow-up with your doctor for further care and evaluation or seek ER if you develop problems with bladder/bowel function, weakness or loss of feeling in one or both of your legs. Patient Language: Tajik Prescriptions: New cyclobenzaprine 10 mg tablet 10 mg PO TID PRN (Reason: muscle spasm) Qty: 30 0RF methylprednisolone [Medrol (Johnny)] 4 mg tablets,dose pack See Rx Instructions .ROUTE .COMPLEX Qty: 21 0RF Rx Instructions: for 6 days No Action red beet-sour orta extract 250-0.5 mg tablet,chewable 1 tablet PO DAILY cholecalciferol (vitamin D3) 50 mcg (2,000 unit) capsule 50 mcg PO DAILY losartan 25 mg tablet 25 mg PO DAILY Qty: 90 0RF Follow-up/Referrals: Sree Leonardo MD [Primary Care Provider, Family Practice] Time of Disposition: 13:10
== END 2025-05-13 13:15 | disposition home or self-care (01) ==
PROVIDERS: Emergency Provider Nurse Practitioner Family; PCP Family Medicine
DX: M54.50 Low back pain, unspecified (principal); M25.551 Pain in right hip; M79.651 Pain in right thigh; M76.31 Iliotibial band syndrome, right leg; Z86.16 Personal history of COVID-19
CPT/HCPCS: 99213; G0463

== ENCOUNTER 2025-05-22 15:47 | Outpatient (CLI) | payer OTHER, SELFPAY ==
--- OUTSIDE RECORDS SUMMARY | 2025-05-22 16:09 | XMS_ITS | Clinical Summary ---
Author Organization [facility] Address [address] [place] [id number] Care Team Providers Care Apparel Pattern Maker Name Role Phone Sree Leonardo MD Primary Care Provider [phone] Allergies No known active allergies Medications halobetasol 0.05 % cream Apply 1 each topically daily. 1 Active ondansetron (ZOFRAN-ODT) 4 MG disintegrating tablet Take 1 tablet (4 mg total) by mouth every 8 (eight) hours as needed. 20 tablet 4 Active Active Problems Problem Noted Date Diagnosed Date Acute respiratory failure 03/16/2021 Pneumonia due to COVID-19 virus 03/12/2021 COVID-19 [...] Comments Blood Pressure 163/91 08/17/2023 12:15 PM SALES WAREHOUSE DRIVER Pulse 116 08/17/2023 12:15 PM SALES WAREHOUSE DRIVER Temperature 37.5 C (99.5 F) 08/17/2023 12:15 PM SALES WAREHOUSE DRIVER Respiratory Rate 18 08/17/2023 12:15 PM SALES WAREHOUSE DRIVER Oxygen Saturation 97% 08/17/2023 12:15 PM SALES WAREHOUSE DRIVER Inhaled Oxygen Concentration - - Weight 88.5 kg (195 lb) 08/17/2023 12:15 PM SALES WAREHOUSE DRIVER Height 165.1 cm (5' 5) 08/17/2023 12:15 PM SALES WAREHOUSE DRIVER Body Mass Index 32.45 08/17/2023 12:15 PM SALES WAREHOUSE DRIVER Plan of Treatment Health Maintenance Due Date [...] Every 5 Years [address] [facility] HPV 2007 Mammogram Screening 2017 COVID-19 Vaccine (2024-2 6 season) 2025 03/27/2022, 03/05/2022 Influenza Adult (#1) 2025 Meningococcal B Vaccine Aged Out No l [...] and discharge planning General No Yasmeen Barba, PUBLIC WORKS MANAGEReconomic research assistant Advance Directives * Full Code (Latest Code Status on File) Date Activated Date Inactivated Comments 03/16/2021 4:16 AM 03/31/2021 3:34 PM * Full Code Date Activated Date Inactivated Comments 03/11/2021 2:32 PM 03/15/2021 9:09 PM Care Teams Apparel Pattern Maker Relationship Specialty Start Date End Date Sree Leonardo MD [address] [place] [address] PCP - General FAMILY PRACTICE 08/17/23
--- OUTSIDE RECORDS SUMMARY | 2025-05-22 16:09 | XMS_ITS | Clinical Summary ---
Author Organization [facility] Address [address] [place] [address] Care Team Providers Care Banbury Machine Operator Name Role Phone Sharmaine Dukes Primary Care [...] Well Visit/Exam 18-64 1995 Covid-19 Vaccine (3 - 2024-2 6 season) 2025 03/27/2022, 03/05/2022 Influenza Vaccine (#1) 2025 Pneumococcal vaccine <65 Aged Out No longer eligible based on patient's age to complete this topic Insurance [facility] CHOICE PLUS Care Teams Banbury Machine Operator Relationship Specialty Start Date End Date Sharmaine Dukes PA PCP - General Physician Car Repairman 04/05/21 Radha Carney, [facility] [address] [facility] [id number] Telegraph Inspector Infectious Diseases 07/14/22
--- OUTSIDE RECORDS SUMMARY | 2025-05-22 16:09 | XMS_ITS | Clinical Summary ---
Author Organization [facility] Address [address] [place] [address] Care Team Providers Care Medical Lab Director Name Role Phone Unavailable Primary Care Provider Unavailabl e Source Comments [facility],non-owned Affiliates and Associated Physician Practices is amultiple site organization consisting of ambulatory clinics and hospital sitesin [place], [place], [place] and [place]. This disclosure is being madepursuant to the Care Everywhere program and may not contain all information available regarding this patient. Last updated 18.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 Gender Identity Not on file Sexual Orientation Not on file Last Filed Vital Signs Vital Sign Reading Time Taken Comments Blood Pressure 154/99 06/13/2013 5:49 PM INTERNAL CONTROL MANAGER Pulse 84 06/13/2013 5:49 PM INTERNAL CONTROL MANAGER Temperature 36.8 C (98.3 F) 06/13/2013 5:49 PM INTERNAL CONTROL MANAGER Respiratory Rate 16 06/13/2013 5:49 PM INTERNAL CONTROL MANAGER Oxygen Saturation 99% 06/13/2013 5:49 PM INTERNAL CONTROL MANAGER Inhaled Oxygen Concentration - - Weight 81.6 kg (180 lb) 06/13/2013 5:49 PM INTERNAL CONTROL MANAGER Height 165.1 cm (5' 5) 06/13/2013 5:49 PM INTERNAL CONTROL MANAGER Body Mass Index 29.95 06/13/2013 5:49 PM INTERNAL CONTROL MANAGER Plan of Treatment Health Maintenance Due Date [...] of 3 - 19+ 3-dose series) 01/18/1996 DEPRESSION SCREENING 08/10/2024 COVID-19 VACCINE (1 - 2023-2 5 season) 2025 INFLUENZA VACCINE (#1) 2025 ZOSTER VACCINE (1 of 2) 2027 [...]
[2025-05-22 16:17] LABS: Hematocrit 43.8 % (37.0-47.0); Hemoglobin 14.4 g/dL (12.0-15.0); Mean Corpuscular HGB Conc 32.9 g/dl (32-36); Mean Corpuscular Hemoglobin 31.4 pg (26-34); Mean Corpuscular Volume 95.4 fl (80-100); Platelet Count Result 270 k/mm3 (150-375); Red Blood Count 4.59 M/mm3 (4.2-5.4); White Blood Count 8.1 K/mm3 (4.5-10.0)
[2025-05-22 16:31] LABS: Alanine Aminotransferase 28 U/L (6-35); Albumin Level 4.4 g/dL (3.5-5.1); Alkaline Phosphatase 121 U/L (38-126); Anion Gap 3 mmol/L (4-12); Aspartate Amino Transferase 29 U/L (14-36); Bilirubin,Total 0.3 mg/dL (0.2-1.3); Blood Urea Nitrogen 14 mg/dL (7-17); Calcium 9.4 mg/dL (8.4-10.2); Carbon Dioxide 28 mmol/L (22-30); Chloride 103 mmol/L (98-107); Estimated Glomerular Filt Rate > 60; Glucose 96 mg/dL (65-110); Potassium 3.7 mmol/L (3.4-5.0); Sodium 134 mmol/L (137-145); Total Protein 7.6 g/dL (6.3-8.2)
[2025-05-22 16:36] LABS: Iron 75 ug/dL (37-170)
[2025-05-22 16:45] LABS: Percent Iron Saturation 27 % (20-50)
[2025-05-22 16:49] LABS: Free T4 Free Thyroxine 0.90 ng/dL (0.78-2.19)
[2025-05-22 17:06] LABS: Thyroid Stimulating Hormone 1.650 uIU/mL (0.465-4.680)
[2025-05-23 09:08] LABS: Vitamin B12 446 pg/mL (232-1245)
[2025-05-23 16:08] LABS: ANA by IFA Rfx Titer/Pattern Negative (.)
== END 2025-05-22 15:48 | disposition home or self-care (01) ==
LOC: ANHLAB 15:48
PROVIDERS: PCP Family Medicine; Visit Provider Nurse Practitioner Family
DX: E78.5 Hyperlipidemia, unspecified (principal); I10 Essential (primary) hypertension; E53.8 Deficiency of other specified B group vitamins; E55.9 Vitamin D deficiency, unspecified; D64.9 Anemia, unspecified; U09.9 Post COVID-19 condition, unspecified; M25.59 Pain in other specified joint
CPT/HCPCS: 36415; 80053; 82306; 82607; 83540; 83550; 84439; 84443; 85027; 85652; 86038; 86430